=== PATIENT | female | born 1940 | race Caucasian/White ===

== ENCOUNTER 2019-07-06 09:20 | Outpatient (CLI) | payer MEDICARE, SELFPAY ==
[2019-07-06 09:33] LABS: Basophils Absolute Auto 0.1 K/mm3 (0.0-0.1); Basophils Percent Auto 1.8 % (0.2-1.2); Eosinophils Absolute Auto 0.1 K/mm3 (0-0.3); Eosinophils Percent Auto 1.8 % (0-4.4); Hematocrit 42.4 % (37.0-47.0); Hemoglobin 13.5 g/dL (12.0-15.0); Immature Granulocyte Absolute 0.01 K/mm3 (0.00-0.031); Immature Granulocyte Percent A 0.2 % (0-0.5); Lymphocytes Absolute Auto 0.88 K/mm3 (0.9-3.2); Lymphocytes Percent Auto 17.7 % (18.3-44.2); Mean Corpuscular HGB Conc 31.8 g/dl (32-36); Mean Corpuscular Hemoglobin 29.8 pg (26-34); Mean Corpuscular Volume 93.6 fl (80-100); Mean Platelet Volume 11.1 fl (7.4-10.4); Monocytes Absolute Auto 0.5 K/mm3 (0.1-0.6); Monocytes Percent Auto 10.5 % (2.6-8.5); Neutrophils Absolute Auto 3.4 K/mm3 (1.3-6.7); Platelet Count Result 248 k/mm3 (150-375); Red Blood Count 4.53 M/mm3 (4.2-5.4); Red Cell Distribution Width 12.8 % (11.5-14.5)
[2019-07-06 09:53] LABS: Alanine Aminotransferase 16 U/L (4-35); Albumin Level 4.6 g/dL (3.5-5.1); Alkaline Phosphatase 82 U/L (38-126); Aspartate Amino Transferase 21 U/L (14-36); Bilirubin,Total 0.8 mg/dL (0.2-1.3); Blood Urea Nitrogen 23 mg/dL (7-17); Calcium 9.9 mg/dL (8.4-10.2); Carbon Dioxide 30 mmol/L (22-30); Chloride 100 mmol/L (98-107); Cholesterol 180 mg/dL (0-200); Estimated Glomerular Filt Rate 60; Glucose 112 mg/dL (65-105); HDL Direct 89 mg/dL; Sodium 138 mmol/L (137-145); Triglycerides 89 mg/dL (<150)
[2019-07-06 10:04] LABS: LDL Cholesterol Direct 78 mg/dL
== END 2019-07-06 09:21 | disposition home or self-care (01) ==
PROVIDERS: PCP Family Medicine; Visit Provider Family Medicine
DX: E78.5 Hyperlipidemia, unspecified (principal); E55.9 Vitamin D deficiency, unspecified; R73.03 Prediabetes; E03.9 Hypothyroidism, unspecified
CPT/HCPCS: 36415; 80053; 80061; 82306; 83036; 84443; 85025

== ENCOUNTER 2019-07-10 13:06 | Outpatient (CLI) | payer MEDICARE, SELFPAY ==
--- NOTE | ~2019-07-10 | DEXA_ITS ---
Bone Density Report Name: Carmina Clemens Age: 78 Sex: Female Ethnicity: White Date of : 1940 Indication: postmenopausal; parental hip fracture; height loss; cancer; hysterectomy; Referring Provider: Leanna Baum Study: Bone densitometry was performed. Exam Date: July 10, 2019 Accession number: [id number] Bone Density: Region BMD T-score Z-score Classification AP Spine (L1-L4) 0.932 -1.0 1.6 Normal Femoral Neck (Left) 0.714 -1.2 1.1 Osteopenia Total Hip (Left) 0.863 -0.6 1.4 Normal Total Hip Bilateral Avg 0.821 -1.0 1.0 Osteopenia Femoral Neck (Right) 0.639 -1.9 0.4 Osteopenia Total Hip (Right) 0.778 -1.3 0.7 Osteopenia World Health Organization criteria for BMD impression classify patients as: Normal (T-score at or above -1.0), Osteopenia (T-score between -1.0 and -2.5), or Osteoporosis (T-score at or below -2.5). 10-year Fracture Risk(1): Major Osteoporotic Fracture 24% Hip Fracture 15% Reported Risk Factors: [place] (), Neck BMD=0.639, BMI=20.7, parental fracture (1) FRAX(R) Version 3.08. Fracture probability calculated for an untreated patient. Fracture probability may be lower if the patient has received treatment. Previous Exams: Region Exam Age BMD T-score BMD Change BMD Change Date g/cm2 vs Baseline vs Previous AP Spine(L1-L4) 07/10/2019 78 0.932 -1.0 -0.070(-7.0%)# -0.070(-7.0%)# 11/28/2001 61 1.002 -0.4 Total Hip(Left) 07/10/2019 78 0.863 -0.6 0.018(2.2%)# 0.018(2.2%)# 11/28/2001 61 0.845 -0.8 Total Hip(Right) 07/10/2019 78 0.778 -1.3 -0.058(-6.9%)# -0.058(-6.9%)# 11/28/2001 61 0.836 -0.9 *Denotes significance at 95% confidence level, LSC for AP Spine = 0.022 g/cm2, LSC for Total Hip = 0.027 g/cm2 Clinical Information Provided by Patient: Parent has had a hip fracture Has used the following medications: Vitamin D, Calcium Has the following medical conditions: Cancer, Hysterectomy Patient maximum height was 68 Menopause Age: 47 Onset of menses at age 12 Number of children 1 Impression: The patient has low bone mass, based on the Right Femoral Neck T-score. The patient has an estimated ten-year risk of hip fracture of 15% and an estimated ten-year risk of major fracture of 24%, based on the WHO FRAX algorithm. The patient has risk factors, including: parental hip fracture. No significant bone loss was observed. Discussion: BONE DENSITY IS LOW AT ONE OR MORE SKELETAL SITES
== END 2019-07-10 13:07 | disposition home or self-care (01) ==
PROVIDERS: PCP Family Medicine; Visit Provider Family Medicine
DX: Z78.0 Asymptomatic menopausal state (principal); M85.852 Other specified disorders of bone density and structure, left thigh; M85.851 Other specified disorders of bone density and structure, right thigh
CPT/HCPCS: 77080

== ENCOUNTER 2020-09-23 08:37 | Outpatient (CLI) | payer MEDICARE, SELFPAY ==
[2020-09-23 09:54] LABS: Erythrocyte Sedimentation Rate 27 mm/hr (0-20)
[2020-09-23 10:30] LABS: Free T4 Free Thyroxine 1.13 ng/mL (0.78-2.19)
[2020-09-23 10:48] LABS: Folic Acid 14.6 ng/mL (2.76->20)
[2020-10-02 11:55] LABS: Anti Nuclear Antibody Titer 1:40 (Negative)
== END 2020-09-23 08:38 | disposition home or self-care (01) ==
PROVIDERS: PCP Family Medicine
DX: R41.3 Other amnesia (principal)
CPT/HCPCS: 36415; 82607; 82746; 84439; 84443; 85652; 86038; 86039

== ENCOUNTER 2021-01-16 11:34 | Outpatient (CLI) | payer MEDICARE, SELFPAY ==
[2021-01-16 12:34] LABS: Hematocrit 41.8 % (37.0-47.0); Mean Corpuscular HGB Conc 31.1 g/dl (32-36); Mean Corpuscular Hemoglobin 29.3 pg (26-34); Mean Corpuscular Volume 94.4 fl (80-100); Mean Platelet Volume 10.9 fl (7.4-10.4); Platelet Count Result 182 k/mm3 (150-375); Red Blood Count 4.43 M/mm3 (4.2-5.4); Red Cell Distribution Width 12.9 % (11.5-14.5); White Blood Count 4.4 K/mm3 (4.5-10.0)
[2021-01-16 12:40] LABS: Add Urine Microscopic? NO; Appearance Urine Clear (Clear); Bilirubin Urine Negative (Negative); Blood Urine Negative (Negative); Color Urine Straw (Yellow); Glucose Urine UA Negative (Negative); Ketones Urine Negative (Negative); Leukocyte Esterase Ur Negative LEU/UL (Negative); Nitrate Urine Negative (Negative); Protein Urine Negative (Negative); Specific Grav Ur 1.011 (1.001-1.035); Urobilinogen Urine Negative mg/dL (<2.0)
[2021-01-16 12:57] LABS: Alanine Aminotransferase 26 U/L (4-35); Albumin Level 4.2 g/dL (3.5-5.1); Alkaline Phosphatase 86 U/L (38-126); Anion Gap 4 mmol/L (8-16); Aspartate Amino Transferase 27 U/L (14-36); Bilirubin,Total 0.6 mg/dL (0.2-1.3); Blood Urea Nitrogen 21 mg/dL (7-17); CRP < 0.5 mg/dL (<1.0); Calcium 9.5 mg/dL (8.4-10.2); Carbon Dioxide 31 mmol/L (22-30); Chloride 104 mmol/L (98-107); Estimated Glomerular Filt Rate 60; Glucose 98 mg/dL (65-110); Potassium 4.3 mmol/L (3.4-5.0); Sodium 139 mmol/L (137-145)
[2021-01-16 13:01] LABS: Complement C3 120 mg/dL (88-165)
[2021-01-16 13:23] LABS: Erythrocyte Sedimentation Rate 15 mm/hr (0-20)
[2021-01-19 11:24] LABS: SM Antibody <1.0; SM/RNP Antibody <1.0; SS-A <1.0; SS-B <1.0
[2021-01-21 04:57] LABS: Lupus dRVVT 1:1 Mix Interpreta Not Indicated; Lupus dRVVT Screen 35 sec (<=45); PTT-LA Screen 30 sec (<=40)
== END 2021-01-16 11:35 | disposition home or self-care (01) ==
LOC: ANHLAB 11:46
PROVIDERS: PCP Family Medicine; Visit Provider Internal Medicine
DX: R76.8 Other specified abnormal immunological findings in serum (principal); M19.90 Unspecified osteoarthritis, unspecified site; Z51.81 Encounter for therapeutic drug level monitoring; Z79.899 Other long term (current) drug therapy
CPT/HCPCS: 36415; 80053; 81003; 85027; 85613; 85652; 85730; 86140; 86160; 86225; 86235

== ENCOUNTER 2021-07-20 08:46 | Outpatient (CLI) | payer MEDICARE, SELFPAY ==
[2021-07-20 09:28] LABS: Basophils Absolute Auto 0.1 K/mm3 (0.0-0.1); Basophils Percent Auto 1.4 % (0.2-1.2); Eosinophils Absolute Auto 0.1 K/mm3 (0-0.3); Eosinophils Percent Auto 2.2 % (0-4.4); Hemoglobin 13.8 g/dL (12.0-15.0); Immature Granulocyte Absolute 0.01 K/mm3 (0.00-0.031); Immature Granulocyte Percent A 0.3 % (0-0.5); Lymphocytes Absolute Auto 0.81 K/mm3 (0.9-3.2); Lymphocytes Percent Auto 22.2 % (18.3-44.2); Mean Corpuscular HGB Conc 32.1 g/dl (32-36); Mean Corpuscular Hemoglobin 30.4 pg (26-34); Mean Corpuscular Volume 94.7 fl (80-100); Mean Platelet Volume 11.1 fl (7.4-10.4); Monocytes Absolute Auto 0.5 K/mm3 (0.1-0.6); Monocytes Percent Auto 13.7 % (2.6-8.5); Neutrophils Absolute Auto 2.2 K/mm3 (1.3-6.7); Neutrophils Percent Auto 60.2 % (45.5-73.1); Platelet Count Result 175 k/mm3 (150-375); Red Blood Count 4.54 M/mm3 (4.2-5.4); Red Cell Distribution Width 13.3 % (11.5-14.5); White Blood Count 3.7 K/mm3 (4.5-10.0)
[2021-07-20 09:42] LABS: Alanine Aminotransferase 24 U/L (4-35); Albumin Level 4.2 g/dL (3.5-5.1); Alkaline Phosphatase 78 U/L (38-126); Anion Gap 3 mmol/L (8-16); Aspartate Amino Transferase 24 U/L (14-36); Bilirubin,Total 0.6 mg/dL (0.2-1.3); Blood Urea Nitrogen 23 mg/dL (7-17); Calcium 8.8 mg/dL (8.4-10.2); Carbon Dioxide 31 mmol/L (22-30); Chloride 104 mmol/L (98-107); Cholesterol 168 mg/dL (0-200); Estimated Glomerular Filt Rate 60; Glucose 121 mg/dL (65-110); HDL Direct 94 mg/dL; Potassium 4.3 mmol/L (3.4-5.0); Sodium 138 mmol/L (137-145); Triglycerides 77 mg/dL (<150)
[2021-07-20 09:50] LABS: LDL Cholesterol Direct 50 mg/dL
[2021-07-20 10:24] LABS: Vitamin D 25 Hydroxy 39.6 ng/mL
== END 2021-07-20 08:47 | disposition home or self-care (01) ==
LOC: ANHLAB 08:48
PROVIDERS: PCP Family Medicine; Visit Provider Family Medicine
DX: E55.9 Vitamin D deficiency, unspecified (principal); E78.5 Hyperlipidemia, unspecified; E53.8 Deficiency of other specified B group vitamins; R73.03 Prediabetes; E03.9 Hypothyroidism, unspecified; F03.90 Unspecified dementia, unspecified severity, without behavioral disturbance, psychotic disturbance, mood disturbance, and anxiety
CPT/HCPCS: 36415; 80053; 80061; 82306; 82607; 83036; 84443; 85025

== ENCOUNTER 2021-09-11 14:32 | Emergency (ER) | payer MEDICARE, SELFPAY ==
--- NOTE | ~2021-09-11 | XR_ITS ---
XR chest 2V DATE: 09/11/2021 15:11 INDICATION: Cough, fever TECHNIQUE: PA and lateral views COMPARISON: None FINDINGS: Bilateral hyperinflation, suggesting obstructive airways disease. Borderline heart size. There is mild aortic arch calcification, mild aortic unfolding. No pulmonary infiltrate or consolidation, pleural effusion or pulmonary vascular congestion or pneumo thorax is detected. There is diffuse osteopenia. Surgical clips, right breast. IMPRESSION: Bilateral hyperinflation, suggesting COPD Borderline heart size Aortic atherosclerosis Reviewed, dictated and finalized at location A.
[2021-09-11 14:43] VITALS: BP 129/70; PULSE 95; RESP 18; TEMP 38.2; O2SAT 96
--- NOTE | 2021-09-11 14:49 | ED.URI ---
HPI - URI/Sore Throat General Chief Complaint: Fever Stated Complaint: fever Time Seen by Provider: 09/11/21 14:50 Source: patient, RN notes reviewed and old records reviewed Mode of arrival: ambulatory Limitations: no limitations History of Present Illness HPI Narrative: 81 year old female accompanied by spouse presents to express care with complaints of having sore throat, nasal congestion, with drainage,cough and raspy voice for the past 2 days. Patient has been running a fever and has had some chills, has not taken any OTC medication for fever. Spouse states that patient has been using Flonase nasal spray and cough drops. Spouse reports that patient had pneumonia a few years ago. Patient reports that she doesn't feel short of breath and denies any pain to her chest.Patient has been Covid vaccinated and has had flu shot this season. MD elicited complaint: fever, cough, sore throat, rhinorrhea and nasal congestion Pertinent past history: pneumonia Onset (ago): day(s) (2) Able to tolerate fluids by mouth: Yes Related Data Home Medications Medication Instructions Recorded Confirmed calcium carbonate 500 mg-vitamin 1 tablet PO DAILY 07/05/19 09/11/21 D3 5 mcg (200 unit) tablet cholecalciferol (vitamin D3) 50 50 mcg PO DAILY 07/05/19 09/11/21 mcg (2,000 unit) capsule latanoprost 0.005 % eye drops 1 drop EACH EYE DAILY 07/05/19 09/11/21 clobetasol 0.05 % scalp solution 1 applic TOPICAL BID 07/07/20 09/11/21 memantine 10 mg tablet 10 mg PO BID 01/16/21 09/11/21 donepezil 10 mg tablet 10 mg PO QHS 01/19/21 09/11/21 tretinoin 0.025 % topical cream 1 applic TOPICAL QHS 07/16/21 09/11/21 triamcinolone acetonide 0.05 % 1 applic TOPICAL DAILY 07/16/21 09/11/21 topical ointment Allergies Allergy/AdvReac Type Severity Reaction Status Date / Time Penicillins Allergy Mild HIVES Verified 07/16/21 09:13 Review of Systems Review of Systems: CONSTITUTIONAL: Positive for fever, chills, or sweats. EYES: Denies visual changes, redness, or discharge. ENT: Positive rhinorrhea, congestion, sore throat, no otalgia. CARDIOVASCULAR: Denies chest pain, palpitations, or edema. RESPIRATORY: Positive for cough denies any dyspnea. GASTROINTESTINAL: Denies abdominal pain, nausea, vomiting, or diarrhea. GENITOURINARY: Denies dysuria or hematuria. SKIN: Denies rash or itching. MUSCULOSKELETAL: Denies back pain, joint pain, or myalgia. NEUROLOGIC:Positive for frontal headache, no numbness, or weakness. 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 There is no relevant family history pertinent to the presenting complaint Exam Narrative: GENERAL: Well-appearing, fair-nourished, and in no acute distress. HEAD: Normocephalic, atraumatic. EYES: PERRLA and EOMI. ENT: Nares membranes red with clear rhinorrhea no epistaxis. Mucous membranes moist.Tm's normal with dull light reflex some old wax in ear canals noted, t
== END 2021-09-11 15:33 | disposition home or self-care (01) ==
PROVIDERS: Emergency Provider Registered Nurse; PCP Family Medicine
DX: J32.9 Chronic sinusitis, unspecified (principal); E78.5 Hyperlipidemia, unspecified; E03.9 Hypothyroidism, unspecified; M85.80 Other specified disorders of bone density and structure, unspecified site; R73.03 Prediabetes; E55.9 Vitamin D deficiency, unspecified; Z98.42 Cataract extraction status, left eye; Z98.41 Cataract extraction status, right eye; Z85.3 Personal history of malignant neoplasm of breast; F03.90 Unspecified dementia, unspecified severity, without behavioral disturbance, psychotic disturbance, mood disturbance, and anxiety
CPT/HCPCS: 71046; 87804; 99213; G0463

== ENCOUNTER 2021-10-30 14:58 | Emergency (ER) | payer MEDICARE, SELFPAY ==
--- NOTE | 2021-10-30 15:01 | ED.URI ---
HPI - URI/Sore Throat General Chief Complaint: Upper Respiratory Infection Stated Complaint: congestion/cough/tired Time Seen by Provider: 10/30/21 15:01 Mode of arrival: ambulatory History of Present Illness HPI Narrative: Patient is an 81-year-old female who presents the urgent care with her spouse with complaints of cough, fatigue and congestion. Patient states that started it started Tuesday and she has gotten worse since last night. Patient denies of any shortness of breath or chest pain. Patient states she is been taking allergy medication and using Flonase. Denies of any nausea or vomiting. Denies of any ill exposures. No other acute complaints. No acute distress noted. Patient aware of the plan of care. Some parts of this dictation were generated by voice recognition software and may contain typographical and/or grammatical inaccuracies. Related Data Home Medications Medication Instructions Recorded Confirmed calcium carbonate 500 mg-vitamin 1 tablet PO DAILY 07/05/19 09/24/21 D3 5 mcg (200 unit) tablet (Os-Amado 500 + D3) cholecalciferol (vitamin D3) 50 50 mcg PO DAILY 07/05/19 09/24/21 mcg (2,000 unit) capsule latanoprost 0.005 % eye drops 1 drop ophthalmic (eye) DAILY 07/05/19 09/24/21 memantine 10 mg tablet 10 mg PO BID 01/16/21 09/24/21 donepezil 10 mg tablet 10 mg PO QHS 01/19/21 09/24/21 tretinoin 0.025 % topical cream 1 applic topical QHS 07/16/21 09/24/21 Allergies Allergy/AdvReac Type Severity Reaction Status Date / Time Penicillins Allergy Mild HIVES Verified 09/24/21 15:37 Review of Systems Review of Systems: CONSTITUTIONAL: Denies fever, chills, or sweats. Reports of fatigue EYES: Denies visual changes, redness, or discharge. ENT: Reports of sinus congestion, rhinorrhea CARDIOVASCULAR: Denies chest pain, palpitations, or edema. RESPIRATORY: Reports of cough without dyspnea GASTROINTESTINAL: Denies abdominal pain, nausea, vomiting, or diarrhea. GENITOURINARY: Denies dysuria or hematuria. SKIN: Denies rash or itching. MUSCULOSKELETAL: Denies back pain, joint pain, or myalgia. NEUROLOGIC: Denies headache, numbness, or weakness. All other systems reviewed are negative, except as documented in HPI. [facility] Past Medical History Medical History Breast cancer Cataract 06/2017 Colon polyps Cystocele Dementia Dyslipidemia History of right breast cancer Hx of uterine prolapse Hypothyroidism (acquired) Impacted cerumen of both ears Osteopenia Osteopenia after menopause Prediabetes Vitamin D deficiency Surgical History Surgical History History of appendectomy 195 History of cataract surgery both eyes - 06/2017 History of lumpectomy of right breast 2003 History of sacrocolpopexy 2017 History of total hysterectomy 1997 Social History Social History Second hand tobacco smoke exposure: No Alcohol intake: never Substance use: never Substance use type: does not use Comments At the time of my signature, I reviewed and agree with the nursing past medical, surgical, social, and family history. There is no relevant family history pertinent to the patient complaint. Exam Narrative: GENERAL: This is a well-nourished, well-developed patient, in no apparent distress. HEAD: normocephalic, atraumatic. Frontal sinus tenderness EYES: PERRL. Sclera clear/white. Vision is grossly intact. EARS: External ears normal, auditory canals clear and without drainage, TMs normal without perforation. Hearing grossly intact. NOSE: External nose normal with no obvious nasal discharge, nares without redness, no rhinorrhea. THROAT: Mucous membranes moist, posterior pharynx clear. Moderate postnasal drainage NECK: Neck supple CARDIOVASCULAR: Regular rate and rhythm RESPIRATORY: Clear to auscultation. Breath sounds equal bilatera
[2021-10-30 15:11] VITALS: BP 142/71; PULSE 108; RESP 18; TEMP 38.7; O2SAT 98
== END 2021-10-30 15:45 | disposition home or self-care (01) ==
PROVIDERS: Emergency Provider Nurse Practitioner Family; PCP Family Medicine
DX: J10.1 Influenza due to other identified influenza virus with other respiratory manifestations (principal); Z20.822 Contact with and (suspected) exposure to COVID-19; F03.90 Unspecified dementia, unspecified severity, without behavioral disturbance, psychotic disturbance, mood disturbance, and anxiety; E78.5 Hyperlipidemia, unspecified; E03.9 Hypothyroidism, unspecified; M85.80 Other specified disorders of bone density and structure, unspecified site; R73.03 Prediabetes; E55.9 Vitamin D deficiency, unspecified; Z85.3 Personal history of malignant neoplasm of breast; Z98.42 Cataract extraction status, left eye; Z98.41 Cataract extraction status, right eye
CPT/HCPCS: 87426; 87804; 99213; C9803; G0463

== ENCOUNTER 2022-01-25 12:41 | Outpatient (CLI) | payer MEDICARE, SELFPAY ==
[2022-01-25 19:40] LABS: Basophils Absolute Auto 0.1 K/mm3 (0.0-0.1); Basophils Percent Auto 1.1 % (0.2-1.2); Eosinophils Percent Auto 0.3 % (0-4.4); Hematocrit 44.3 % (37.0-47.0); Hemoglobin 13.9 g/dL (12.0-15.0); Immature Granulocyte Absolute 0.03 K/mm3 (0.00-0.031); Immature Granulocyte Percent A 0.5 % (0-0.5); Lymphocytes Absolute Auto 0.69 K/mm3 (0.9-3.2); Lymphocytes Percent Auto 10.7 % (18.3-44.2); Mean Corpuscular HGB Conc 31.4 g/dl (32-36); Mean Corpuscular Hemoglobin 30.3 pg (26-34); Mean Corpuscular Volume 96.7 fl (80-100); Mean Platelet Volume 11.7 fl (7.4-10.4); Monocytes Absolute Auto 0.6 K/mm3 (0.1-0.6); Monocytes Percent Auto 9.1 % (2.6-8.5); Neutrophils Absolute Auto 5.1 K/mm3 (1.3-6.7); Neutrophils Percent Auto 78.3 % (45.5-73.1); Platelet Count Result 183 k/mm3 (150-375); Red Blood Count 4.58 M/mm3 (4.2-5.4); Red Cell Distribution Width 13.2 % (11.5-14.5); White Blood Count 6.5 K/mm3 (4.5-10.0)
[2022-01-25 20:17] LABS: Alanine Aminotransferase 20 U/L (6-35); Albumin Level 4.5 g/dL (3.5-5.1); Alkaline Phosphatase 87 U/L (38-126); Anion Gap 8 mmol/L (8-16); Aspartate Amino Transferase 24 U/L (14-36); Bilirubin,Total 0.5 mg/dL (0.2-1.3); Blood Urea Nitrogen 17 mg/dL (7-17); Calcium 9.7 mg/dL (8.4-10.2); Carbon Dioxide 31 mmol/L (22-30); Chloride 100 mmol/L (98-107); Estimated Glomerular Filt Rate 60; Glucose 91 mg/dL (65-110); Potassium 4.5 mmol/L (3.4-5.0); Sodium 139 mmol/L (137-145)
[2022-01-25 20:38] LABS: Hemoglobin A1C 5.8 % (<5.7)
== END 2022-01-25 12:42 | disposition home or self-care (01) ==
LOC: ANHGOSHLAB 12:45
PROVIDERS: PCP Family Medicine; Visit Provider Family Medicine
DX: R73.03 Prediabetes (principal); E03.9 Hypothyroidism, unspecified; I10 Essential (primary) hypertension; D72.819 Decreased white blood cell count, unspecified
CPT/HCPCS: 36415; 80053; 83036; 84443; 85025

== ENCOUNTER 2022-05-15 14:05 | Emergency (ER) | payer MEDICARE, SELFPAY ==
--- NOTE | ~2022-05-15 | XR_ITS ---
EXAMINATION: XR chest 2V Exam Date/Time: 05/15/2022 16:35 [employer] HISTORY: WHEEZING, COUGH Comparison: 09/11/2021. RESULT: Lines, tubes, and devices: Surgical clips over the right breast. Lungs and pleura: Subtle, subsegmental reticulonodular and groundglass opacities in the left mid and lower lung, with minimal left lateral costophrenic angle blunting. Senescent change. Stable right up per lobe granuloma. Cardiomediastinal silhouette: Stable. Other: No acute osseous or upper abdominal finding. IMPRESSION: Left mid and lower lobe/lingular pulmonary opacities may reflect bronchiolitis as can be seen with at ypical infection, asthma, aspiration, and small airways disease. Reviewed, dictated and finalized at location K. L SERVICE SUPERVISOR IMPRESSION: Left mid and lower lobe/lingular pulmonary opacities may reflect bronchiolitis as can be seen with atypical infection, asthma, aspiration, and small airways d isease.
[2022-05-15 15:29] VITALS: BP 158/62; PULSE 84; RESP 16; TEMP 37.4; O2SAT 100
--- NOTE | 2022-05-15 16:20 | ED.FEVER ---
HPI - Fever General Chief Complaint: Fever Stated Complaint: FEVER/CONGESTION Time Seen by Provider: 05/15/22 16:20 Source: patient and RN notes reviewed Mode of arrival: ambulatory Limitations: no limitations History of Present Illness HPI Narrative: 81-year-old female with history of dementia presented with for complaint of productive cough of yellow/green sputum for about 4 days. She also endorses sinus pressure and congestion, hoarse voice, and low fever up to 100 at home. She has a history of pneumonia. She denies wheezing, nausea, vomiting, diarrhea. She has not taken anything for her symptoms. He states they did an at-home COVID test that was negative. Related Data Home Medications Medication Instructions Recorded Confirmed calcium carbonate 500 mg-vitamin 1 tablet PO DAILY 07/05/19 05/15/22 D3 5 mcg (200 unit) tablet (Os-Amado 500 + D3) cholecalciferol (vitamin D3) 50 50 mcg PO DAILY 07/05/19 05/15/22 mcg (2,000 unit) capsule latanoprost 0.005 % eye drops 1 drop ophthalmic (eye) DAILY 07/05/19 05/15/22 memantine 10 mg tablet 10 mg PO BID 01/16/21 05/15/22 donepezil 10 mg tablet 10 mg PO QHS 01/19/21 05/15/22 clobetasol 0.05 % scalp solution 1 applic topical DAILY 01/25/22 05/15/22 estradiol 0.01% (0.1 mg/gram) 1 g vaginal 2XW 01/25/22 05/15/22 vaginal cream Allergies Allergy/AdvReac Type Severity Reaction Status Date / Time Penicillins Allergy Mild HIVES Verified 05/15/22 16:26 Review of Systems Review of Systems: CONSTITUTIONAL: Denies malaise, chills, sweats, fever EYES: Denies visual changes, redness, or discharge ENT: Reports rhinorrhea, congestion, sinus pain, denies otalgia, sore throat CARDIOVASCULAR: Denies chest pain, palpitations, edema RESPIRATORY: Reports cough, post nasal drainage. Denies dyspnea GASTROINTESTINAL: Denies abdominal pain, nausea, vomiting, diarrhea MUSCULOSKELETAL: Denies myalgia NEUROLOGIC: Denies headache PMFSH Past Medical History Medical History Breast cancer Cataract 06/2017 Colon polyps Cystocele Dementia Dyslipidemia History of right breast cancer Hx of uterine prolapse Hypothyroidism (acquired) Impacted cerumen of both ears Osteopenia Osteopenia after menopause Prediabetes Vitamin D deficiency Surgical History Surgical History History of appendectomy 195 History of cataract surgery both eyes - 06/2017 History of lumpectomy of right breast 2003 History of sacrocolpopexy 2017 History of total hysterectomy 1997 Social History Social History Smoking status: Never smoker Second hand tobacco smoke exposure: No Alcohol intake: never Substance use: never Substance use type: does not use Additional living arrangements comments: Gender identity (if verbalized by the patient): Female Sexual Orientation (if Verbalized by the Patient): Straight or Heterosexual Spiritual care concerns: No Exam Narrative: GENERAL: well-appearing, nontoxic no acute distress. HEAD: Normocephalic EYES: PERRLA, conjunctivae clear ENT: Mucous membranes moist. TMs pearly stewart with dull light reflex bilaterally; no tragal tenderness. Oropharynx without lesions or exudate NECK: Supple. No lymphadenopathy CHEST: Clear to auscultation, slightly diminished lower lobes; No wheezing, rhonchi, rales, or stridor. No respiratory distress, speaks in full sentences. HEART: Regular rate and rhythm. No murmur heard. SKIN: Warm, dry, no rash. NEURO: Alert and oriented x3. PSYCH: Normal mood and affect Course Course Emergency Course: Patient is aware of diagnosis, understands and agrees to treatment plan. Anticipatory guidance given. Patient agrees to follow-up as directed and is aware of reasons to seek care at the emergency department. Portions of this record may peace
== END 2022-05-15 18:08 | disposition home or self-care (01) ==
PROVIDERS: Emergency Provider Nurse Practitioner Family; PCP Family Medicine
DX: R05.9 Cough, unspecified (principal); E78.5 Hyperlipidemia, unspecified; E03.9 Hypothyroidism, unspecified; M85.80 Other specified disorders of bone density and structure, unspecified site; R73.03 Prediabetes; E55.9 Vitamin D deficiency, unspecified; Z85.3 Personal history of malignant neoplasm of breast; F03.90 Unspecified dementia, unspecified severity, without behavioral disturbance, psychotic disturbance, mood disturbance, and anxiety
CPT/HCPCS: 71046; 99213; G0463

== ENCOUNTER 2022-07-23 10:52 | Outpatient (CLI) | payer MEDICARE, SELFPAY ==
[2022-07-23 19:22] LABS: Basophils Absolute Auto 0.1 K/mm3 (0.0-0.1); Basophils Percent Auto 1.8 % (0.2-1.2); Eosinophils Percent Auto 0.8 % (0-4.4); Hematocrit 41.7 % (37.0-47.0); Hemoglobin 13.6 g/dL (12.0-15.0); Immature Granulocyte Absolute 0.01 K/mm3 (0.00-0.031); Immature Granulocyte Percent A 0.3 % (0-0.5); Mean Corpuscular HGB Conc 32.6 g/dl (32-36); Mean Corpuscular Hemoglobin 30.7 pg (26-34); Mean Corpuscular Volume 94.1 fl (80-100); Mean Platelet Volume 11.7 fl (7.4-10.4); Monocytes Absolute Auto 0.4 K/mm3 (0.1-0.6); Monocytes Percent Auto 10.2 % (2.6-8.5); Neutrophils Absolute Auto 2.5 K/mm3 (1.3-6.7); Neutrophils Percent Auto 63.9 % (45.5-73.1); Platelet Count Result 158 k/mm3 (150-375); Red Blood Count 4.43 M/mm3 (4.2-5.4); Red Cell Distribution Width 13.5 % (11.5-14.5); White Blood Count 3.9 K/mm3 (4.5-10.0)
[2022-07-23 19:44] LABS: Alanine Aminotransferase 27 U/L (6-35); Albumin Level 4.4 g/dL (3.5-5.1); Alkaline Phosphatase 84 U/L (38-126); Anion Gap 2 mmol/L (8-16); Aspartate Amino Transferase 27 U/L (14-36); Bilirubin,Total 0.7 mg/dL (0.2-1.3); Blood Urea Nitrogen 19 mg/dL (7-17); Calcium 9.1 mg/dL (8.4-10.2); Carbon Dioxide 32 mmol/L (22-30); Chloride 105 mmol/L (98-107); Cholesterol 170 mg/dL (0-200); Estimated Glomerular Filt Rate 60; Glucose 109 mg/dL (65-110); HDL Direct 90 mg/dL; Potassium 4.3 mmol/L (3.4-5.0); Sodium 139 mmol/L (137-145); Triglycerides 80 mg/dL (<150)
[2022-07-23 19:54] LABS: Vitamin D 25 Hydroxy 40.8 ng/mL
[2022-07-23 19:55] LABS: LDL Cholesterol Direct 52 mg/dL
== END 2022-07-23 10:53 | disposition home or self-care (01) ==
LOC: ANHGOSHLAB 10:54
PROVIDERS: PCP Family Medicine; Visit Provider Family Medicine
DX: R73.03 Prediabetes (principal); E78.5 Hyperlipidemia, unspecified; E03.9 Hypothyroidism, unspecified; E53.8 Deficiency of other specified B group vitamins; I10 Essential (primary) hypertension; J34.89 Other specified disorders of nose and nasal sinuses; E55.9 Vitamin D deficiency, unspecified
CPT/HCPCS: 36415; 80053; 80061; 82306; 82607; 83036; 84443; 85025

== ENCOUNTER 2023-01-19 10:45 | Outpatient (CLI) | payer MEDICARE, SELFPAY ==
[2023-01-19 19:28] LABS: Basophils Absolute Auto 0.1 K/mm3 (0.0-0.1); Basophils Percent Auto 1.3 % (0.2-1.2); Eosinophils Percent Auto 0.5 % (0-4.4); Hematocrit 41.7 % (37.0-47.0); Hemoglobin 13.3 g/dL (12.0-15.0); Lymphocytes Absolute Auto 0.62 K/mm3 (0.9-3.2); Lymphocytes Percent Auto 16.7 % (18.3-44.2); Mean Corpuscular HGB Conc 31.9 g/dl (32-36); Mean Corpuscular Volume 94.1 fl (80-100); Mean Platelet Volume 12.4 fl (7.4-10.4); Monocytes Absolute Auto 0.4 K/mm3 (0.1-0.6); Monocytes Percent Auto 10.8 % (2.6-8.5); Neutrophils Absolute Auto 2.6 K/mm3 (1.3-6.7); Neutrophils Percent Auto 70.7 % (45.5-73.1); Platelet Count Result 168 k/mm3 (150-375); Red Blood Count 4.43 M/mm3 (4.2-5.4); Red Cell Distribution Width 13.1 % (11.5-14.5); White Blood Count 3.7 K/mm3 (4.5-10.0)
[2023-01-19 20:57] LABS: Alanine Aminotransferase 22 U/L (6-35); Albumin Level 4.1 g/dL (3.5-5.1); Alkaline Phosphatase 87 U/L (38-126); Anion Gap 4 mmol/L (8-16); Aspartate Amino Transferase 25 U/L (14-36); Bilirubin,Total 0.6 mg/dL (0.2-1.3); Blood Urea Nitrogen 17 mg/dL (7-17); Calcium 9.2 mg/dL (8.4-10.2); Carbon Dioxide 32 mmol/L (22-30); Chloride 101 mmol/L (98-107); Cholesterol 161 mg/dL (0-200); Estimated Glomerular Filt Rate > 60; Glucose 127 mg/dL (65-110); HDL Direct 88 mg/dL; Potassium 3.7 mmol/L (3.4-5.0); Sodium 137 mmol/L (137-145); Triglycerides 57 mg/dL (<150)
[2023-01-19 21:09] LABS: LDL Cholesterol Direct 59 mg/dL
[2023-01-23 11:36] LABS: Vitamin D 1,25 (OH)2 Total 38 pg/mL (18-72); Vitamin D2 1,25 (OH)2 <8 pg/mL; Vitamin D3 1,25 (OH)2 38 pg/mL
== END 2023-01-19 10:46 | disposition home or self-care (01) ==
PROVIDERS: PCP Family Medicine; Visit Provider Nurse Practitioner Family
DX: I10 Essential (primary) hypertension (principal); E03.9 Hypothyroidism, unspecified; E55.9 Vitamin D deficiency, unspecified; Z78.0 Asymptomatic menopausal state; Z85.3 Personal history of malignant neoplasm of breast
CPT/HCPCS: 36415; 80053; 80061; 82652; 84443; 85025

== ENCOUNTER 2023-01-24 10:37 | Outpatient (CLI) | payer MEDICARE, SELFPAY ==
[2023-01-24 12:27] LABS: Hemoglobin A1C 6.5 % (<5.7)
== END 2023-01-24 10:38 | disposition home or self-care (01) ==
LOC: ANHGOSHLAB 10:39
PROVIDERS: PCP Family Medicine; Visit Provider Nurse Practitioner Family
DX: R73.9 Hyperglycemia, unspecified (principal)
CPT/HCPCS: 36415; 83036

== ENCOUNTER 2023-03-29 14:55 | Emergency (ER) | payer MEDICARE, SELFPAY ==
[2023-03-29 15:02] VITALS: BP 160/82; PULSE 81; RESP 16; TEMP 38; O2SAT 98
--- NOTE | 2023-03-29 15:38 | ED.URI ---
HPI - URI/Sore Throat General Chief Complaint: Upper Respiratory Infection Stated Complaint: Sore Throat;Cough Time Seen by Provider: 03/29/23 15:39 Source: patient, family, RN notes reviewed and old records reviewed Mode of arrival: ambulatory Limitations: no limitations History of Present Illness HPI Narrative: 82-year-old female accompanied by spouse with complaints of sore throat, fevers, cough,sinus congestion and drainage since attending football game Tuesday night. Patient has history of pneumonia in past, ear infections and early onset Alzheimer but is alert and oriented and is able to answer questions appropriately. Patient is febrile at present time has been taking some Tyylenol, using her nasal spray and also taking Claritin.Patient reports that she is hoarse and she has has some nasal drainage and cough which is dry, denies any shortness of breath or any body aches. MD elicited complaint: fever, cough, sore throat, rhinorrhea, nasal congestion and other (hoarseness) Pertinent past history: pneumonia and other (ear infections) Onset (ago): day(s) (4days) Pain scale (0-10): 5 Able to tolerate fluids by mouth: Yes Treatments prior to arrival: acetaminophen and other (nasal spray and Claritin) Related Data Home Medications Medication Instructions Recorded Confirmed cholecalciferol (vitamin D3) 50 50 mcg PO DAILY 07/05/19 03/29/23 mcg (2,000 unit) capsule latanoprost 0.005 % eye drops 1 drop ophthalmic (eye) DAILY 07/05/19 03/29/23 memantine 10 mg tablet 10 mg PO BID 01/16/21 03/29/23 donepezil 10 mg tablet 10 mg PO QHS 01/19/21 03/29/23 clobetasol 0.05 % scalp solution 1 applic topical DAILY 01/25/22 03/29/23 estradiol 0.01% (0.1 mg/gram) 1 g vaginal 2XW 01/25/22 03/29/23 vaginal cream Allergies Allergy/AdvReac Type Severity Reaction Status Date / Time Penicillins Allergy Mild HIVES Verified 03/29/23 15:21 Review of Systems Review of Systems: CONSTITUTIONAL: Reports malaise, chills, sweats, or fever. EYES: Denies visual changes, redness, or discharge. ENT: Reports rhinorrhea, congestion, sinus pain, no otalgia and sore throat.hoarseness CARDIOVASCULAR: Denies chest pain, palpitations, or edema. RESPIRATORY: Reports cough.? Denies acute dyspnea. GASTROINTESTINAL: Denies abdominal pain, nausea, vomiting, diarrhea SKIN: Denies rash or itching. MUSCULOSKELETAL: Denies myalgia. NEUROLOGIC: Denies headache. All systems reviewed & are unremarkable except as noted in HPI and below PMFSH Past Medical History Medical History Breast cancer Cataract 06/2017 Colon polyps Cystocele Dementia Dyslipidemia History of right breast cancer Hx of uterine prolapse Hypothyroidism (acquired) Impacted cerumen of both ears Osteopenia Osteopenia after menopause Perforation of right tympanic membrane Prediabetes Vesicular eczema of hands and feet Vitamin D deficiency Surgical History Surgical History History of appendectomy 1951 History of cataract surgery both eyes - 06/2017 History of lumpectomy of right breast 2002 History of sacrocolpopexy 2017 History of total hysterectomy 1997 Social History Social History Smoking status: Never smoker Second hand tobacco smoke exposure: No Alcohol intake: never Substance use: never Substance use type: does not use Lack of Transportation: No Lack of Food: Never True Current Housing: I Have Housing Concerned About Future Housing: No Difficulty Paying Gas/Electric Bills: No Difficulty Paying for Meds: No Currently Unemployed: No Education: Master's Degree or Higher Difficulty w/ Childcare or Family Care: No Living arrangements: with family Additional living arrangements comments: Occupation/Education: retired Gender identity (if verbalized by th
== END 2023-03-29 16:00 | disposition home or self-care (01) ==
PROVIDERS: Emergency Provider Registered Nurse; PCP Family Medicine
DX: J01.90 Acute sinusitis, unspecified (principal); R05.9 Cough, unspecified; F03.90 Unspecified dementia, unspecified severity, without behavioral disturbance, psychotic disturbance, mood disturbance, and anxiety; E78.5 Hyperlipidemia, unspecified; E03.9 Hypothyroidism, unspecified; M85.80 Other specified disorders of bone density and structure, unspecified site; R73.03 Prediabetes; E55.9 Vitamin D deficiency, unspecified; Z85.3 Personal history of malignant neoplasm of breast
CPT/HCPCS: 87081; 87880; 99213; G0463

== ENCOUNTER → 2023-04-27 12:55 | Outpatient (CLI) | payer MEDICARE, SELFPAY ==
--- NOTE | ~2023-04-27 | CT_ITS ---
EXAMINATION: CT chest abdomen pelvis w con DATE: 04/27/2023 13:29 INDICATION: Abnormal weight loss, history of breast cancer TECHNIQUE: Transaxial computed tomographic images of the chest, abdomen, and pelvis were obtained aft er the administration of 100 cc of Omnipaque 350 intravenous contrast. The dose-length product (DLP) was 346.58 mGy-cm. Automated exposure control and iterative reconstruction technique were employed. COMPARISON: None FINDINGS: CHEST CT: There are patchy airspace opacities of the lower lobes, right upper lobe, lingula, and right middle l obe. No pleural effusion or pneumothorax. There is right atrial enlargement of the heart. There are l umpectomy changes in the right breast. Skin thickening of the right breast likely reflects radiation change. There are no pathologically enlarged thoracic lymph nodes. There is mild thoracic spondylosis . ABDOMEN/PELVIS CT: The liver, spleen, gallbladder, and adrenal glands are normal. There is marked enlargement of the carson creatic duct with diffuse atrophy of the pancreas. There is a possible mass in the tail of the pancre as measuring up to 1.2 cm. There is wall thickening of the stomach near the gastroesophageal junction . The right kidney is unremarkable. Cysts of the left kidney measure up to 5 mm. There is calcified a therosclerosis of the aorta and many of the other arteries. No pathologically enlarged abdominal or p elvic lymph nodes are identified. No free intraperitoneal gas or evidence of bowel obstruction. A mod erate volume of colonic stool is present. There is mild lumbar spondylosis. IMPRESSION: 1. Patchy airspace opacities of the lungs, likely pneumonia. 2. Marked enlargement of the pancreatic duct, atrophy of the pancreas, and possible mass in the tail of the pancreas. Further evaluation by MRCP is recommended. 3. Wall thickening of the stomach near the gastroesophageal junction which could reflect gastritis or possibly malignancy. Consider endoscopy. Reviewed, dictated and finalized at location F. [employer] IMPRESSION: 1. Patchy airspace opacities of the lungs, likely pneumonia. 2. Marked enlargement of the pancreatic duct, atrophy of the pancreas, and poss ible mass in the tail of the pancreas. Further evaluation by MRCP is recommende d. 3. Wall thickening of the stomach near the gastroesophageal junction which coul d reflect gastritis or possibly malignancy. Consider endoscopy.
[2023-04-27 13:16] LABS: Estimated Glomerular Filt Rate 60
== END ==
PROVIDERS: PCP Family Medicine; Visit Provider Family Medicine
DX: R63.4 Abnormal weight loss (principal); R91.8 Other nonspecific abnormal finding of lung field
CPT/HCPCS: 71260; 74177; Q9967

== ENCOUNTER 2023-05-02 14:22 | Outpatient (CLI) | payer MEDICARE, SELFPAY ==
[2023-05-02 15:03] LABS: Hematocrit 45.4 % (37.0-47.0); Hemoglobin 13.8 g/dL (12.0-15.0); Mean Corpuscular HGB Conc 30.4 g/dl (32-36); Mean Corpuscular Hemoglobin 29.2 pg (26-34); Mean Platelet Volume 11.2 fl (7.4-10.4); Platelet Count Result 185 k/mm3 (150-375); Red Blood Count 4.73 M/mm3 (4.2-5.4); Red Cell Distribution Width 14.6 % (11.5-14.5); White Blood Count 4.6 K/mm3 (4.5-10.0)
[2023-05-02 15:13] LABS: Alanine Aminotransferase 22 U/L (6-35); Albumin Level 4.5 g/dL (3.5-5.1); Alkaline Phosphatase 75 U/L (38-126); Anion Gap 8 mmol/L (8-16); Aspartate Amino Transferase 27 U/L (14-36); Bilirubin,Total 0.8 mg/dL (0.2-1.3); Blood Urea Nitrogen 15 mg/dL (7-17); Calcium 9.5 mg/dL (8.4-10.2); Carbon Dioxide 28 mmol/L (22-30); Chloride 103 mmol/L (98-107); Estimated Glomerular Filt Rate > 60; Glucose 96 mg/dL (65-110); Potassium 4.4 mmol/L (3.4-5.0); Sodium 139 mmol/L (137-145)
== END 2023-05-02 14:23 | disposition home or self-care (01) ==
PROVIDERS: PCP Family Medicine; Visit Provider Nurse Practitioner
DX: R63.4 Abnormal weight loss (principal); K86.9 Disease of pancreas, unspecified; K86.89 Other specified diseases of pancreas; K52.9 Noninfective gastroenteritis and colitis, unspecified
CPT/HCPCS: 36415; 80053; 85027

== ENCOUNTER 2023-05-03 09:41 | Outpatient (NON) | payer MEDICARE, SELFPAY ==
[2023-05-10 20:11] LABS: Calprotectin, Stool 13 mcg/g; Pancreatic Elastase, Stool 389 mcg/g
== END 2023-05-03 09:42 | disposition home or self-care (01) ==
LOC: ANHLAB 09:42
PROVIDERS: PCP Family Medicine; Visit Provider Nurse Practitioner
DX: K52.9 Noninfective gastroenteritis and colitis, unspecified (principal); R63.4 Abnormal weight loss; K86.89 Other specified diseases of pancreas
CPT/HCPCS: 82653; 83993; 87045; 87177; 87209; 87269; 87427; 87449; 87493

== ENCOUNTER 2023-06-24 09:01 | Outpatient (CLI) | payer MEDICARE, SELFPAY ==
--- NOTE | ~2023-06-24 | DEXA_ITS ---
Bone Density Report Name: KERLINE OTERO Age: 82 Sex: Female Ethnicity: White Date of : 1940 Indication: postmenopausal; screening for osteoporosis; parental hip fracture; height loss; Referring Provider: DL JUNIOR Study: Bone densitometry was performed. Exam Date: June 24, 2023 Accession number: [id number] Bone Density: Region BMD T-score Z-score Classification AP Spine(L1-L4) 0.897 -1.4 1.5 Osteopenia Femoral Neck (Left) 0.646 -1.8 0.6 Osteopenia Total Hip (Left) 0.783 -1.3 1.0 Osteopenia Femoral Neck (Right) 0.587 -2.4 0.1 Osteopenia Total Hip (Right) 0.714 -1.9 0.4 Osteopenia Total Hip Mean 0.748 -1.6 0.7 Osteopenia World Health Organization criteria for BMD impression classify patients as: Normal (T-score at or above -1.0), Osteopenia (T-score between -1.0 and -2.5), or Osteoporosis (T-score at or below -2.5). 10-year Fracture Risk(1): Major Osteoporotic Fracture 27% Hip Fracture 20% Reported Risk Factors: [place] (), Neck BMD=0.587, BMI=17.6, parental fracture (1) FRAX(R) Version 3.08. Fracture probability calculated for an untreated patient. Fracture probability may be lower if the patient has received treatment. Clinical Information Provided by Patient: Parent has had a hip fracture Patient maximum height was 68.0 Menopause Age: 47 No regular weight bearing exercise Drinks caffeinated beverages Onset of menses at age 11 Number of children 1 Impression: The patient has low bone mass, based on the Right Femoral Neck T-score. The patient has an estimated ten-year risk of hip fracture of 20% and an estimated ten-year risk of major fracture of 27%, based on the WHO FRAX algorithm. The patient has risk factors, including: parental hip fracture. Discussion: BONE DENSITY IS LOW AT ONE OR MORE SKELETAL SITES. THE PATIENT'S BMD AND CLINICAL RISK FACTORS CONTRIBUTE TO THIS PATIENT'S HIGH RISK OF FRACTURE. This patient's lowest T-score is low at one or more skeletal sites. It meets the World Health Organization's (WHO) criteria for ?low bone mass? (T-score between -1.0 and -2.5). The patient's 10-year risk of hip fracture and 10 year risk of a major osteoporotic fracture as calculated by FRAX exceeds the threshold where pharmacological therapy is recommended by the National Osteoporosis Foundation (NOF). However, all treatment decisions require clinical judgment and consideration of individual patient factors, including patient preferences, comorbidities, previous drug use, risk factors not captured in the FRAX model (e.g., frailty, falls, vitamin D deficiency, increased bone turnover, interval significant decline in bone density) and possible under or overestimation of fracture risk by FRAX. The patient should follow a healthful lifestyle (good nutrit
== END 2023-06-24 09:02 | disposition home or self-care (01) ==
PROVIDERS: PCP Family Medicine; Visit Provider Nurse Practitioner Family
DX: M85.89 Other specified disorders of bone density and structure, multiple sites (principal); Z78.0 Asymptomatic menopausal state
CPT/HCPCS: 77080

== ENCOUNTER 2023-07-31 12:08 | Inpatient (IN) | payer MEDICARE, SELFPAY ==
--- NOTE | ~2023-07-31 | XR_ITS ---
XR hip RT 2V w AP pelvis 07/31/2023 13:46 Indication: Right hip pain Procedure: 3 views right hip Comparison: No prior studies for comparison. Findings: There is a nondisplaced right femoral subcapital fracture. Pelvic rings are intact. No soft tissue abnormality. No foreign bodies. Impression: 1: Nondisplaced subcapital fracture of the right femur. Reviewed, dictated and finalized at location A. GN INTERN Impression: 1: Nondisplaced subcapital fracture of the right femur.
--- NOTE | ~2023-07-31 | XR_ITS ---
XR elbow RT min 3V 07/31/2023 13:46 INDICATION: Right elbow pain after injury. PROCEDURE: 3 nonstandard views of the right elbow. No true lateral view performed. COMPARISON: No prior studies for comparison. FINDINGS: Fracture, dislocation or subluxation is not identified. The soft tissues appear within norm al limits. No foreign bodies are identified. IMPRESSION: 1: NO ACUTE BONE OR JOINT ABNORMALITY IDENTIFIED. Reviewed, dictated and finalized at location A. GER RISK
--- NOTE | ~2023-07-31 | XR_ITS ---
EXAMINATION: XR chest 1V portable Exam Date/Time: 07/31/2023 14:40 [employer] AND [employer]ICE [employer] WORKERS HISTORY: Fall/injury. Subcapital right femur fracture. History of breast cancer. Comparison: 05/15/2022; x-ray elbow and hip, same date; CT cap 04/27/2023. RESULT: Lines, tubes, and devices: Right breast surgical clips. Lungs and pleura: Senescent changes. Biapical pleural scarring. Granulomatous calcification. Cardiomediastinal silhouette: Stable. Other: No acute osseous or upper abdominal finding. IMPRESSION: No acute cardiopulmonary process. Reviewed, dictated and finalized at location K. ICAL AND OFFICE SUPPORT WORKERS
--- NOTE | ~2023-07-31 | XR_ITS ---
EXAMINATION: XR surgery orthopedic DATE: 08/02/2023 08:47 INDICATION: Subcapital fracture of proximal right femur. TECHNIQUE: 6 intraoperative fluoroscopic views of right hip were obtained. I was not present. Fluoros copy exposure time was 130 seconds. COMPARISON: Pelvis and right hip radiographs 07/31/2023 FINDINGS: There is a subcapital fracture of right femoral neck. The distal fracture fragment demonstr ates impaction and medial displacement. Internal fixation is seen with 3 lag screws. IMPRESSION: 1. Subcapital fracture of right femoral neck status post internal fixation. Reviewed, dictated and finalized at location A. EGEE OPERATOR
[2023-07-31 11:59] VITALS: BP 197/93; PULSE 73; RESP 16; TEMP 36.5; O2SAT 100
--- NOTE | 2023-07-31 13:02 | ED.FALL ---
HPI - Fall General Chief Complaint: Fall Stated Complaint: fall - hip pain History of Present Illness HPI Narrative: 82-year-old with history of dementia presenting to the emergency department for evaluation of right elbow injury and right hip injury after a ground level fall. Patient was leaning in the car when she got dizzy and after getting in the car she ultimately had a fall landing on her right elbow and right hip. Patient denies striking her head denies any loss consciousness. After the fall patient was unable to ambulate. Related Data Home Medications Medication Instructions Recorded Confirmed cholecalciferol (vitamin D3) 50 50 mcg PO DAILY 07/05/19 07/31/23 mcg (2,000 unit) capsule latanoprost 0.005 % eye drops 1 drop ophthalmic (eye) DAILY 07/05/19 07/31/23 memantine 10 mg tablet 10 mg PO BID 01/16/21 07/31/23 clobetasol 0.05 % scalp solution 1 applic topical DAILY 01/25/22 07/31/23 estradiol 0.01% (0.1 mg/gram) 1 g vaginal 2XW 01/25/22 07/31/23 vaginal cream donepezil 10 mg tablet 5 mg PO QHS 04/11/23 07/31/23 timolol 0.5 % eye drops 1 drp EACH EYE DAILY 06/14/23 07/31/23 Allergies Allergy/AdvReac Type Severity Reaction Status Date / Time Penicillins Allergy Mild HIVES Verified 06/16/23 13:55 Review of Systems Review of Systems: All systems reviewed & are unremarkable except as noted in HPI and below PMFSH Past Medical History Medical History (Updated 07/31/23 @ 19:12 by Nathan Garcia MD) Cancer of right breast (12/2002) Status post lumpectomy and radiation therapy. Chronic diarrhea Chronic venous insufficiency of lower extremity Colon polyps Dementia Dyslipidemia Glaucoma Hypothyroidism (acquired) Intraductal papillary mucinous neoplasm Irritable bowel syndrome Osteopenia after menopause Pancreatic atrophy Prediabetes Vesicular eczema of hands and feet Vitamin D deficiency Surgical History Surgical History (Updated 07/31/23 @ 16:52 by Renea Machado PA-C) History of appendectomy (1951) History of bilateral cataract extraction (06/2017) History of lumpectomy of right breast (2002) History of sacrocolpopexy (2016) History of total hysterectomy (1997) Family History Family History (Updated 07/31/23 @ 16:54 by Renea Machado PA-C) Other Hypertension Social History Social History (Updated 07/31/23 @ 16:55 by Renea Machado PA-C) Social History: Surrogate medical decision maker: Zack Clemens, son. Code status: Full code. Smoking status: Never smoker Second hand tobacco smoke exposure: No Alcohol intake: never Substance use: never Substance use type: does not use Do You Feel Safe in your Home?: Yes Lack of Transportation: No Lack of Food: Never True Current Housing: I Have Housing Concerned About Future Housing: No Difficulty Paying Gas/Electric Bills: No Difficulty Paying for Meds: No Currently Unemployed: No Education: Master's Degree or Higher Difficulty w/ Childcare or Family Care: No Living arrangements: with family Additional living arrangements comments: Lives with spouse in independent living at [facility]. Occupation/Education: retired Spiritual care concerns: No Exam Narrative: APPEARANCE: Well appearing, no pain, no distress, well-nourished. HEAD: normocephalic, atraumatic. EYES: PERRLA/EOMI, conjunctivae clear. NOSE: Normal no drainage EARS:TMS clear with good light reflex. THROAT: Pharynx clear, no exudate. NECK: Supple. No adenopathy, no masses. RESPIRATORY: Airway patent, respirations nonlabored. Clear to auscultation bilaterally, no rales, rhonchi, wheezing. CARDIOVASCULAR: Regular rate and rhythm without murmurs rubs or gallops. ABDOMINAL: Soft, nontender, nondistended, normal bowel sounds MUSCULOSKELETAL: Tenderness to right hip NEURO: Alert. Cranial nerves II through XII intact. Grossly intact SKIN: Abrasion to right elbow Course Course Emergency Course: Patient was admitted for
[2023-07-31] MEDS: fentaNYL CITRATE INJ (*CRX) 100 MCG/2 ML VIAL 50 MCG IV PUSH ×2 (13:20→17:32)
[2023-07-31 13:25] VITALS: BP 179/90; PULSE 70; RESP 18; O2SAT 95
[2023-07-31 13:39] LABS: Basophils Percent Auto 0.4 % (0.2-1.2); Eosinophils Percent Auto 0.4 % (0-4.4); Hematocrit 42.5 % (37.0-47.0); Hemoglobin 13.5 g/dL (12.0-15.0); Immature Granulocyte Absolute 0.03 K/mm3 (0.00-0.031); Immature Granulocyte Percent A 0.4 % (0-0.5); Lymphocytes Absolute Auto 0.59 K/mm3 (0.9-3.2); Mean Corpuscular HGB Conc 31.8 g/dl (32-36); Mean Corpuscular Volume 94.4 fl (80-100); Mean Platelet Volume 10.8 fl (7.4-10.4); Monocytes Absolute Auto 0.5 K/mm3 (0.1-0.6); Monocytes Percent Auto 6.6 % (2.6-8.5); Neutrophils Absolute Auto 6.2 K/mm3 (1.3-6.7); Neutrophils Percent Auto 84.2 % (45.5-73.1); Platelet Count Result 167 k/mm3 (150-375); Red Cell Distribution Width 13.2 % (11.5-14.5); White Blood Count 7.4 K/mm3 (4.5-10.0)
[2023-07-31 13:49] LABS: Prothrombin Time 13.4 Seconds (11.1-14.7)
[2023-07-31 13:50] LABS: Alanine Aminotransferase 25 U/L (6-35); Albumin Level 4.2 g/dL (3.5-5.1); Alkaline Phosphatase 91 U/L (38-126); Anion Gap 3 mmol/L (8-16); Aspartate Amino Transferase 27 U/L (14-36); Bilirubin,Total 0.7 mg/dL (0.2-1.3); Blood Urea Nitrogen 18 mg/dL (7-17); Calcium 9.3 mg/dL (8.4-10.2); Carbon Dioxide 32 mmol/L (22-30); Chloride 103 mmol/L (98-107); Estimated CRCL calculation 45 ml/min; Estimated Glomerular Filt Rate > 60; Glucose 105 mg/dL (65-110); Partial Thromboplastin Time 28.1 SECONDS (22.3-36.8); Potassium 3.5 mmol/L (3.4-5.0); Sodium 138 mmol/L (137-145)
[2023-07-31 14:43] VITALS: BP 179/78; PULSE 76; RESP 18; O2SAT 95
--- NOTE | 2023-07-31 15:13 | PC.NURSE ---
Report given to Petty BECKHAM, all questions answered
[2023-07-31 16:15] VITALS: BMI 18.8
--- NOTE | 2023-07-31 16:15 | ADMGEN ---
This patient, Carmina Clemens, was admitted to [facility] Surg Room 317-02 @ 1615. Patient/family oriented to hospital policies and general routines including ID bracelet, bed and alarms, visiting hours, pain management, procedures, bathroom and other care routines, personal items, smoking policy, room service/diet, and visiting hours. Information on how to activate the Rapid Response Team has been discussed. Patient/Family are encouraged to report perceived risks to care and to ask questions if they do not understand what they are told or what they should do.
[2023-07-31 16:44] VITALS: BP 192/89; PULSE 76; RESP 20; TEMP 36.9; O2SAT 95; BMI 18.8
--- NOTE | 2023-07-31 16:48 | PM.IMHP ---
H&P: HPI History of Present Illness Date/Time: 07/31/23 17:25 Chief Complaint: Right hip pain after fall. Narrative: This is a pleasant 82-year-old female with dementia, dyslipidemia, hypothyroidism, pancreatic insufficiency, irritable bowel syndrome with diarrhea, and history of breast cancer who presented to the emergency department via EMS for evaluation of right hip pain after fall. The patient provides the following history. She felt fine when she got up this morning and went to mormonism. When they returned home and she was attempting to get out of the car, she bent over to pick something up at which time she felt a little dizzy and this caused her to lose her balance and fall to the ground onto her right side. She had immediate pain in her right hip and was unable to get herself up. Imaging in the ED showed a nondisplaced subcapital fracture of the right femur and she is being admitted in this setting for pain control and orthopedic consultation. She denies head trauma and loss of consciousness in the fall and she denies other injuries although she did sustain a skin tear of the right elbow. No syncope or near syncope. She denies paresthesias, skin color, and temperature changes distal to the fracture site. Review of Systems Review of Systems: Twelve systems were reviewed. She has frequent loose stools which is unchanged. She denies exertional chest pain, pleuritic pain, palpitations, and shortness of breath. No nausea or vomiting. No dysuria. Except as documented, all other systems were reviewed and are negative. [facility] Past Medical History Medical History Cancer of right breast (12/2002) Status post lumpectomy and radiation therapy. Chronic diarrhea Chronic venous insufficiency of lower extremity Colon polyps Dementia Dyslipidemia Glaucoma Hypothyroidism (acquired) Intraductal papillary mucinous neoplasm Irritable bowel syndrome Osteopenia after menopause Pancreatic atrophy Prediabetes Vesicular eczema of hands and feet Vitamin D deficiency Surgical History Surgical History History of appendectomy (1951) History of bilateral cataract extraction (06/2017) History of lumpectomy of right breast (2002) History of sacrocolpopexy (2016) History of total hysterectomy (1997) Family History Family History Other Hypertension Social History Social History Social History: Surrogate medical decision maker: Zack Clemens, son. Code status: Full code. Smoking status: Never smoker Second hand tobacco smoke exposure: No Alcohol intake: never Substance use: never Substance use type: does not use Do You Feel Safe in your Home?: Yes Lack of Transportation: No Lack of Food: Never True Current Housing: I Have Housing Concerned About Future Housing: No Difficulty Paying Gas/Electric Bills: No Difficulty Paying for Meds: No Currently Unemployed: No Education: Master's Degree or Higher Difficulty w/ Childcare or Family Care: No Living arrangements: with family Additional living arrangements comments: Lives with spouse in independent living at [facility]. Occupation/Education: retired Spiritual care concerns: No Meds Home Medications and Allergies Home Medications Medication Instructions Recorded Confirmed Type cholecalciferol (vitamin D3) 50 50 mcg PO DAILY 07/05/19 07/31/23 History mcg (2,000 unit) capsule latanoprost 0.005 % eye drops 1 drop ophthalmic (eye) DAILY 07/05/19 07/31/23 History memantine 10 mg tablet 10 mg PO BID 01/16/21 07/31/23 History clobetasol 0.05 % scalp solution 1 applic topical DAILY 01/25/22 07/31/23 History estradiol 0.01% (0.1 mg/gram) 1 g vaginal 2XW 01/25/22 07/31/23 History vaginal cream loratadine 10 mg tablet (Clar
[2023-07-31] MEDS: traMADol HCL (*CRX) 25 MG TABLET PO (18:30)
[2023-07-31 20:00] VITALS: BP 158/73; PULSE 82; RESP 18; TEMP 37.1; O2SAT 93
[2023-07-31] MEDS: AZELASTINE HCL NASAL 0.1% 137 MCG/SPR 30 ML BTL 1 SPRAY NASAL (23:53)
[2023-07-31] MEDS: ATORVASTATIN 10 MG TABLET PO (23:54)
[2023-07-31] MEDS: DONEPEZIL HCL 5 MG TABLET PO (23:54)
[2023-08-01 05:58] VITALS: BP 171/77; PULSE 87; RESP 16; TEMP 36.8; O2SAT 94
[2023-08-01 06:46] LABS: Hematocrit 40.8 % (37.0-47.0); Hemoglobin 13.3 g/dL (12.0-15.0); Mean Corpuscular HGB Conc 32.6 g/dl (32-36); Mean Corpuscular Hemoglobin 30.2 pg (26-34); Mean Corpuscular Volume 92.7 fl (80-100); Mean Platelet Volume 11.5 fl (7.4-10.4); Platelet Count Result 161 k/mm3 (150-375); Red Cell Distribution Width 13.1 % (11.5-14.5); White Blood Count 8.3 K/mm3 (4.5-10.0)
[2023-08-01 07:00] LABS: Anion Gap 5 mmol/L (8-16); Blood Urea Nitrogen 16 mg/dL (7-17); Calcium 9.2 mg/dL (8.4-10.2); Carbon Dioxide 27 mmol/L (22-30); Chloride 101 mmol/L (98-107); Estimated CRCL calculation 45 ml/min; Estimated Glomerular Filt Rate > 60; Glucose 156 mg/dL (65-110); Potassium 3.5 mmol/L (3.4-5.0); Sodium 133 mmol/L (137-145)
[2023-08-01 08:00] VITALS: O2SAT 94
--- NOTE | 2023-08-01 08:11 | PM.CNOR ---
Assessment and Plan Assessment and plan (1) Subcapital fracture of right hip: Qualifiers: Encounter type: initial encounter Fracture type: closed Qualified Code(s): S72.011A - Unspecified intracapsular fracture of right femur, initial encounter for closed fracture Code(s): S72.011A - Unspecified intracapsular fracture of right femur, initial encounter for closed fracture Status: Acute Plan Nondisplaced valgus and slightly impacted fracture of the femoral neck. Will benefit from percutaneous pin fixation. Risks, benefits, and alternatives discussed. Plan for surgery tomorrow morning. Will be partial weight-bearing with a walker for 1 month. May need short-stay rehab. Proceed with percutaneous pinning right hip femoral neck fracture. We discussed the risks, benefits, and alternatives to surgery. History of Present Illness HPI Consult date: 08/01/23 Chief complaint: Right femur fracture Narrative: Patient complains of acute right hip pain. Fell from standing height. Admitted through the emergency room for definitive managemnet. No previous hip pain. Comfortable at rest. No numbness, tingling, or other associated symptoms. Lives in assisted living with her . Review of Systems Review of Systems: Denies loss of consciousness. All systems reviewed & are unremarkable except as noted in HPI and below PMFSH Past Medical History Medical History Cancer of right breast (12/2002) Status post lumpectomy and radiation therapy. Chronic diarrhea Chronic venous insufficiency of lower extremity Colon polyps Dementia Dyslipidemia Glaucoma Hypothyroidism (acquired) Intraductal papillary mucinous neoplasm Irritable bowel syndrome Osteopenia after menopause Pancreatic atrophy Prediabetes Vesicular eczema of hands and feet Vitamin D deficiency Surgical History Surgical History History of appendectomy (1951) History of bilateral cataract extraction (06/2017) History of lumpectomy of right breast (2002) History of sacrocolpopexy (2016) History of total hysterectomy (1997) Family History Family History Other Hypertension Social History Social History Social History: Surrogate medical decision maker: Zack Clemens, son. Code status: Full code. Smoking status: Never smoker Second hand tobacco smoke exposure: No Alcohol intake: never Substance use: never Substance use type: does not use Do You Feel Safe in your Home?: Yes Lack of Transportation: No Lack of Food: Never True Current Housing: I Have Housing Concerned About Future Housing: No Difficulty Paying Gas/Electric Bills: No Difficulty Paying for Meds: No Currently Unemployed: No Education: Master's Degree or Higher Difficulty w/ Childcare or Family Care: No Living arrangements: with family Additional living arrangements comments: Lives with spouse in independent living at [facility]. Occupation/Education: retired Spiritual care concerns: No Meds Home Medications and Allergies Home Medications Medication Instructions Recorded Confirmed Type cholecalciferol (vitamin D3) 50 50 mcg PO DAILY 07/05/19 07/31/23 History mcg (2,000 unit) capsule latanoprost 0.005 % eye drops 1 drop ophthalmic (eye) DAILY 07/05/19 07/31/23 History memantine 10 mg tablet 10 mg PO BID 01/16/21 07/31/23 History clobetasol 0.05 % scalp solution 1 applic topical DAILY 01/25/22 07/31/23 History estradiol 0.01% (0.1 mg/gram) 1 g vaginal 2XW 01/25/22 07/31/23 History vaginal cream loratadine 10 mg tablet (Claritin) 10 mg PO DAILY #90 tabs 07/12/22 07/31/23 Rx fluticasone propionate 50 2 spray intranasal DAILY #48 grams 07/21/22 07/31/23 Rx mcg/actuation nasal spray,suspension (A
[2023-08-01 08:58] VITALS: O2SAT 94
[2023-08-01] MEDS: ACETAMINOPHEN 325 MG TABLET 650 MG PO (10:11)
[2023-08-01] MEDS: AZELASTINE HCL NASAL 0.1% 137 MCG/SPR 30 ML BTL 1 SPRAY NASAL ×2 (10:15→20:49)
[2023-08-01] MEDS: FLUTICASONE PROPIONATE 0.05% NA SPR 16 GM BTL (*BKC) 2 SPRAY NASAL (10:16)
[2023-08-01] MEDS: CHOLECALCIFEROL 1,000 UNITS TABLET 2000 UNITS PO (10:18)
[2023-08-01] MEDS: LIPASE/AMYLASE/PROTEASE 12,000 UNITS CAP 2 CAP PO ×2 (10:18→17:01)
[2023-08-01] MEDS: MEMANTINE 10 MG TABLET PO ×2 (10:19→17:01)
[2023-08-01] MEDS: LORATADINE 10 MG TABLET PO (10:19)
[2023-08-01] MEDS: LATANOPROST 0.005% OP SOLN 2.5 ML BTL 1 DROP EACH EYE (10:26)
[2023-08-01] MEDS: TIMOLOL MALEATE 0.5% OP SOLN 5 ML BOTTLE 1 DROP EACH EYE (10:26)
[2023-08-01] MEDS: CLOBETASOL PROPIONATE 0.05% CREAM 15 GM 1 APPLIC TOPICAL (10:30)
[2023-08-01 14:00] VITALS: BP 150/77; PULSE 69; RESP 16; TEMP 37.3; O2SAT 96
--- NOTE | 2023-08-01 16:59 | ECG_ITS ---
Measurements Intervals [place] Rate: 75 P: 59 SC: 153 QRS: 19 QRSD: 88 T: 78 QT: 394 QTc: 441 Interpretive Statements SINUS RHYTHM POOR R-WAVE PROGRESSION LOW VOLTAGE IN THE LIMB LEADS BORDERLINE ECG NO PREVIOUS ECG AVAILABLE FOR COMPARISON Electronically Signed On 08-01-2023 18:22:23 ECONOMIC DEVELOPER by Neftali Cherry M.D.
--- NOTE | 2023-08-01 17:54 | PM.IMPN ---
Progress Note: A&P Assessment and Plan (1) Dyslipidemia: Code(s): E78.5 - Hyperlipidemia, unspecified Status: Acute (2) Hypothyroidism (acquired): Code(s): E03.9 - Hypothyroidism, unspecified Status: Acute (3) Subcapital fracture of right hip: Qualifiers: Encounter type: initial encounter Fracture type: closed Qualified Code(s): S72.011A - Unspecified intracapsular fracture of right femur, initial encounter for closed fracture Code(s): S72.011A - Unspecified intracapsular fracture of right femur, initial encounter for closed fracture Status: Acute (4) Elevated blood pressure reading: Code(s): R03.0 - Elevated blood-pressure reading, without diagnosis of hypertension Status: Acute Plan Blood pressures have come down a bit. Continue to monitor and give good pain control. NPO at midnight for pinning of right hip with Orthopedic surgery. EKG reviewed. SCDs. NPO overnight. Full code. Subjective Date/time seen: 08/01/23 17:54 Interval history: No acute overnight events. The patient has no pain while resting in bed. Denies any other complaints. Review of Systems Review of Systems: All systems reviewed & are unremarkable except as noted in HPI and below (Subjective) Exam Const: General: comfortable and no acute distress Eyes: Pupils: Equal, round and reactive pupils present Neck: Neck: supple Resp: Effort & Inspection: normal respiratory effort Auscultation: clear to auscultation bilaterally Cardio: Rate: regular rate Rhythm: regular rhythm GI: GI Palp: Yes Soft to palpation and No Tenderness to palpation present (GI) Neuro: Other: Good motor strength in all 4 extremities otherwise limited by pain on the right lower extremity. Neurovascularly intact. Extrem: General: no edema Objective Data Vital Signs Vital Signs: Vital Signs - 24 hr 07/31/23 20:00 08/01/23 05:58 08/01/23 08:58 Temperature 98.8 F 98.3 F Pulse Rate 82 87 Respiratory Rate 18 16 Blood Pressure 158/73 H 171/77 H Pulse Oximetry 93 94 94 Oxygen Delivery Room Air 08/01/23 08:00 08/01/23 14:00 Temperature 99.1 F Pulse Rate 69 Respiratory Rate 16 Blood Pressure 150/77 H Pulse Oximetry 94 96 Oxygen Delivery Room Air Intake/Output Intake/Output: Intake & Output 07/29/23 07/30/23 07/31/23 08/01/23 23:59 23:59 23:59 23:59 Intake Total 240 Output Total 500 Balance -260 Meds/Results Medications: Active Medications Generic Name Dose Route Start Last Admin Trade Name Freq PRN Reason Stop Dose Admin Acetaminophen 650 mg 07/31/23 16:59 08/01/23 10:11 Acetaminophen 325 Mg Tablet PO 650 mg Q6H PRN Administration Mild Pain (1-3) or Fever Lipase/Protease/Amylase 2 cap 08/01/23 08:00 08/01/23 17:01 Lipase/Amylase/Protease 12,000 Units Cap PO 2 cap TIDWM JUNITO Administration Atorvastatin Calcium 10 mg 07/31/23 22:50 07/31/23 23:54 Atorvastatin 10 Mg Tablet PO 10 mg QHS JUNITO Administration Azelastine HCl 1 spray 07/31/23 22:50 08/01/23 10:15 Azelastine Hcl Nasal 0.1% 137 Mcg/Spr 30 Ml Btl NASAL 1 spray Q12HR JUNITO Administration Clobetasol Propionate 1 applic 08/01/23 09:00 08/01/23 10:30 Clobetasol Propionate 0.05% Cream 15 Gm TOPICAL 1 applic DAILY JUNITO Administration Donepezil HCl 5 mg 07/31/23 22:55 07/31/23 23:54 Donepezil Hcl 5 Mg Tablet PO 5 mg QHS JUNITO Administration Fentanyl Citrate 50 mcg 07/31/23 14:38 07/31/23 17:32 Fentanyl Citrate Inj (*Crx) 100 Mcg/2 Ml Vial IV PUSH 50 mcg Q2H PRN Administration Pain Rated 7-10 Fluticasone Propionate 2 spray 08/01/23 09:00 08/01/23 10:16 Fluticasone Propionate 0.05% Na Spr 16 Gm Btl (*Bkc) NASAL 2 spray DAILY JUNITO Administration Latanoprost 1 drop 08/01/23 09:00 08/01/23 10:26 Latanoprost 0.005% Op Soln 2.5 Ml Btl EACH EYE 1 drop DAILY JUNITO Administration Levothyroxine
[2023-08-01 19:00] VITALS: BP 177/87; PULSE 87; RESP 16; TEMP 36.8; O2SAT 91
[2023-08-01] MEDS: traMADol HCL (*CRX) 25 MG TABLET PO (20:46)
[2023-08-01] MEDS: ATORVASTATIN 10 MG TABLET PO (20:47)
[2023-08-01] MEDS: DONEPEZIL HCL 5 MG TABLET PO (20:47)
[2023-08-02] VITALS (13 sets, daily range): BP systolic 124–166; BP diastolic 65–81; PULSE 60–88; RESP 14–18; TEMP 36.2–37.8; O2SAT 90–100
[2023-08-02] MEDS: LACTATED RINGERS 1,000 ML 30 ML IV CONT (06:19)
[2023-08-02 06:23] LABS: Hematocrit 44.7 % (37.0-47.0); Hemoglobin 14.4 g/dL (12.0-15.0); Mean Corpuscular HGB Conc 32.2 g/dl (32-36); Mean Corpuscular Hemoglobin 29.8 pg (26-34); Mean Corpuscular Volume 92.5 fl (80-100); Mean Platelet Volume 11.2 fl (7.4-10.4); Platelet Count Result 154 k/mm3 (150-375); Red Blood Count 4.83 M/mm3 (4.2-5.4); Red Cell Distribution Width 12.9 % (11.5-14.5); White Blood Count 8.2 K/mm3 (4.5-10.0)
[2023-08-02 06:33] LABS: Anion Gap 6 mmol/L (8-16); Blood Urea Nitrogen 16 mg/dL (7-17); Calcium 9.1 mg/dL (8.4-10.2); Carbon Dioxide 27 mmol/L (22-30); Chloride 101 mmol/L (98-107); Estimated CRCL calculation 52 ml/min; Estimated Glomerular Filt Rate > 60; Glucose 160 mg/dL (65-110); Magnesium 2.2 mg/dL (1.6-2.3); Potassium 3.5 mmol/L (3.4-5.0); Sodium 134 mmol/L (137-145)
[2023-08-02] MEDS: KETOROLAC 15 MG/ML VIAL (*BKC) IV PUSH (07:20)
--- NOTE | 2023-08-02 07:20 | WPDANESEPPF ---
Anes - Initial Pre Proc Eval Procedure: Operation Date: 08/02/23 07:30 Proposed Procedures p Right Hip Pinning - Calixto Saenz MD Date/Time: 08/02/23 07:20 Surgeon: Jake Jimenez MD Pre Op Diagnosis: Right femur fracture Patient Data Age: 82 Gender: F Height: 1.7 m Weight: 54.5 kg Last Vital Signs Temp 37.8 C H 08/02/23 06:19 Pulse 88 08/02/23 06:19 Resp 16 08/02/23 06:19 BP 166/81 H 08/02/23 06:19 Pulse Ox 90 08/02/23 06:19 O2 Del Method Room Air 08/02/23 06:19 Allergies Allergy/AdvReac Type Severity Reaction Status Date / Time Penicillins Allergy Mild HIVES Verified 08/02/23 06:39 Home Medications Medication Instructions Recorded Confirmed Type cholecalciferol (vitamin D3) 50 50 mcg PO DAILY 07/05/19 07/31/23 History mcg (2,000 unit) capsule latanoprost 0.005 % eye drops 1 drop ophthalmic (eye) DAILY 07/05/19 07/31/23 History memantine 10 mg tablet 10 mg PO BID 01/16/21 07/31/23 History clobetasol 0.05 % scalp solution 1 applic topical DAILY 01/25/22 07/31/23 History estradiol 0.01% (0.1 mg/gram) 1 g vaginal 2XW 01/25/22 07/31/23 History vaginal cream loratadine 10 mg tablet (Claritin) 10 mg PO DAILY #90 tabs 07/12/22 07/31/23 Rx fluticasone propionate 50 2 spray intranasal DAILY #48 grams 07/21/22 07/31/23 Rx mcg/actuation nasal spray,suspension (Allergy Relief (fluticasone)) azelastine 137 mcg (0.1 %) nasal 1 spray intranasal Q12H #30 mL 10/25/22 07/31/23 Rx spray aerosol atorvastatin 10 mg tablet 10 mg PO QHS #90 tabs 03/04/23 07/31/23 Rx levothyroxine 50 mcg tablet 50 mcg PO DAILY #90 tabs 03/10/23 07/31/23 Rx donepezil 10 mg tablet 5 mg PO QHS 04/11/23 07/31/23 History psyllium husk (with sugar) 3.4 1 tbsp PO DAILY #575 grams 04/11/23 07/31/23 Rx gram/12 gram oral powder (Metamucil (with sugar)) timolol 0.5 % eye drops 1 drp EACH EYE DAILY 06/14/23 07/31/23 History [id number] 1 cap PO TID 30 days #90 caps 06/16/23 07/31/23 Rx 24,000-76,000-120,000 unit capsule,delayed rel (Creon) Laboratory Tests 08/02/23 05:55 WBC 8.2 K/mm3 (4.5-10.0) RBC 4.83 M/mm3 (4.2-5.4) Hgb 14.4 g/dL (12.0-15.0) Hct 44.7 % (37.0-47.0) MCV 92.5 fl (80-100) MCH 29.8 pg (26-34) MCHC 32.2 g/dl (32-36) RDW 12.9 % (11.5-14.5) Plt Count 154 k/mm3 (150-375) MPV 11.2 H fl (7.4-10.4) Sodium 134 L mmol/L (137-145) Potassium 3.5 mmol/L (3.4-5.0) Chloride 101 mmol/L (98-107) Carbon Dioxide 27 mmol/L (22-30) Anion Gap 6 L mmol/L (8-16) BUN 16 mg/dL (7-17) Creatinine 0.60 L mg/dL (0.7-1.0) Estim Creat Clear Calc 52 ml/min Estimated GFR > 60 (59 - ) Glucose 160 H mg/dL (65-110) Calcium 9.1 mg/dL (8.4-10.2) Magnesium 2.2 mg/dL (1.6-2.3) Patient hx anesthesia problems: none Family hx anesthesia problems: none Results Review: All pre-operative results and documents have been reviewed as part of the pre-operative evaluation. [facility] Past Medical History Medical History Cancer of right breast (12/2002) Status post lumpectomy and radiation therapy. Chronic diarrhea Chronic venous insufficiency of lower extremity Colon polyps Dementia Dyslipidemia Glaucoma Hypothyroidism (acquired) Intraductal papillary mucinous neoplasm Irritable bowel syndrome Osteopenia after menopause Pancreatic atrophy Prediabetes Vesicular eczema of hands and feet Vitamin D deficiency Surgical History Surgical History History of appendectomy (1951) History of bilateral cataract extraction (06/2017) History of lumpectomy of right breast (2002) History of sacrocolpopexy (2016) History of total hysterectomy (1997) Family History Family History Other Hyperte
--- NOTE | 2023-08-02 07:22 | WPDHPUPDATE1 ---
History and Physical Update Update Date/Time: 08/02/23 07:22 History and Physical has been reviewed, including an updated exam of the patient. There are NO changes in the patient's condition. Risks, benefits, and alternatives have been discussed and questions answered. Patient agrees to proceed with procedure.
[2023-08-02] MEDS: ceFAZolin 2 GM/D5W 50 ML 2 GM/50 ML BAG IVPB ×3 (07:29→22:39)
--- NOTE | 2023-08-02 07:37 | W.PM.PROC2 ---
Procedure Note - Detailed Date of Procedure 08/02/23 Pre-op Diagnosis Right hip femoral neck fracture Post-op Diagnosis Same Procedure Performed Closed reduction percutaneous pinning right hip femoral neck fracture Surgeon Calixto Saenz MD Mechanical Shovel Operator Jana Templeton PA-C Anesthesia General Indications Valgus impacted subcapital femoral neck fracture Findings Mild displacement noted with fluoroscopy compared to initial films. Closed reduction performed with gentle manipulation. Description of Procedure Preoperative antibiotics were given. The patient was brought to the operating room. In general anesthetic was administered. The patient was carefully placed on the fracture table. By planar fluoroscopy was used to confirm maintenance of reduction and treatment of reduction as necessary. The hip was prepped and draped in usual sterile fashion with a sterile curtain. The fracture was observed to have mildly displaced. Adduction and internal rotation combined with mild traction and then release of the traction reduced the fracture nicely. A stab incision was created at the inferior trochanter. The guide pin was placed into the center of the femoral neck inferiorly. Two additional guide pins were placed superiorly were inverted triangle shape. Measurements were taken and the outer cortex was drilled. Three partially-threaded cannulated screws were placed. The crease incisions were closed with interrupted 4-0 Monocryl suture followed by Steri-Strips. The sterile dressing was applied. The patient was transferred to the recovery room in stable condition and extubated. There were no complications. Physician office support assistant, Jana Templeton PA-C, required for surgery; including patient positioning on the fracture table, draping, wound closure, and dressing placement. Implants 7.3 Synthes partially threaded 16 mm cannulated screws x 3. Estimated Blood Loss 10 Drains No Packing No Pathology None sent Complications No immediate complications Condition Stable Disposition PACU [facility] Billing Surgery - Charge Forward: Surgery Billing
[2023-08-02] MEDS: BUPIVACAINE/EPINEPHRINE 0.5% 30 ML VIAL INFILTRATE (08:23)
--- NOTE | 2023-08-02 10:14 | PC.NURSE ---
Returned from OR per [ ]. Report received from [Shanda].
[2023-08-02] MEDS: SODIUM CHLORIDE 0.9% IV 1,000 ML 125 ML IV CONT (10:44)
[2023-08-02] MEDS: CLOBETASOL PROPIONATE 0.05% CREAM 15 GM 1 APPLIC TOPICAL (10:48)
[2023-08-02] MEDS: FLUTICASONE PROPIONATE 0.05% NA SPR 16 GM BTL (*BKC) 2 SPRAY NASAL (10:49)
[2023-08-02] MEDS: TIMOLOL MALEATE 0.5% OP SOLN 5 ML BOTTLE 1 DROP EACH EYE (10:50)
[2023-08-02] MEDS: LATANOPROST 0.005% OP SOLN 2.5 ML BTL 1 DROP EACH EYE (10:50)
[2023-08-02] MEDS: polyethylene glycoL 3350 17 GM POWD.PACK PO (10:55)
[2023-08-02] MEDS: SENNA/DOCUSATE SODIUM TABLET 2 TAB PO ×2 (10:55→16:36)
[2023-08-02] MEDS: FAMOTIDINE 20 MG TABLET PO ×2 (10:55→22:40)
[2023-08-02] MEDS: ENOXAPARIN 40 MG/0.4 ML SYRINGE SUB-Q (10:57)
[2023-08-02] MEDS: ACETAMINOPHEN 500 MG TABLET 1000 MG PO ×2 (12:02→17:00)
[2023-08-02] MEDS: LIPASE/AMYLASE/PROTEASE 12,000 UNITS CAP 2 CAP PO ×2 (12:02→16:37)
--- NOTE | 2023-08-02 16:11 | PM.IMPN ---
Progress Note: A&P Assessment and Plan (1) Subcapital fracture of right hip: Qualifiers: Encounter type: initial encounter Fracture type: closed Qualified Code(s): S72.011A - Unspecified intracapsular fracture of right femur, initial encounter for closed fracture Code(s): S72.011A - Unspecified intracapsular fracture of right femur, initial encounter for closed fracture Status: Acute Assessment and Plan: -Status post close reduction percutaneous pinning right hip valgus impacted subcapital femoral fracture on 08/02/2023. -mobility, therapy, DVT prophylaxis per surgery team. -patient lives at [facility] [place] with her . Care coordination arranging Dispo for her to return there with therapy. -remove Barrios catheter on 08/03 (2) Dyslipidemia: Code(s): E78.5 - Hyperlipidemia, unspecified Status: Acute Assessment and Plan: Continue atorvastatin (3) Hypothyroidism (acquired): Code(s): E03.9 - Hypothyroidism, unspecified Status: Acute Assessment and Plan: Continue levothyroxine (4) Elevated blood pressure reading: Code(s): R03.0 - Elevated blood-pressure reading, without diagnosis of hypertension Status: Acute Assessment and Plan: Controlled. Plan This is a pleasant 82-year-old female with a history of dementia, dyslipidemia, hypothyroidism, pancreatic insufficiency, irritable bowel syndrome with diarrhea, history of breast cancer presenting to [place] ER after right hip pain from a fall. She was found to have a subcapital fracture of the right femur. She was hypertensive on admission on 07/31/2023. FEN: Resume diet. Saline lock IV. GI prophylaxis: Not indicated DVT prophylaxis: Lovenox 40 mg q.day Lines: Peripheral IV, Barrios catheter Code Status: Full code Dispo: Stable Subjective Date/time seen: 08/02/23 16:11 Interval history: No acute overnight events. and 2 sons present at bedside. All questions answered to the satisfaction. The patient believes she is stronger and her pain is improved. She has no other complaints elicited. Review of Systems Review of Systems: All systems reviewed & are unremarkable except as noted in HPI and below (Subjective) Exam Const: General: comfortable and no acute distress Other: A&O x3 although forgetful Eyes: Pupils: Equal, round and reactive pupils present Resp: Effort & Inspection: normal respiratory effort Cardio: Rate: regular rate Rhythm: regular rhythm GI: GI Palp: Yes Soft to palpation and No Tenderness to palpation present (GI) Neuro: Other: Right lower extremity flexion at the hip limited by pain. Neurovascularly intact Extrem: General: no edema Objective Data Vital Signs Vital Signs: Vital Signs - 24 hr 08/01/23 19:00 08/02/23 06:00 08/02/23 06:19 Temperature 98.3 F 98.9 F 100.1 F H Pulse Rate 87 75 88 Respiratory Rate 16 18 16 Blood Pressure 177/87 H 129/67 166/81 H Pulse Oximetry 91 91 90 Oxygen Delivery Room Air Oxygen Flow Rate 08/02/23 08:50 08/02/23 09:05 08/02/23 09:20 Temperature 97.8 F Pulse Rate 70 63 60 Respiratory Rate 16 14 14 Blood Pressure 154/75 H 139/74 146/71 H Pulse Oximetry 100 100 100 Oxygen Delivery Simple Face Mask Simple Face Mask Simple Face Mask Oxygen Flow Rate 8 8 8 08/02/23 09:35 08/02/23 09:50 08/02/23 10:12 Temperature Pulse Rate 74 72 76 Respiratory Rate 14 16 16 Blood Pressure 143/74 H 152/79 H 151/74 H Pulse Oximetry 91 90 93 Oxygen Delivery Room Air Room Air Room Air Oxygen Flow Rate 08/02/23 09:08 08/02/23 09:38 08/02/23 13:27 Temperature 97.5 F L 98.2 F Pulse Rate 76 74 Respiratory Rate 16 16 Blood Pressure 140/69 142/79 H Pulse Oximetry 92 97 Oxygen Delivery Room Air Oxygen Flow Rate 08/02/23 10:38 Temperature 97.9 F Pulse Rate 76 Respiratory Rate 16 Blood Pressure 136/65 Pulse Oximetry 95 Oxygen Delivery Oxygen Flow Rate
[2023-08-02] MEDS: MEMANTINE 10 MG TABLET PO (16:37)
[2023-08-02] MEDS: DONEPEZIL HCL 5 MG TABLET PO (22:40)
[2023-08-02] MEDS: ATORVASTATIN 10 MG TABLET PO (22:40)
[2023-08-02] MEDS: AZELASTINE HCL NASAL 0.1% 137 MCG/SPR 30 ML BTL 1 SPRAY NASAL (22:41)
[2023-08-03 00:07] VITALS: BP 128/74; PULSE 64; RESP 16; TEMP 37.2; O2SAT 94
[2023-08-03 04:40] VITALS: BP 156/71; PULSE 75; RESP 16; TEMP 36.5; O2SAT 93
[2023-08-03] MEDS: ACETAMINOPHEN 500 MG TABLET 1000 MG PO ×4 (06:26→23:59)
[2023-08-03] MEDS: LEVOTHYROXINE SODIUM 50 MCG TABLET PO (06:26)
[2023-08-03] MEDS: ceFAZolin 2 GM/D5W 50 ML 2 GM/50 ML BAG IVPB (06:26)
[2023-08-03 06:47] LABS: Basophils Percent Auto 0.4 % (0.2-1.2); Eosinophils Absolute Auto 0.2 K/mm3 (0-0.3); Eosinophils Percent Auto 2.1 % (0-4.4); Hematocrit 42.2 % (37.0-47.0); Hemoglobin 13.7 g/dL (12.0-15.0); Immature Granulocyte Absolute 0.03 K/mm3 (0.00-0.031); Immature Granulocyte Percent A 0.4 % (0-0.5); Lymphocytes Absolute Auto 0.59 K/mm3 (0.9-3.2); Lymphocytes Percent Auto 8.3 % (18.3-44.2); Mean Corpuscular HGB Conc 32.5 g/dl (32-36); Mean Corpuscular Hemoglobin 30.3 pg (26-34); Mean Corpuscular Volume 93.4 fl (80-100); Mean Platelet Volume 11.3 fl (7.4-10.4); Monocytes Absolute Auto 0.8 K/mm3 (0.1-0.6); Neutrophils Absolute Auto 5.5 K/mm3 (1.3-6.7); Neutrophils Percent Auto 77.8 % (45.5-73.1); Platelet Count Result 148 k/mm3 (150-375); Red Blood Count 4.52 M/mm3 (4.2-5.4); Red Cell Distribution Width 13.1 % (11.5-14.5); White Blood Count 7.1 K/mm3 (4.5-10.0)
[2023-08-03 06:53] LABS: Anion Gap 3 mmol/L (8-16); Blood Urea Nitrogen 22 mg/dL (7-17); Calcium 8.9 mg/dL (8.4-10.2); Carbon Dioxide 29 mmol/L (22-30); Chloride 105 mmol/L (98-107); Estimated CRCL calculation 45 ml/min; Estimated Glomerular Filt Rate > 60; Glucose 153 mg/dL (65-110); Potassium 3.6 mmol/L (3.4-5.0); Sodium 137 mmol/L (137-145)
--- NOTE | 2023-08-03 08:33 | PM.PNORT ---
Progress Note: A&P Assessment and Plan (1) Subcapital fracture of right hip: Qualifiers: Encounter type: initial encounter Fracture type: closed Qualified Code(s): S72.011A - Unspecified intracapsular fracture of right femur, initial encounter for closed fracture Code(s): S72.011A - Unspecified intracapsular fracture of right femur, initial encounter for closed fracture Status: Acute Assessment and Plan: Postop day 1: Right hip pinning. Patient tolerated procedure well. No complications. Pain manageable with pain medication. No numbness or tingling. We had a lengthy discussion regarding postoperative wound care, limitations, expectations, and exercises. Patient shows good understanding. She has had initial physical therapy and is tolerating it well. She will be discharging to [facility]. She typically live at [facility] assisted living with her . Ortho instructions: Right hip pinning 08/02/23. D/C to SNF/rehab Xray at the facility in 2 weeks. Please call office when xray is complete. Xray and follow up in office in 4 weeks. Please call [facility] for appointment. Wound Care: Remove Mepilex dressing at 7 days post op. Remove steristrips at 14 days post op. May shower. No soaking. Toe-touch weight bearing right leg with walker until next visit. DVT prophylaxis: continue Lovenox for 2 weeks followed by 81 mg Aspirin twice a day for another 2 weeks. Okay to switch to oral 81 mg aspirin at discharge from SNF if earlier than 2 weeks. Pain medication:Tylenol. Subjective Subjective Date/Time Seen: 08/03/23 08:33 Principal diagnosis: Right femur fracture Interval history: Resting comfortably in bed. Minimal pain. Doing well. Review of Systems Review of Systems: Pain right hip and leg with movement. Denied pain elsewhere. All systems reviewed & are unremarkable except as noted in HPI and below Exam Narrative: Normal weight 82 y/o Female. Resting comfortably in bed. Wearing compression socks bilaterally. Dressing dry and intact with no drainage. Moderate swelling. No Disal Edema. No ecchymosis. No erythema. No hematoma. Range of motion limited due to pain. Calf nontender. Thigh nontender. No varicosities. Distal pulses palpable. Objective Data Vital Signs Vital Signs: Vital Signs - 24 hr 08/02/23 08:50 08/02/23 09:05 08/02/23 09:20 Temperature 97.8 F Pulse Rate 70 63 60 Respiratory Rate 16 14 14 Blood Pressure 154/75 H 139/74 146/71 H Pulse Oximetry 100 100 100 Oxygen Delivery Simple Face Mask Simple Face Mask Simple Face Mask Oxygen Flow Rate 8 8 8 08/02/23 09:35 08/02/23 09:50 08/02/23 10:12 Temperature Pulse Rate 74 72 76 Respiratory Rate 14 16 16 Blood Pressure 143/74 H 152/79 H 151/74 H Pulse Oximetry 91 90 93 Oxygen Delivery Room Air Room Air Room Air Oxygen Flow Rate 08/02/23 09:08 08/02/23 09:38 08/02/23 13:27 Temperature 97.5 F L 98.2 F Pulse Rate 76 74 Respiratory Rate 16 16 Blood Pressure 140/69 142/79 H Pulse Oximetry 92 97 Oxygen Delivery Room Air Oxygen Flow Rate 08/02/23 10:38 08/02/23 14:38 08/02/23 20:53 Temperature 97.9 F 97.1 F L 98.4 F Pulse Rate 76 75 68 Respiratory Rate 16 16 16 Blood Pressure 136/65 147/76 H 124/70 Pulse Oximetry 95 95 94 Oxygen Delivery Oxygen Flow Rate 08/03/23 00:07 08/03/23 04:40 Temperature 98.9 F 97.7 F Pulse Rate 64 75 Respiratory Rate 16 16 Blood Pressure 128/74 156/71 H Pulse Oximetry 94 93 Oxygen Delivery Oxygen Flow Rate Intake/Output Intake/Output: Intake & Output 07/31/23 08/01/23 08/02/23 08/03/23 23:59 23:59 23:59 23:59 Intake Total 720 1230 720 Output Total 2600 440 750 Balance -1880 790 -30 Meds/Results Medications: Active Medications Generic Name Dose Route Start Last Admin Trade Name Freq PRN Reason Stop Dose Admin Acetaminophen 1,000 mg 08/02/23 12:00 08/03/23 06:26
[2023-08-03] MEDS: SENNA/DOCUSATE SODIUM TABLET 2 TAB PO (10:05)
[2023-08-03] MEDS: MEMANTINE 10 MG TABLET PO ×2 (10:05→17:21)
[2023-08-03] MEDS: FAMOTIDINE 20 MG TABLET PO ×2 (10:05→20:44)
[2023-08-03] MEDS: CHOLECALCIFEROL 1,000 UNITS TABLET 2000 UNITS PO (10:05)
[2023-08-03] MEDS: LORATADINE 10 MG TABLET PO (10:05)
[2023-08-03] MEDS: polyethylene glycoL 3350 17 GM POWD.PACK PO (10:05)
[2023-08-03] MEDS: ENOXAPARIN 40 MG/0.4 ML SYRINGE SUB-Q (10:06)
[2023-08-03] MEDS: AZELASTINE HCL NASAL 0.1% 137 MCG/SPR 30 ML BTL 1 SPRAY NASAL ×2 (10:06→20:45)
[2023-08-03] MEDS: CLOBETASOL PROPIONATE 0.05% CREAM 15 GM 1 APPLIC TOPICAL (10:06)
[2023-08-03] MEDS: TIMOLOL MALEATE 0.5% OP SOLN 5 ML BOTTLE 1 DROP EACH EYE (10:07)
[2023-08-03] MEDS: LATANOPROST 0.005% OP SOLN 2.5 ML BTL 1 DROP EACH EYE (10:07)
[2023-08-03] MEDS: PSYLLIUM POWDER PACKET 1 PACKET PO (10:07)
[2023-08-03] MEDS: FLUTICASONE PROPIONATE 0.05% NA SPR 16 GM BTL (*BKC) 2 SPRAY NASAL (10:07)
[2023-08-03 10:28] VITALS: BP 121/63; PULSE 80; RESP 18; TEMP 37.2; O2SAT 95
[2023-08-03] MEDS: LIPASE/AMYLASE/PROTEASE 12,000 UNITS CAP 2 CAP PO ×2 (10:37→17:21)
--- NOTE | 2023-08-03 12:03 | PM.IMPN ---
Progress Note: A&P Assessment and Plan (1) Subcapital fracture of right hip: Qualifiers: Encounter type: initial encounter Fracture type: closed Qualified Code(s): S72.011A - Unspecified intracapsular fracture of right femur, initial encounter for closed fracture Code(s): S72.011A - Unspecified intracapsular fracture of right femur, initial encounter for closed fracture Status: Acute Assessment and Plan: -Status post close reduction percutaneous pinning right hip valgus impacted subcapital femoral fracture on 08/02/2023. -mobility, therapy, DVT prophylaxis per surgery team. -patient lives at [facility] with her . Care coordination arranging Dispo for her to return there with therapy. -remove Barrios catheter on 08/03 (2) Dyslipidemia: Code(s): E78.5 - Hyperlipidemia, unspecified Status: Acute Assessment and Plan: Continue atorvastatin (3) Hypothyroidism (acquired): Code(s): E03.9 - Hypothyroidism, unspecified Status: Acute Assessment and Plan: Continue levothyroxine (4) Elevated blood pressure reading: Code(s): R03.0 - Elevated blood-pressure reading, without diagnosis of hypertension Status: Acute Assessment and Plan: Controlled. Plan This is a pleasant 82-year-old female with a history of dementia, dyslipidemia, hypothyroidism, pancreatic insufficiency, irritable bowel syndrome with diarrhea, history of breast cancer presenting to [place] ER after right hip pain from a fall. She was found to have a subcapital fracture of the right femur. She was hypertensive on admission on 07/31/2023. FEN: Resume diet. Saline lock IV. GI prophylaxis: Not indicated DVT prophylaxis: Lovenox 40 mg q.day Lines: Peripheral IV, Code Status: Full code Dispo: Stable Subjective Date/time seen: 08/03/23 12:03 Interval history: Date/Time: 07/31/23? 17:25 Chief Complaint: Right hip pain after fall. Narrative: This is a pleasant 82-year-old female with dementia, dyslipidemia, hypothyroidism, pancreatic insufficiency, irritable bowel syndrome with diarrhea, and history of breast cancer who presented to the emergency department via EMS for evaluation of right hip pain after fall. The patient provides the following history. She felt fine when she got up this morning and went to [employer]. When they returned home and she was attempting to get out of the car, she bent over to pick something up at which time she felt a little dizzy and this caused her to lose her balance and fall to the ground onto her right side. She had immediate pain in her right hip and was unable to get herself up. Imaging in the ED showed a nondisplaced subcapital fracture of the right femur and she is being admitted in this setting for pain control and orthopedic consultation. She denies head trauma and loss of consciousness in the fall and she denies other injuries although she did sustain a skin tear of the right elbow. No syncope or near syncope. She denies paresthesias, skin color, and temperature changes distal to the fracture site. Interval Hx: Date/time seen: 08/01/23? 17:54 No acute overnight events.? The patient has no pain while resting in bed.? Denies any other complaints. Orthopedic consult date: 08/01/23 Chief complaint: Right femur fracture Narrative: ? Patient complains of acute right hip pain.? Fell from standing height.? Admitted through the emergency room for definitive management.? No previous hip pain.? Comfortable at rest.? No numbness, tingling, or other associated symptoms. Lives in assisted living with her . 08/02/2023: This is a pleasant 82-year-old female with a history of dementia, dyslipidemia, hypothyroidism, pancreatic insufficiency, irritable bowel syndrome with diarrhea, history of breast cancer presenting to [place] ER after right hip pain from a fall.? She was found to have a subcapital fracture of the right femur.? She was hypertensive on
[2023-08-03 20:00] VITALS: PULSE 82; RESP 14; O2SAT 96
[2023-08-03] MEDS: ATORVASTATIN 10 MG TABLET PO (20:44)
[2023-08-03] MEDS: DONEPEZIL HCL 5 MG TABLET PO (20:45)
[2023-08-03 22:00] VITALS: BP 135/67; PULSE 82; RESP 14; TEMP 37.4; O2SAT 96
[2023-08-04] MEDS: ACETAMINOPHEN 500 MG TABLET 1000 MG PO ×2 (05:46→12:11)
[2023-08-04] MEDS: LEVOTHYROXINE SODIUM 50 MCG TABLET PO (05:46)
[2023-08-04] MEDS: FAMOTIDINE 20 MG TABLET PO (09:02)
[2023-08-04] MEDS: FLUTICASONE PROPIONATE 0.05% NA SPR 16 GM BTL (*BKC) 2 SPRAY NASAL (09:02)
[2023-08-04] MEDS: LORATADINE 10 MG TABLET PO (09:02)
[2023-08-04] MEDS: LIPASE/AMYLASE/PROTEASE 12,000 UNITS CAP 2 CAP PO ×2 (09:02→12:13)
[2023-08-04] MEDS: CHOLECALCIFEROL 1,000 UNITS TABLET 2000 UNITS PO (09:02)
[2023-08-04] MEDS: MEMANTINE 10 MG TABLET PO (09:02)
[2023-08-04] MEDS: ENOXAPARIN 40 MG/0.4 ML SYRINGE SUB-Q (09:03)
[2023-08-04] MEDS: CLOBETASOL PROPIONATE 0.05% CREAM 15 GM 1 APPLIC TOPICAL (09:03)
[2023-08-04] MEDS: LATANOPROST 0.005% OP SOLN 2.5 ML BTL 1 DROP EACH EYE (09:03)
[2023-08-04] MEDS: AZELASTINE HCL NASAL 0.1% 137 MCG/SPR 30 ML BTL 1 SPRAY NASAL (09:03)
[2023-08-04] MEDS: PSYLLIUM POWDER PACKET 1 PACKET PO (09:04)
[2023-08-04] MEDS: TIMOLOL MALEATE 0.5% OP SOLN 5 ML BOTTLE 1 DROP EACH EYE (09:04)
--- NOTE | 2023-08-04 14:00 | PM.DS ---
DS: Admitting Diagnosis Discharge Date 08/04/2023 Admitting Diagnosis Right hip pain DS: Discharge Diagnosis Discharge Diagnosis (1) Subcapital fracture of right hip: Qualifiers: Encounter type: initial encounter Fracture type: closed Qualified Code(s): S72.011A - Unspecified intracapsular fracture of right femur, initial encounter for closed fracture Code(s): S72.011A - Unspecified intracapsular fracture of right femur, initial encounter for closed fracture Status: Acute (2) Dyslipidemia: Code(s): E78.5 - Hyperlipidemia, unspecified Status: Acute (3) Hypothyroidism (acquired): Code(s): E03.9 - Hypothyroidism, unspecified Status: Acute (4) Dementia: Qualifiers: Dementia type: unspecified type Dementia behavioral disturbance: without behavioral disturbance Qualified Code(s): F03.90 - Unspecified dementia without behavioral disturbance Code(s): F03.90 - Unspecified dementia, unspecified severity, without behavioral disturbance, psychotic disturbance, mood disturbance, and anxiety Status: Acute (5) Glaucoma: Code(s): H40.9 - Unspecified glaucoma Status: Acute (6) Pancreatic atrophy: Code(s): K86.89 - Other specified diseases of pancreas Status: Acute (7) Elevated blood pressure reading: Code(s): R03.0 - Elevated blood-pressure reading, without diagnosis of hypertension Status: Acute Plan -patient is pod 1 s/p: Right hip pinning, tolerated procedure no complications -DC to [id number] in the orthopedic office in 4 weeks -wound care remove Mepilex dressing 7 days postop, removed Steri-Strips at 14 days postop, patient allowed to shower no soaking DVT prophylaxis: Continue Lovenox for 2 weeks followed by 81 mg aspirin twice a day for another 2 weeks -continue pain medication: Tylenol q.4 hour DS: Summary Hospital Course Reason for hospitalization: Pleasant 82-year-old female with dementia, dyslipidemia, hypothyroidism, pancreatic insufficiency, irritable bowel syndrome with diarrhea, and history of breast cancer who presented to the emergency department via EMS for evaluation of right hip pain after fall. Hospital Course: The patient provides the following history. She felt fine when she got up this morning and went to [employer]. When they returned home and she was attempting to get out of the car, she bent over to pick something up at which time she felt a little dizzy and this caused her to lose her balance and fall to the ground onto her right side. She had immediate pain in her right hip and was unable to get herself up. Imaging in the ED showed a nondisplaced subcapital fracture of the right femur and she is being admitted in this setting for pain control and orthopedic consultation. She denies head trauma and loss of consciousness in the fall and she denies other injuries although she did sustain a skin tear of the right elbow. No syncope or near syncope. She denies paresthesias, skin color, and temperature changes distal to the fracture site. Interval Hx: Patient was seen by Orthopedic please see consultation below: History of Present Illness HPI Consult date: 08/01/23 Chief complaint: Right femur fracture Narrative: ? Patient complains of acute right hip pain.? Fell from standing height.? Admitted through the emergency room for definitive management.? No previous hip pain.? Comfortable at rest.? No numbness, tingling, or other associated symptoms. Lives in assisted living with her . 08/01/23? 17:54 No acute overnight events.? The patient has no pain while resting in bed.? Denies any other complaints. Date/time seen: 08/02/23? 16:11 No acute overnight events.? and 2 sons present at bedside.? All questions answered to the satisfaction.? The patient believes she is stronger and her pain is improved.? She has no other complaints elicited. 08/03:? I assumed care for patient today, she is sitting chair s
[2023-08-04 14:43] LABS: SARS-CoV-2 RNA PCR Negative (Negative)
[2023-08-04 15:29] VITALS: BP 134/65; PULSE 88; RESP 20; TEMP 37.9; O2SAT 98
--- NOTE | 2023-08-04 15:46 | PM.PNORT ---
Progress Note: A&P Assessment and Plan (1) Subcapital fracture of right hip: Qualifiers: Encounter type: initial encounter Fracture type: closed Qualified Code(s): S72.011A - Unspecified intracapsular fracture of right femur, initial encounter for closed fracture Code(s): S72.011A - Unspecified intracapsular fracture of right femur, initial encounter for closed fracture Status: Acute Assessment and Plan: Postop day 2: Right hip pinning. Continue current treatment plan. No changes today. Patient will be discharged to [facility] today. Spoke with family and discussed care plan. Patient tolerated procedure well. No complications. Pain manageable with pain medication. No numbness or tingling. We had a lengthy discussion regarding postoperative wound care, limitations, expectations, and exercises. Patient shows good understanding. She has had initial physical therapy and is tolerating it well. She will be discharging to [facility]. She typically live at the [facility] assisted living with her . Ortho instructions: Right hip pinning 08/02/23. D/C to SNF/rehab Xray at the facility in 2 weeks. Please call office when xray is complete. Xray and follow up in office in 4 weeks. Please call [facility] for appointment. Wound Care: Remove Mepilex dressing at 7 days post op. Remove steristrips at 14 days post op. May shower. No soaking. Toe-touch weight bearing right leg with walker until next visit. DVT prophylaxis: continue Lovenox for 2 weeks followed by 81 mg Aspirin twice a day for another 2 weeks. Okay to switch to oral 81 mg aspirin at discharge from SNF if earlier than 2 weeks. Pain medication:Tylenol. Subjective Subjective Date/Time Seen: 08/04/23 15:46 Interval history: Patient resting comfortably in bed. Little pain. Family at bedside. Going to SNF today. No CP, SOB, Calf pain. Review of Systems Review of Systems: Pain right hip and leg with movement. Denied pain elsewhere. All systems reviewed & are unremarkable except as noted in HPI and below Exam Narrative: Normal weight 82 y/o Female. Resting comfortably in bed. Wearing compression socks bilaterally. Dressing dry and intact with no drainage. Moderate swelling. No Disal Edema. No ecchymosis. No erythema. No hematoma. Range of motion limited due to pain. Calf nontender. Thigh nontender. No varicosities. Distal pulses palpable. Objective Data Vital Signs Vital Signs: Vital Signs - 24 hr 08/03/23 22:00 08/03/23 20:00 08/04/23 08:00 Temperature 99.4 F Pulse Rate 82 82 Respiratory Rate 14 14 Blood Pressure 135/67 Pulse Oximetry 96 96 Oxygen Delivery Room Air Room Air 08/04/23 15:29 Temperature 100.2 F H Pulse Rate 88 Respiratory Rate 20 Blood Pressure 134/65 Pulse Oximetry 98 Oxygen Delivery Intake/Output Intake/Output: Intake & Output 08/01/23 08/02/23 08/03/23 08/04/23 23:59 23:59 23:59 23:59 Intake Total 720 1230 1680 740 Output Total 2600 440 750 Balance -1880 790 930 740 Meds/Results Medications: Active Medications Generic Name Dose Route Start Last Admin Trade Name Freq PRN Reason Stop Dose Admin Acetaminophen 1,000 mg 08/02/23 12:00 08/04/23 12:11 Acetaminophen 500 Mg Tablet PO 1,000 mg Q6HR JUNITO Administration Lipase/Protease/Amylase 2 cap 08/01/23 08:00 08/04/23 12:13 Lipase/Amylase/Protease 12,000 Units Cap PO 2 cap TIDWM JUNITO Administration Atorvastatin Calcium 10 mg 07/31/23 22:50 08/03/23 20:44 Atorvastatin 10 Mg Tablet PO 10 mg QHS JUNITO Administration Azelastine HCl 1 spray 07/31/23 22:50 08/04/23 09:03 Azelastine Hcl Nasal 0.1% 137 Mcg/Spr 30 Ml Btl NASAL 1 spray Q12HR JUNITO Administration Clobetasol Propionate 1 applic 08/01/23 09:00 08/04/23 09:03 Clobetasol Propionate 0.05% Cream 15 Gm TOPICAL 1 applic DAILY JUNITO Administration Donepezil HCl 5 mg 07/08
--- NOTE | 2023-08-04 17:40 | PC.NURSE ---
gel packs sent with family, dressing changed, extra sent to facility. vs stable, EMS here to p/u and transfer to [facility]. all belongings sent with family. IV out.
== END 2023-08-04 17:40 | DRG 482 ==
LOC: ANHED 12:28 → ANH3MEDSUR 15:23
PROVIDERS: General Practice; Orthopaedic Surgery; Physician Assistant; Physician Assistant Surgical; Admitting Provider Internal Medicine; Emergency Provider Emergency Medicine; PCP Family Medicine; Visit Provider Nurse Practitioner
PROC: 0QS634Z Reposition Right Upper Femur with Internal Fixation Device, Percutaneous Approach (ICD-10-PCS; principal; 2023-08-02 07:30)
DX: S72.011A Unspecified intracapsular fracture of right femur, initial encounter for closed fracture (principal); I87.2 Venous insufficiency (chronic) (peripheral); E03.9 Hypothyroidism, unspecified; E78.5 Hyperlipidemia, unspecified; E55.9 Vitamin D deficiency, unspecified; K58.0 Irritable bowel syndrome with diarrhea; K86.89 Other specified diseases of pancreas; M85.80 Other specified disorders of bone density and structure, unspecified site; R03.0 Elevated blood-pressure reading, without diagnosis of hypertension; R73.03 Prediabetes; H40.9 Unspecified glaucoma; F03.90 Unspecified dementia, unspecified severity, without behavioral disturbance, psychotic disturbance, mood disturbance, and anxiety; W19.XXXA Unspecified fall, initial encounter; Z20.822 Contact with and (suspected) exposure to COVID-19; Z86.010 Personal history of colon polyps; Z85.3 Personal history of malignant neoplasm of breast
CPT/HCPCS: 36415; 71045; 73080; 73502; 80048; 80053; 83735; 85025; 85027; 85610; 85730; 87635; 93005; 96374; 96376; 97110; 97166; 97530; 97535; 99199; 99285; A9270; C1713; C1769; G0378; J0690; J1650; J1885; J2371; J2704; J3010; J7030; J7120

== ENCOUNTER 2023-12-14 10:14 | Outpatient (CLI) | payer MEDICARE, SELFPAY ==
--- NOTE | ~2023-12-14 | XR_ITS ---
XR hip RT 2V w AP pelvis Ordering provider: Calixto Saenz MD History: . S72.011A - Unspecified intracapsular fracture of right fe... . Comparison: July 31, 2023 FINDINGS: BONES: No acute fracture or dislocation. Fixation of the right hip by 3 screws. HIP JOINT SPACES: Bilateral severe osteoarthritic changes. SACROILIAC JOINT SPACES/LUMBAR SPINE: The sacroiliac joint spaces shows bilateral sacroiliacs.. Mild degenerative changes of the visualized lower lumbar spine. PUBIC SYMPHYSIS: Normal. SOFT TISSUES: Normal. IMPRESSION: No acute osseous abnormality pelvis and right hip. Reviewed, dictated and finalized at location A.
== END 2023-12-14 10:15 | disposition home or self-care (01) ==
LOC: ANHIMG 10:16
PROVIDERS: Visit Provider Orthopaedic Surgery
DX: S72.011A Unspecified intracapsular fracture of right femur, initial encounter for closed fracture (principal); X58.XXXA Exposure to other specified factors, initial encounter
CPT/HCPCS: 73502

== ENCOUNTER 2024-02-29 09:30 | Outpatient (CLI) | payer MEDICARE, SELFPAY ==
--- NOTE | ~2024-02-29 | US_ITS ---
EXAMINATION: US_VDOPREFBI_US DATE: 02/29/2024 10:58 INDICATION: Lower limb swelling TECHNIQUE: Grayscale ultrasound images without and with compression and Doppler ultrasound images of the bilateral lower extremity veins were obtained. COMPARISON: None. FINDINGS: The visualized portions of right common femoral vein, profunda (deep) femoral vein, femoral vein, pop liteal vein, posterior tibial veins, peroneal veins, gastrocnemius vein and greater saphenous vein ar e patent. Right standing venous mapping: reflux seconds duration; vein size. Greater saphenous origin: 0 seconds; 3.4 mm. Greater saphenous mid thigh:------ <1 second seconds; 2.9 mm. Greater saphenous below knee:--- 4.5 seconds; 1.6 mm. Lesser saphenous proximally:------ 0 seconds; 1.4 mm. Lesser saphenous distally: 0 seconds; 1.6 mm. The visualized portions of left common femoral vein, profunda femoral vein, femoral vein, popliteal v ein, posterior tibial veins, peroneal veins, gastrocnemius vein and greater saphenous vein are patent . Left standing venous mapping: reflux seconds duration; vein size. Greater saphenous origin: 0 seconds; 4.6 mm. Greater saphenous mid thigh:------ 0 seconds; 3.9 mm. Greater saphenous below knee:--- 0 seconds; 1.4 mm. Lesser saphenous proximally:------ 0 seconds; 1.4 mm. Lesser saphenous distally: 0 seconds; 1.7 mm. IMPRESSION: 1. No deep venous thrombosis in either lower limb. 2. 4.5 cm reflux at the below the knee right greater saphenous vein. Reviewed, dictated and finalized at location A.
== END 2024-02-29 09:31 | disposition home or self-care (01) ==
PROVIDERS: PCP Family Medicine; Visit Provider Family Medicine
DX: I87.2 Venous insufficiency (chronic) (peripheral) (principal); R60.0 Localized edema
CPT/HCPCS: 93970

== ENCOUNTER 2024-03-08 09:47 | Emergency (ER) | payer MEDICARE, SELFPAY ==
--- NOTE | ~2024-03-08 | XR_ITS ---
EXAMINATION: XR hip LT 2V w AP pelvis DATE: 03/08/2024 10:47 INDICATION: Left hip pain post fall TECHNIQUE: Anteroposterior view of the pelvis and anteroposterior and frog-leg lateral views of the l eft hip were obtained. COMPARISON: None. FINDINGS: Again seen is an old subcapital fracture of the right femur which is fixed with 3 cannulated lock scr ews. Unchanged secondary subsidence along the fracture plane with backing out of the screws along the lateral margin of the intratrochanteric femur. No acute fracture. Mild bilateral hip osteoarthritis. Moderate bilateral sacroiliac osteoarthritis. IMPRESSION: 1. No acute osseous abnormality. 2. Chronic laxative fixation of a subcapital fracture the proximal right femur with unchanged seconda ry subsidence along the fracture plane with backing out of the fixation screws. Reviewed, dictated and finalized at location A. IMPRESSION: 1. No acute osseous abnormality. 2. Chronic laxative fixation of a subcapital fracture the proximal right femur with unchanged secondary subsidence along the fracture plane with backing out o f the fixation screws.
--- NOTE | 2024-03-08 10:07 | ED.LOWEXIN ---
HPI - Extremity Injury (Lower) General Chief Complaint: Extremity Injury, Lower Stated Complaint: fall, lt hip pain Time Seen by Provider: 03/08/24 10:12 Source: patient Mode of arrival: ambulatory Limitations: no limitations History of Present Illness HPI Narrative: 83 y/o female with hx dementia, presented for c/o left hip pain after she fell yesterday at 1030. Pt refused EMS to go to hospital after the injury. Has been able to walk using her walker, but reports pain to the hip. Took Tylenol yesterday. Rates pain 01/13. pt reports she did not use her walker when she got up yesterday, and subsequently fell onto the hard floor. Admits to striking the left samaritan on the ground, causing her glasses to break and cut the face. States the professor of business applied a makeshift butterfly to the left eye laceration using a bandaid. Denies headache, dizziness, n/v, neck pain, numbness, tingling or weakness to the extremities. Hx right hip FX 07/2023. Related Data Home Medications Medication Instructions Recorded Confirmed cholecalciferol (vitamin D3) 50 50 mcg PO DAILY 07/05/19 03/08/24 mcg (2,000 unit) capsule latanoprost 0.005 % eye drops 1 drop ophthalmic (eye) DAILY 07/05/19 03/08/24 memantine 10 mg tablet 10 mg PO BID 01/16/21 03/08/24 clobetasol 0.05 % scalp solution 1 applic topical DAILY 01/25/22 03/08/24 donepezil 10 mg tablet 5 mg PO QHS 04/11/23 03/08/24 timolol 0.5 % eye drops 1 drp EACH EYE DAILY 06/14/23 03/08/24 atorvastatin 10 mg tablet 10 mg PO QHS 01/30/24 03/08/24 Allergies Allergy/AdvReac Type Severity Reaction Status Date / Time Penicillins Allergy Mild HIVES Verified 03/08/24 10:05 Review of Systems Review of Systems: CONSTITUTIONAL: Denies body aches, fever, chills EYES: Reports left eye contusion Denies visual changes ENT: Denies rhinorrhea, epistaxis CARDIOVASCULAR: Denies chest pain, palpitations, or edema. RESPIRATORY: Denies cough or dyspnea. GASTROINTESTINAL: Denies abdominal pain, nausea, vomiting, or diarrhea. SKIN: Reports left hand bruising, left eye bruising with laceration MUSCULOSKELETAL: Reports left hip pain NEUROLOGIC: Denies headache, dizziness, numbness, tingling, or weakness. All systems reviewed & are unremarkable except as noted in HPI and below PMFSH Past Medical History Medical History Cancer of right breast (12/2002) Status post lumpectomy and radiation therapy. Chronic diarrhea Chronic venous insufficiency of lower extremity Colon polyps Dementia Dyslipidemia Fracture of hip Glaucoma Hypothyroidism (acquired) Intraductal papillary mucinous neoplasm Irritable bowel syndrome Osteopenia after menopause Pancreatic atrophy Prediabetes Vesicular eczema of hands and feet Vitamin D deficiency Surgical History Surgical History History of appendectomy (1951) History of bilateral cataract extraction (06/2017) History of lumpectomy of right breast (2002) History of sacrocolpopexy (2016) History of total hysterectomy (1997) Status post hip surgery (~07/13/23) Right hip pinning Family History Family History Other Hypertension Social History Social History Social History: Surrogate medical decision maker: Zack Clemens, son. Code status: Full code. Smoking status: Never smoker Second hand tobacco smoke exposure: No Alcohol intake: never Substance use: never Substance use type: does not use Do You Feel Safe in your Home?: Yes Lack of Transportation: No Lack of Food: Never True Current Housing: I Have Housing Concerned About Future Housing: No Difficulty Paying Gas/Electric Bills: No Difficulty Paying for Meds: No Currently Unemployed: No Education: Master's Degree or Higher Difficulty w/ Childcare or Family Care: No Living ar
[2024-03-08 10:11] VITALS: BP 148/73; PULSE 91; RESP 16; TEMP 36.6; O2SAT 96
== END 2024-03-08 11:40 | disposition home or self-care (01) ==
PROVIDERS: Emergency Provider Nurse Practitioner Family; PCP Family Medicine
DX: M25.552 Pain in left hip (principal); S05.12XA Contusion of eyeball and orbital tissues, left eye, initial encounter; W19.XXXA Unspecified fall, initial encounter; F03.90 Unspecified dementia, unspecified severity, without behavioral disturbance, psychotic disturbance, mood disturbance, and anxiety; H40.9 Unspecified glaucoma; E03.9 Hypothyroidism, unspecified; M85.80 Other specified disorders of bone density and structure, unspecified site; R73.03 Prediabetes; E55.9 Vitamin D deficiency, unspecified; I87.2 Venous insufficiency (chronic) (peripheral); Z85.3 Personal history of malignant neoplasm of breast; Z90.11 Acquired absence of right breast and nipple; Z98.42 Cataract extraction status, left eye; Z98.41 Cataract extraction status, right eye
CPT/HCPCS: 73502; 99213; G0463

== ENCOUNTER 2024-03-14 13:50 | Outpatient (CLI) | payer MEDICARE, SELFPAY ==
--- NOTE | ~2024-03-14 | XR_ITS ---
AP view of the pelvis and AP and lateral views of the right hip Clinical history: Postoperative COMPARISON: 03/08/2024 Findings: Stable orthopedic screws within the right femoral neck. Bilateral hip joint spaces are pres erved. Soft tissues are unremarkable. Impression: No acute abnormality. Stable right femoral neck orthopedic screws transfixing underlying subcapital fracture deformity. Reviewed, dictated and finalized at location . Impression: No acute abnormality. Stable right femoral neck orthopedic screws transfixing underlying subcapital f racture deformity.
== END 2024-03-14 13:51 | disposition home or self-care (01) ==
PROVIDERS: PCP Family Medicine; Visit Provider Orthopaedic Surgery
DX: Z98.890 Other specified postprocedural states (principal)
CPT/HCPCS: 73502

== ENCOUNTER 2024-03-15 14:33 | Emergency (ER) | payer MEDICARE, SELFPAY ==
[2024-03-15 14:40] VITALS: BP 174/74; PULSE 83; RESP 14; TEMP 36.7; O2SAT 95
--- NOTE | 2024-03-15 14:49 | ECG_ITS ---
Test Date: 2024-03-15 14:56:00 Measurements Intervals [place] Rate: 67 P: 61 NC: 144 QRS: 38 QRSD: 94 T: 84 QT: 396 QTc: 418 Interpretive Statements SINUS RHYTHM POSSIBLE LEFT ATRIAL ENLARGEMENT [-0.1mV P-WAVE IN V1/V2] MINIMAL ST DEPRESSION [0.025+ mV ST DEPRESSION] BORDERLINE ECG No previous ECG available for comparison Electronically Signed On 03-15-2024 16:14:45 CDT by Neftali Cherry M.D.
[2024-03-15 15:10] LABS: Basophils Absolute Auto 0.1 K/mm3 (0.0-0.1); Basophils Percent Auto 1.2 % (0.2-1.2); Eosinophils Absolute Auto 0.1 K/mm3 (0-0.3); Hematocrit 37.4 % (37.0-47.0); Hemoglobin 12.4 g/dL (12.0-15.0); Immature Granulocyte Absolute 0.03 K/mm3 (0.00-0.031); Immature Granulocyte Percent A 0.6 % (0-0.5); Lymphocytes Percent Auto 12.1 % (18.3-44.2); Mean Corpuscular HGB Conc 33.2 g/dl (32-36); Mean Corpuscular Hemoglobin 30.5 pg (26-34); Mean Corpuscular Volume 92.1 fl (80-100); Mean Platelet Volume 10.3 fl (7.4-10.4); Monocytes Absolute Auto 0.6 K/mm3 (0.1-0.6); Monocytes Percent Auto 11.7 % (2.6-8.5); Neutrophils Absolute Auto 3.6 K/mm3 (1.3-6.7); Neutrophils Percent Auto 72.4 % (45.5-73.1); Platelet Count Result 234 k/mm3 (150-375); Red Blood Count 4.06 M/mm3 (4.2-5.4); Red Cell Distribution Width 13.1 % (11.5-14.5)
--- NOTE | 2024-03-15 15:13 | ED.RECABL ---
HPI - Recheck/Abnormal Lab/Rx General Chief Complaint: Recheck/Abnormal Lab/Rx Stated Complaint: sent by PCP for elevated BP Time Seen by Provider: 03/15/24 14:46 History of Present Illness HPI narrative: Patient was found to have elevated blood pressure in office and was sent to the ER. She is denying any complaints, she has no chest pain, shortness of breath, has is very slight headache but this was from her fall week ago, denies any focal numbness or weakness. She is not currently taking any blood pressure medications. Related Data Home Medications Medication Instructions Recorded Confirmed cholecalciferol (vitamin D3) 50 50 mcg PO DAILY 07/05/19 03/14/24 mcg (2,000 unit) capsule latanoprost 0.005 % eye drops 1 drop ophthalmic (eye) DAILY 07/05/19 03/14/24 memantine 10 mg tablet 10 mg PO BID 01/16/21 03/14/24 clobetasol 0.05 % scalp solution 1 applic topical DAILY 01/25/22 03/14/24 donepezil 10 mg tablet 5 mg PO QHS 04/11/23 03/14/24 timolol 0.5 % eye drops 1 drp EACH EYE DAILY 06/14/23 03/14/24 atorvastatin 10 mg tablet 10 mg PO QHS 01/30/24 03/14/24 Allergies Allergy/AdvReac Type Severity Reaction Status Date / Time Penicillins Allergy Mild HIVES Verified 03/14/24 15:33 Review of Systems Review of Systems: All systems reviewed & are unremarkable except as noted in HPI and below PMFSH Past Medical History Medical History Cancer of right breast (12/2002) Status post lumpectomy and radiation therapy. Chronic diarrhea Chronic venous insufficiency of lower extremity Colon polyps Dementia Dyslipidemia Fracture of hip (~07/2023) Glaucoma Hypothyroidism (acquired) Intraductal papillary mucinous neoplasm Irritable bowel syndrome Osteopenia after menopause Pancreatic atrophy Prediabetes Vesicular eczema of hands and feet Vitamin D deficiency Surgical History Surgical History History of appendectomy (1951) History of bilateral cataract extraction (06/2017) History of lumpectomy of right breast (2002) History of sacrocolpopexy (2016) History of total hysterectomy (1997) Status post hip surgery (~07/13/23) Right hip pinning Family History Family History Other Hypertension Social History Social History Social History: Surrogate medical decision maker: Zack Clemens, son. Code status: Full code. Smoking status: Never smoker Second hand tobacco smoke exposure: No Alcohol intake: never Substance use: never Substance use type: does not use Do You Feel Safe in your Home?: Yes Lack of Transportation: No Lack of Food: Never True Current Housing: I Have Housing Concerned About Future Housing: No Difficulty Paying Gas/Electric Bills: No Difficulty Paying for Meds: No Currently Unemployed: No Education: Master's Degree or Higher Difficulty w/ Childcare or Family Care: No Living arrangements: with family Additional living arrangements comments: Lives with spouse in independent living at [facility]. Occupation/Education: retired Spiritual care concerns: No Exam Narrative: EXAMINATION OF ORGAN SYSTEMS/BODY AREAS: Constitutional: Vital signs per nursing GENERAL:[No acute distress, non-toxic appearing.] HEAD: Healing bruise left eye EYES: Left eye ecchymosis ENT: Hearing grossly intact LUNGS: Nonlabored breathing. HEART: [Regular rate and rhythm] ABD: [Soft], [nontender to palpation] EXT: Normal range of motion SKIN: Bruising around left eye, left hand NEURO: [Alert. No gross focal sensory or strength deficits. Moving all extremities normally, clear speech.] PSYCH: Normal affect Course Vital Signs Vital signs: Vital Signs Temperature 98.1 F 03/15/24 14:40 Pulse Rate 83 03/15/24 14:40 Respiratory Rate 14 03/15/24 14:40 Blood Pr
[2024-03-15 15:21] LABS: Alanine Aminotransferase 15 U/L (6-35); Albumin Level 4.1 g/dL (3.5-5.1); Alkaline Phosphatase 166 U/L (38-126); Anion Gap 8 mmol/L (4-12); Aspartate Amino Transferase 22 U/L (14-36); Bilirubin,Total 0.5 mg/dL (0.2-1.3); Blood Urea Nitrogen 24 mg/dL (7-17); Carbon Dioxide 27 mmol/L (22-30); Chloride 99 mmol/L (98-107); Estimated CRCL calculation 49 ml/min; Estimated Glomerular Filt Rate > 60; Glucose 305 mg/dL (65-110); Magnesium 1.9 mg/dL (1.6-2.3); Sodium 134 mmol/L (137-145)
[2024-03-15 15:33] LABS: Troponin I < 0.012 ng/mL (0.000-0.034)
[2024-03-15 15:39] VITALS: BP 173/83; PULSE 81; RESP 18; O2SAT 96
[2024-03-15] MEDS: amLODIPine BESYLATE 5 MG TABLET PO (15:46)
== END 2024-03-15 16:02 | disposition home or self-care (01) ==
PROVIDERS: Emergency Provider Emergency Medicine; PCP Family Medicine
DX: I10 Essential (primary) hypertension (principal); I87.2 Venous insufficiency (chronic) (peripheral); F03.90 Unspecified dementia, unspecified severity, without behavioral disturbance, psychotic disturbance, mood disturbance, and anxiety; E03.9 Hypothyroidism, unspecified; E78.5 Hyperlipidemia, unspecified; E55.9 Vitamin D deficiency, unspecified; H40.9 Unspecified glaucoma; R73.03 Prediabetes; K58.9 Irritable bowel syndrome, unspecified; M85.80 Other specified disorders of bone density and structure, unspecified site; Z86.0100 Personal history of colon polyps, unspecified; Z92.3 Personal history of irradiation; Z85.3 Personal history of malignant neoplasm of breast; Z98.42 Cataract extraction status, left eye; Z98.41 Cataract extraction status, right eye; Z90.710 Acquired absence of both cervix and uterus; Z79.899 Other long term (current) drug therapy; R94.31 Abnormal electrocardiogram [ECG] [EKG]
CPT/HCPCS: 36415; 80053; 83735; 84484; 85025; 93005; 99284; A9270

== ENCOUNTER 2024-04-04 12:51 | Outpatient (CLI) | payer MEDICARE, SELFPAY ==
--- NOTE | ~2024-04-04 | XR_ITS ---
XR hip LT 2V w AP pelvis Ordering provider: JOSIAS Landry History: . M16.12 - Unilateral primary osteoarthritis, left hip . Comparison: March 14, 2024 FINDINGS: BONES: No acute fracture or dislocation. Postoperative changes in the right femoral neck. HIP JOINT SPACES: Bilateral hip mild to moderate osteoarthritic changes SACROILIAC JOINT SPACES/LUMBAR SPINE: The sacroiliac joint spaces are normal. Mild degenerative mclean es of the visualized lower lumbar spine. PUBIC SYMPHYSIS: Sclerotic changes in the left pubic bone. SOFT TISSUES: Normal. IMPRESSION: No acute osseous abnormality pelvis and left hip. Reviewed, dictated and finalized at location A.
== END 2024-04-04 12:52 | disposition home or self-care (01) ==
PROVIDERS: PCP Family Medicine; Visit Provider Physician Assistant Surgical
DX: M16.12 Unilateral primary osteoarthritis, left hip (principal)
CPT/HCPCS: 73502

== ENCOUNTER 2024-06-01 16:05 | Emergency (ER) | payer MEDICARE, SELFPAY ==
[2024-06-01 17:16] VITALS: BP 185/86; PULSE 74; RESP 18; TEMP 37.6; O2SAT 96
--- NOTE | 2024-06-01 19:11 | ED_ITS ---
HPI - URI/Sore Throat General Chief Complaint: Upper Respiratory Infection Stated Complaint: Covid/Flu Test Time Seen by Provider: 06/01/24 19:10 Source: patient, RN notes reviewed and old records reviewed Mode of arrival: ambulatory Limitations: no limitations History of Present Illness HPI Narrative: 83 year old female accompanied by spouse with complaints of 2 week duration of cough with some nasal congestion and drainage with no known fevers,feels a little achy, states throat is a little sore but denies any increased pain with swallowing. Patient and spouse are residents of [facility], [place] and were told that they should come and have flu and COVID test since patient has had cough and illness is going around. Patient uses nasal spray daily and takes daily Claritin. MD elicited complaint: cough, sore throat, rhinorrhea and nasal congestion Onset (ago): week(s) (2) Consistency: constant Severity: mild Able to tolerate fluids by mouth: Yes Treatments prior to arrival: other (claritin and nasal spray) Related Data Home Medications ?Medication ?Instructions ?Recorded ?Confirmed ?Last Taken ?Type cholecalciferol (vitamin D3) 50 50 mcg PO DAILY 07/05/19 04/05/24 07/30/23 09:00 History mcg (2,000 unit) capsule latanoprost 0.005 % eye drops 1 drop ophthalmic (eye) DAILY 07/05/19 04/05/24 07/30/23 09:00 History memantine 10 mg tablet 10 mg PO BID 01/16/21 04/05/24 07/30/23 17:00 History clobetasol 0.05 % scalp solution 1 applic topical DAILY 01/25/22 04/05/24 Unknown History donepezil 10 mg tablet 5 mg PO QHS 04/11/23 04/05/24 07/30/23 20:00 History timolol 0.5 % eye drops 1 drp EACH EYE DAILY 06/14/23 04/05/24 07/30/23 09:00 History Allergies Allergy/AdvReac Type Severity Reaction Status Date / Time Penicillins Allergy Mild HIVES Verified 06/01/24 18:21 Review of Systems Review of Systems: CONSTITUTIONAL: Denies malaise, chills, sweats, or fever. EYES: Denies visual changes, redness, or discharge. ENT: Reports rhinorrhea, congestion, sinus pain, no otalgia and scratchy sore throat. CARDIOVASCULAR: Denies chest pain, palpitations, or edema. RESPIRATORY: Reports cough.? Denies dyspnea. GASTROINTESTINAL: Denies abdominal pain, nausea, vomiting, diarrhea SKIN: Denies rash or itching. MUSCULOSKELETAL: Reports mild myalgia. NEUROLOGIC: Denies headache. All systems reviewed & are unremarkable except as noted in HPI and below PMFSH Past Medical History Medical History Essential (primary) hypertension Fracture of hip (~07/2023) Glaucoma Intraductal papillary mucinous neoplasm Irritable bowel syndrome Cancer of right breast (12/2002) Status post lumpectomy and radiation therapy. Chronic venous insufficiency of lower extremity Pancreatic atrophy Chronic diarrhea Vesicular eczema of hands and feet Dementia Osteopenia after menopause Prediabetes Dyslipidemia Hypothyroidism (acquired) Colon polyps Vitamin D deficiency Surgical History Surgical History Status post hip surgery (~07/13/23) Right hip pinning History of bilateral cataract extraction (06/2017) History of lumpectomy of right breast (2002) History of sacrocolpopexy (2016) History of total hysterectomy (1997) History of appendectomy (1951) Family History Family History Other Hypertension Social History Social History Social History: Surrogate medical decision maker: Zack Clemens, son. Code status: Full code. Smoking status: Never smoker Second hand tobacco smoke exposure: No Alcohol intake: never Substance use: never Substance use type: does not use Do You Feel Safe in your Home?: Yes Lack of Transportation: No Lack of Food: Never True Current Housing: I Have Housing Concerned About Future Housing: No Difficulty Paying Gas/Electric Bills: No Difficulty Paying for Meds: No Currently Unemployed: No Education: Master's Degree or Higher Difficulty w/ Childcare or Family Care: No Living arrangements: with family Additional living arrangements comments: Lives with spouse in independent living at [facility] [place]. Occupation/Education: retired Spiritual care concerns: No Comments At time of signature, agree with nursing past medical, surgical, social and family history. There is no relevant family history pertinent to the presenting complaint Exam Narrative: GENERAL: chronic ill appearing,frail, fair-nourished, and in no acute distress. HEAD: Normocephalic EYES: PERRLA, conjunctivae clear ENT: Nares clear, turbinates edematous and erythematous, clear discharge. Mucous membranes moist. TM pearly stewart with dull light reflex bilaterally; no tragal tenderness. Oropharynx erythematous without lesions. Tonsils not present and throat without exudate, no drooling, no hoarseness, no trismus, uvula midline.post nasal drainage present NECK: Supple. No lymphadenopathy CHEST: Clear decreased breath sounds to auscultation, breath sounds equal. No wheezing, rhonchi, rales, or stridor. No respiratory distress, speaks in full sentences.dry cough, SAO2 96% on room air HEART: Regular rate and rhythm. No murmur heard. SKIN: Warm, dry, no rash. NEURO: Alert and oriented x3. PSYCH: Normal mood and affect has early onset dementia Course Course Emergency Course: Patient is aware of diagnosis, understands and agrees to treatment plan.? Anticipatory guidance given.? Patient agrees to follow-up as directed and is aware of reasons to seek care at the emergency department. Portions of this record may have been created with voice recognition software Level of Care: Express Care Visit Vital Signs Vital signs: Vital Signs Temperature 37.6 C H 06/01/24 17:16 Pulse Rate 74 06/01/24 17:16 Respiratory Rate 18 06/01/24 17:16 Blood Pressure 185/86 H 06/01/24 17:16 Pulse Oximetry 96 06/01/24 17:16 Temperature 37.6 C H 06/01/24 17:16 Pulse Rate 74 06/01/24 17:16 Respiratory Rate 18 06/01/24 17:16 Blood Pressure 185/86 H 06/01/24 17:16 Pulse Oximetry 96 06/01/24 17:16 Oxygen Delivery Room Air 06/01/24 17:30 Reviewed MDM - URI/Sore Throat MDM Narrative Medical decision making narrative: Differential diagnosis considered: [place] virus, strep pharyngitis, allergic rhinitis, upper respiratory tract infection, sinusitis, rhinosinusitis, naso pharyngitis. viral pharyngitis, otitis media, otitis externa, pneumonia, bronchitis, viral cough syndrome, viral syndrome, and influenza.? Exam findings show no acute concerns or changes; patient is non-toxic appearing and is in no distress.? Patient is appropriate for outpatient treatment and follow-up. Differential Diagnosis Differential diagnosis: Likely upper respiratory infection, otitis media, sinusitis, viral infection, influenza and other (COVID, ) Medical Records Attestation: I reviewed the patient's medical records. Lab Data Attestation: I reviewed the patient's lab results. Lab results narrative: Influenza A negative, Influenza B negative, COVID antigen positive Labs: Lab Results 06/01/24 Range/Units 17:15 POC Influenza A Ag Negative (Negative) POC Influenza B Ag Negative (Negative) POC SARS CoV-2 Ag Negative (Negative) reviewed Critical Care Time Critical Care Time Critical Care Time: No Discharge Plan Discharge Clinical Impression: URI, acute Patient Disposition: Home, Self-Care Condition: Stable Instructions: Antibiotic Form, Upper Respiratory Infection (ED) Additional Instructions: Increase fluids especially juices and water [id number] cough and cold medicine of your choice for your symptoms Zyrtec Claritin or [place] daily Tylenol or ibuprofen for any fever pain heat to the face 20-30 minutes 4-6 times a day for pain Salt water gargles, throat lozenges or throat sprays as desired Antibiotic as directed--finished the medication If your symptoms persist, change or worsen significantly before you can contact your personal physician then please, without delay, go to the emergency department for further evaluation. Follow-up with PCP in 7-10 days or sooner if needed Follow up with PCP soon in regards to your blood pressure which is elevated above threshold for referral. Blood pressure above 120/80 may indicate pre- hypertension. 185/86 Patient Language: Ecuadorean Prescriptions: New azithromycin 250 mg tablet See Rx Instructions .ROUTE .COMPLEX Qty: 6 0RF Rx Instructions: For 250 mg dose pack: take 500 mg today (day 1), then 250 mg for 4 days (days 2-5) No Action cholecalciferol (vitamin D3) 50 mcg (2,000 unit) capsule 50 mcg PO DAILY latanoprost 0.005 % drops 1 drop EACH EYE DAILY donepezil 10 mg tablet 5 mg PO QHS clobetasol 0.05 % solution 1 applic topical DAILY Metamucil (with sugar) 3.4 gram/12 gram powder 1 tbsp PO DAILY Qty: 575 0RF timolol 0.5 % drops 1 drp EACH EYE DAILY Creon 24,000-76,000 -120,000 unit capsule,delayed release(DR/EC) 1 cap PO TID 30 Days Qty: 90 11RF Rx Instructions: administer with meals memantine 10 mg tablet 10 mg PO BID levothyroxine 88 mcg tablet 88 mcg PO DAILY Qty: 90 1RF loratadine [Claritin] 10 mg tablet 10 mg PO DAILY Qty: 90 1RF fluticasone propionate [Allergy Relief (fluticasone)] 50 mcg/actuation spray,suspension 2 spray intranasal DAILY Qty: 48 1RF Rx Instructions: administer into each nostril estradiol 0.01 % (0.1 mg/gram) cream See Rx Instructions .ROUTE .COMPLEX Qty: 42.5 0RF Dose Instruction: INSERT 1 GRAM VAGINALLY TWICE A WEEK ON TUESDAY AND TUESDAY Rx Instructions: INSERT 1 GRAM VAGINALLY TWICE A WEEK ON TUESDAY AND TUESDAY atorvastatin 10 mg tablet 10 mg PO QHS Qty: 90 1RF amlodipine 5 mg tablet 5 mg PO DAILY Qty: 90 1RF Follow-up/Referrals: PHYSICIAN,UAT TESTER [Primary Care Provider] - Time of Disposition: 19:21 Quality [place] Coma Scale Eyes: Open Verbal: Oriented and Alert Motor: Follows Commands Farideh Coma Total Score: 15
[2024-06-01 19:30] LABS: EDCOVIDSCREEN Negative (Negative); EDINFLUASCREEN Negative (Negative); EDINFLUBSCREEN Negative (Negative)
== END 2024-06-01 19:27 | disposition home or self-care (01) ==
PROVIDERS: Emergency Provider Registered Nurse
DX: J06.9 Acute upper respiratory infection, unspecified (principal); F03.90 Unspecified dementia, unspecified severity, without behavioral disturbance, psychotic disturbance, mood disturbance, and anxiety; E03.9 Hypothyroidism, unspecified; Z85.3 Personal history of malignant neoplasm of breast; Z20.822 Contact with and (suspected) exposure to COVID-19
CPT/HCPCS: 87426; 87804; 99213; G0463

== ENCOUNTER 2024-06-14 10:59 | Outpatient (CLI) | payer MEDICARE, SELFPAY ==
[2024-06-14 20:30] LABS: Alanine Aminotransferase 16 U/L (6-35); Albumin Level 4.1 g/dL (3.5-5.1); Alkaline Phosphatase 115 U/L (38-126); Anion Gap 5 mmol/L (4-12); Aspartate Amino Transferase 25 U/L (14-36); Bilirubin,Total 0.6 mg/dL (0.2-1.3); Blood Urea Nitrogen 23 mg/dL (7-17); Calcium 9.9 mg/dL (8.4-10.2); Carbon Dioxide 33 mmol/L (22-30); Chloride 100 mmol/L (98-107); Cholesterol 208 mg/dL (0-200); Estimated Glomerular Filt Rate > 60; Glucose 96 mg/dL (65-110); HDL Direct 81 mg/dL; Potassium 4.7 mmol/L (3.4-5.0); Sodium 138 mmol/L (137-145); Triglycerides 222 mg/dL (<150)
[2024-06-14 20:41] LABS: LDL Cholesterol Direct 80 mg/dL
[2024-06-14 20:49] LABS: Basophils Absolute Auto 0.1 K/mm3 (0.0-0.1); Basophils Percent Auto 1.2 % (0.2-1.2); Eosinophils Absolute Auto 0.1 K/mm3 (0-0.3); Eosinophils Percent Auto 1.4 % (0-4.4); Hematocrit 41.2 % (37.0-47.0); Hemoglobin 13.3 g/dL (12.0-15.0); Immature Granulocyte Absolute 0.03 K/mm3 (0.00-0.031); Immature Granulocyte Percent A 0.4 % (0-0.5); Lymphocytes Absolute Auto 1.02 K/mm3 (0.9-3.2); Lymphocytes Percent Auto 12.7 % (18.3-44.2); Mean Corpuscular HGB Conc 32.3 g/dl (32-36); Mean Corpuscular Hemoglobin 30.2 pg (26-34); Mean Corpuscular Volume 93.4 fl (80-100); Monocytes Absolute Auto 0.7 K/mm3 (0.1-0.6); Monocytes Percent Auto 8.1 % (2.6-8.5); Neutrophils Absolute Auto 6.1 K/mm3 (1.3-6.7); Neutrophils Percent Auto 76.2 % (45.5-73.1); Platelet Count Result 264 k/mm3 (150-375); Red Blood Count 4.41 M/mm3 (4.2-5.4); Red Cell Distribution Width 12.9 % (11.5-14.5)
[2024-06-14 20:55] LABS: Vitamin D 25 Hydroxy 62.5 ng/mL
[2024-06-14 21:06] LABS: MALB Creatinine Ratio 8.4 mg/g (0-30); Microalbumin Urine Random 9.3 mg/L (0-16.7)
[2024-06-14 21:20] LABS: Hemoglobin A1C 7.4 % (<5.7)
== END 2024-06-14 11:00 | disposition home or self-care (01) ==
LOC: ANHGOSHLAB 10:59
PROVIDERS: PCP Family Medicine; Visit Provider Family Medicine
DX: E53.8 Deficiency of other specified B group vitamins (principal); E11.9 Type 2 diabetes mellitus without complications; F03.90 Unspecified dementia, unspecified severity, without behavioral disturbance, psychotic disturbance, mood disturbance, and anxiety; I10 Essential (primary) hypertension; E78.5 Hyperlipidemia, unspecified; E55.9 Vitamin D deficiency, unspecified
CPT/HCPCS: 36415; 80053; 80061; 82043; 82306; 82607; 83036; 84443; 85025

== ENCOUNTER 2024-06-14 11:14 | Outpatient (CLI) | payer MEDICARE, SELFPAY ==
--- NOTE | ~2024-06-14 | XR_ITS ---
XR chest 2V 06/14/2024 11:50 Indication: Cough Procedure: 2 view chest Comparison: Comparison to multiple prior studies sequentially, with oldest reviewed study dated 01/2022. Findings: Heart size normal. Mildly elevated left diaphragm unchanged. Heart size normal. There are s urgical clips overlying the right lower thorax. No focal air space disease, pulmonary edema, pleural effusion or suspected pneumothorax. Calcified granuloma right upper lobe. Impression: 1: No acute cardiopulmonary disease. Reviewed, dictated and finalized at location B. DONTIST Impression: 1: No acute cardiopulmonary disease.
== END 2024-06-14 11:15 | disposition home or self-care (01) ==
LOC: GOSHIMG 11:15
PROVIDERS: PCP Family Medicine; Visit Provider Family Medicine
DX: R05.9 Cough, unspecified (principal); J06.9 Acute upper respiratory infection, unspecified
CPT/HCPCS: 71046

== ENCOUNTER 2024-08-14 17:26 | Emergency (ER) | payer MEDICARE, SELFPAY ==
[2024-08-14] VITALS (7 sets, daily range): BP systolic 162–169; BP diastolic 81–95; PULSE 88–101; RESP 16–26; TEMP 36.6; O2SAT 93–98
--- NOTE | ~2024-08-14 | XR_ITS ---
EXAMINATION: XR chest 2V Exam Date/Time: 08/14/2024 18:39 CDT HISTORY: cough Comparison: 04/14/2025. RESULT: Lines, tubes, and devices: Surgical clips over the right breast. Lungs and pleura: Senescent change. Calcified right midlung granuloma. Peripheral right lung scar. O therwise clear. Cardiomediastinal silhouette: Stable. Mildly elevated left hemidiaphragm. Other: No acute osseous or upper abdominal finding. IMPRESSION: No acute cardiopulmonary process. Reviewed, dictated and finalized at location K.
--- NOTE | 2024-08-14 18:10 | ED_ITS ---
HPI - Weakness General Chief complaint: Weakness <Shahla Alcala PA-C - Last Filed: 08/17/24 17:08> Stated complaint: weakness <Shahla Alcala PA-C - Last Filed: 08/17/24 17:08> Time Seen by Provider: 08/14/24 18:10 <Shahla Alcala PA-C - Last Filed: 08/17/24 17:08> Focused HPI: This is a 83 year old female that presents to the ER for feeling generally unwell. Reports rhinorrhea, sore throat, subjective fevers, cough, congestion. Ongoing over the last couple of days. GENERAL: Elderly, well-nourished, and in no acute distress. HEAD: Normocephalic, atraumatic. CHEST: Clear to auscultation. ?No respiratory distress. HEART: Regular rate and rhythm.? NEURO: ?Alert and oriented x3. Patient screened in triage and initial orders placed.? ?Additional care and disposition to be based upon?diagnostic testing and treatment. <Shahla Alcala PA-C - Last Filed: 08/17/24 17:08> Focused HPI: This is a 83 year old female that presents to the ER for feeling generally unwell. Reports rhinorrhea, sore throat, subjective fevers, cough, congestion. Ongoing over the last couple of days. GENERAL: Elderly, well-nourished, and in no acute distress. HEAD: Normocephalic, atraumatic. CHEST: Clear to auscultation. ?No respiratory distress. HEART: Regular rate and rhythm.? NEURO: ?Alert and oriented x3. Patient screened in triage and initial orders placed.? ?Additional care and disposition to be based upon?diagnostic testing and treatment. Agree with triage assessment. Has been who is present with the patient at bedside resides with her at [facility] and states that she has been having this cough for a while and he is concerned of a pneumonia. He also states that patient tends to not drink a lot of water despite him telling her and was concerned that she is dehydrated. Patient denies a history of COPD/CHF. Currently denying any chest pain, abdominal pain, nausea vomiting or diarrhea. <Moreno Anderson MD - Last Filed: 08/14/24 21:02> Related Data Home medications: Home Medications ?Medication ?Instructions ?Recorded ?Confirmed ?Last Taken ?Type cholecalciferol (vitamin D3) 50 50 mcg PO DAILY 07/05/19 07/30/24 07/30/23 09:00 History mcg (2,000 unit) capsule latanoprost 0.005 % eye drops 1 drop ophthalmic (eye) DAILY 07/05/19 07/30/24 07/30/23 09:00 History memantine 10 mg tablet 10 mg PO BID 01/16/21 07/30/24 07/30/23 17:00 History clobetasol 0.05 % scalp solution 1 applic topical DAILY 01/25/22 07/30/24 Unknown History timolol 0.5 % eye drops 1 drp EACH EYE DAILY 06/14/23 07/30/24 07/30/23 09:00 History fluticasone propionate 50 2 spray intranasal DAILY PRN 06/14/24 07/30/24 Unknown History mcg/actuation nasal spray,suspension (Allergy Relief (fluticasone)) ketoconazole 2 % shampoo 1 applic topical 2XW 06/14/24 07/30/24 Unknown History donepezil 5 mg tablet 5 mg PO QHS 07/30/24 07/30/24 Unknown History <Shahla Alcala PA-C - Last Filed: 08/17/24 17:08> Allergies/Adverse reactions: Allergies Allergy/AdvReac Type Severity Reaction Status Date / Time Penicillins Allergy Mild HIVES Verified 07/30/24 14:36 <Shahla Alcala PA-C - Last Filed: 08/17/24 17:08> Review of Systems 2 Review of Systems: All systems are reviewed and are negative unless stated otherwise in the HPI. <Moreno Anderson MD - Last Filed: 08/14/24 21:02> [facility] Past Medical History Medical History: Medical History Type 2 diabetes mellitus without complications Essential (primary) hypertension Fracture of hip (~07/2023) Glaucoma Intraductal papillary mucinous neoplasm Irritable bowel syndrome Cancer of right breast (12/2002) Status post lumpectomy and radiation therapy. Chronic venous insufficiency of lower extremity Pancreatic atrophy Chronic diarrhea Vesicular eczema of hands and feet Dementia Osteopenia after menopause Prediabetes Dyslipidemia Hypothyroidism (acquired) Colon polyps Vitamin D deficiency <Shahla Alcala PA-C - Last Filed: 08/17/24 17:08> Surgical History Surgical History: Surgical History Status post hip surgery (~07/13/23) Right hip pinning History of bilateral cataract extraction (06/2017) History of lumpectomy of right breast (2002) History of sacrocolpopexy (2016) History of total hysterectomy (1997) History of appendectomy (1951) <Shahla Alcala PA-C - Last Filed: 08/17/24 17:08> Family History Family History: Family History Other Hypertension <Shahla Alcala PA-C - Last Filed: 08/17/24 17:08> Social History Social History: Social History Social History: Surrogate medical decision maker: Zack Clemens, son. Code status: Full code. Smoking status: Never smoker Second hand tobacco smoke exposure: No Alcohol intake: never Substance use: never Substance use type: does not use Do You Feel Safe in your Home?: Yes Lack of Transportation: No Lack of Food: Never True Current Housing: I Have Housing Concerned About Future Housing: No Difficulty Paying Gas/Electric Bills: No Difficulty Paying for Meds: No Currently Unemployed: No Education: Master's Degree or Higher Difficulty w/ Childcare or Family Care: No Living arrangements: with family Additional living arrangements comments: Lives with spouse in independent living at [facility]. Occupation/Education: retired Spiritual care concerns: No <Shahla Alcala PA-C - Last Filed: 08/17/24 17:08> Exam 2 Narrative: General: Alert, awake, afebrile, in no acute distress, dry cough. HEENT: PERRL, no rhinorrhea, no post nasal drip, oropharynx clear. Neck: Trachea midline, no JVD, no lymphadenopathy. Cardiovascular: Regular rate and rhythm, no murmurs, rubs or gallops, no peripheral edema. Respiratory: Clear to auscultation bilaterally, no tachypnea, no wheezing, no rhonchi, no rubs, no respiratory distress. Abdomen: Soft, nontender, nondistended, no rebound, no guarding, no peritoneal signs. Musculoskeletal: No joint swelling or deformity, normal muscle tone. Skin: No rashes or petechia, no signs of infection. Psychiatric: Alert and oriented, normal behavior and judgment for situation. Neurological: Alert and oriented to person, place, and time. Follows all commands. No focal deficits, speech is clear and fluent. <Moreno Anderson MD - Last Filed: 08/14/24 21:02> Course Vital Signs Vital signs: Vital Signs Temperature 97.8 F 08/14/24 17:30 Pulse Rate 101 H 08/14/24 17:30 Respiratory Rate 16 08/14/24 17:30 Blood Pressure 162/81 H 08/14/24 17:30 Pulse Oximetry 94 08/14/24 17:30 Temperature 97.8 F 08/14/24 17:30 Pulse Rate 92 08/14/24 21:31 Respiratory Rate 26 H 08/14/24 21:31 Blood Pressure 169/95 H 08/14/24 21:31 Pulse Oximetry 95 08/14/24 21:31 <Shahla Alcala PA-C - Last Filed: 08/17/24 17:08> Vital Signs Temperature 97.8 F 08/14/24 17:30 Pulse Rate 101 H 08/14/24 17:30 Respiratory Rate 16 08/14/24 17:30 Blood Pressure 162/81 H 08/14/24 17:30 Pulse Oximetry 94 08/14/24 17:30 Temperature 97.8 F 08/14/24 17:30 Pulse Rate 92 08/14/24 21:31 Respiratory Rate 26 H 08/14/24 21:31 Blood Pressure 169/95 H 08/14/24 21:31 Pulse Oximetry 95 08/14/24 21:31 <Moreno Anderson MD - Last Filed: 08/14/24 21:02> MDM - Weakness MDM Narrative Medical decision making narrative: The patient was evaluated by myself in the emergency department. History is obtained from patient who is an independent historian and physical exam was performed. External medical records were reviewed at this time. IV was established and pertinent tests were ordered. Laboratory results obtained revealing no acute process. Normal kidney function. Viral swabs negative for COVID/influenza/RSV. Imaging studies obtained included CXR which was independently interpreted by me revealing no acute cardiopulmonary process, which is pending final radiology interpretation. Differential diagnosis considerations include acute viral syndrome, infectious process such as pneumonia, dehydration, electrolyte derangements, BLAIRE. Comorbidities impacting this visit include none. I have evaluated and discussed social determinants of health with the patient that could potentially impact subsequent diagnosis and treatment plans. On repeat assessment of the patient, reevaluation revealed that the patient is doing well and is in no acute distress. Patient symptoms have improved since she arrived to our emergency department. Repeat vital signs were all reviewed and noted to be stable. Differential diagnosis and treatment plan were discussed with the patient at bedside. Patient agrees with discussion and after shared medical decision making agrees with discharge. All questions were answered to the patient's satisfaction. Patient will follow up with her PCP in 3-5 days. Patient was provided with strict return precautions and instructed to return to the emergency department if any new or worsening symptoms develop. The patient was discharged in stable condition. <Moreno Anderson MD - Last Filed: 08/14/24 21:02> Lab Data Result diagrams: 08/14/24 18:36 08/14/24 18:36 <Shahla Alcala PA-C - Last Filed: 08/17/24 17:08> Labs: Lab Results 08/14/24 Range/Units 18:36 WBC 5.9 (4.5-10.0) K/mm3 RBC 4.22 (4.2-5.4) M/mm3 Hgb 12.7 (12.0-15.0) g/dL Hct 37.8 (37.0-47.0) % MCV 89.6 (80-100) fl MCH 30.1 (26-34) pg MCHC 33.6 (32-36) g/dl RDW 13.1 (11.5-14.5) % Plt Count 176 (150-375) k/mm3 MPV 10.4 (7.4-10.4) fl Immature Gran % (Auto) 0.3 (0-0.5) % Neut % (Auto) 76.3 H (45.5-73.1) % Lymph % (Auto) 10.5 L (18.3-44.2) % [place] % (Auto) 11.7 H (2.6-8.5) % Eos % (Auto) 0.5 (0-4.4) % Baso % (Auto) 0.7 (0.2-1.2) % Lymph # (Auto) 0.62 L (0.9-3.2) K/mm3 [place] # (Auto) 0.7 H (0.1-0.6) K/mm3 Eos # (Auto) 0.0 (0-0.3) K/mm3 Baso # (Auto) 0.0 (0.0-0.1) K/mm3 Abs Immat Gran (auto) 0.02 (0.00-0.031) K/mm3 Absolute Neuts (auto) 4.5 (1.3-6.7) K/mm3 Absolute Nucleated RBC 0.000 (0.0-0.012) K/mm3 Nucleated RBC % 0.0 (0.0-0.2) % Sodium 136 L (137-145) mmol/L Potassium 3.7 (3.4-5.0) mmol/L Chloride 100 (98-107) mmol/L Carbon Dioxide 27 (22-30) mmol/L Anion Gap 9 (4-12) mmol/L BUN 12 D (7-17) mg/dL Creatinine 0.63 L (0.7-1.0) mg/dL Estim Creat Clear Calc Not Reportable Estimated GFR > 60 (59 - ) Glucose 153 H (65-110) mg/dL Calcium 9.4 (8.4-10.2) mg/dL Total Bilirubin 1.0 (0.2-1.3) mg/dL AST 19 (14-36) U/L ALT 18 (6-35) U/L Alkaline Phosphatase 117 (38-126) U/L Total Protein 7.0 (6.3-8.2) g/dL Albumin 4.3 (3.5-5.1) g/dL Influenza A (RT-PCR) Negative (Negative) Influenza B (RT-PCR) Negative (Negative) RSV (RT-PCR) Negative (Negative) SARS-CoV-2 RNA (RT-PCR) Negative (Negative) <Shahla Alcala PA-C - Last Filed: 08/17/24 17:08> Lab Results 08/14/24 Range/Units 18:36 WBC 5.9 (4.5-10.0) K/mm3 RBC 4.22 (4.2-5.4) M/mm3 Hgb 12.7 (12.0-15.0) g/dL Hct 37.8 (37.0-47.0) % MCV 89.6 (80-100) fl MCH 30.1 (26-34) pg MCHC 33.6 (32-36) g/dl RDW 13.1 (11.5-14.5) % Plt Count 176 (150-375) k/mm3 MPV 10.4 (7.4-10.4) fl Immature Gran % (Auto) 0.3 (0-0.5) % Neut % (Auto) 76.3 H (45.5-73.1) % Lymph % (Auto) 10.5 L (18.3-44.2) % [place] % (Auto) 11.7 H (2.6-8.5) % Eos % (Auto) 0.5 (0-4.4) % Baso % (Auto) 0.7 (0.2-1.2) % Lymph # (Auto) 0.62 L (0.9-3.2) K/mm3 [place] # (Auto) 0.7 H (0.1-0.6) K/mm3 Eos # (Auto) 0.0 (0-0.3) K/mm3 Baso # (Auto) 0.0 (0.0-0.1) K/mm3 Abs Immat Gran (auto) 0.02 (0.00-0.031) K/mm3 Absolute Neuts (auto) 4.5 (1.3-6.7) K/mm3 Absolute Nucleated RBC 0.000 (0.0-0.012) K/mm3 Nucleated RBC % 0.0 (0.0-0.2) % Sodium 136 L (137-145) mmol/L Potassium 3.7 (3.4-5.0) mmol/L Chloride 100 (98-107) mmol/L Carbon Dioxide 27 (22-30) mmol/L Anion Gap 9 (4-12) mmol/L BUN 12 D (7-17) mg/dL Creatinine 0.63 L (0.7-1.0) mg/dL Estim Creat Clear Calc Not Reportable Estimated GFR > 60 (59 - ) Glucose 153 H (65-110) mg/dL Calcium 9.4 (8.4-10.2) mg/dL Total Bilirubin 1.0 (0.2-1.3) mg/dL AST 19 (14-36) U/L ALT 18 (6-35) U/L Alkaline Phosphatase 117 (38-126) U/L Total Protein 7.0 (6.3-8.2) g/dL Albumin 4.3 (3.5-5.1) g/dL Influenza A (RT-PCR) Negative (Negative) Influenza B (RT-PCR) Negative (Negative) RSV (RT-PCR) Negative (Negative) SARS-CoV-2 RNA (RT-PCR) Negative (Negative) <Moreno Anderson MD - Last Filed: 08/14/24 21:02> Imaging Data Radiologist's impression: ITS Impressions Chest X-Ray 08/14/24 18:59 IMPRESSION: No acute cardiopulmonary process. <Shahla Alcala PA-C - Last Filed: 08/17/24 17:08> Critical Care Time Critical Care Time Critical Care Time: No <Shahla Alcala PA-C - Last Filed: 08/17/24 17:08> Discharge Plan Discharge Clinical Impression: URI (upper respiratory infection) Qualifiers: URI type: unspecified URI Qualified Code(s): J06.9 - Acute upper respiratory infection, unspecified <Shahla Alcala PA-C - Last Filed: 08/17/24 17:08> Patient Disposition: Home, Self-Care <Shahla Alcala PA-C - Last Filed: 08/17/24 17:08> Condition: Stable <Shahla Alcala PA-C - Last Filed: 08/17/24 17:08> Instructions: Antibiotic Form, Upper Respiratory Infection (DC) <Shahla Alcala PA-C - Last Filed: 08/17/24 17:08> Additional Instructions: Please follow-up with your family doctor within the next 3-5 days. Return to the emergency department if any new or worsening symptoms develop. <Shahla Alcala PA-C - Last Filed: 08/17/24 17:08> Patient Language: Austrian <Shahla Alcala PA-C - Last Filed: 08/17/24 17:08> Prescriptions: No Action cholecalciferol (vitamin D3) 50 mcg (2,000 unit) capsule 50 mcg PO DAILY latanoprost 0.005 % drops 1 drop EACH EYE DAILY clobetasol 0.05 % solution 1 applic topical DAILY Metamucil (with sugar) 3.4 gram/12 gram powder 1 tbsp PO DAILY Qty: 575 0RF timolol 0.5 % drops 1 drp EACH EYE DAILY Creon 24,000-76,000 -120,000 unit capsule,delayed release(DR/EC) 1 cap PO TID 30 Days Qty: 90 11RF Rx Instructions: administer with meals memantine 10 mg tablet 10 mg PO BID donepezil 5 mg tablet 5 mg PO QHS levothyroxine 88 mcg tablet 88 mcg PO DAILY Qty: 90 1RF fluticasone propionate [Allergy Relief (fluticasone)] 50 mcg/actuation spray,suspension 2 spray intranasal DAILY PRN Rx Instructions: administer into each nostril ketoconazole 2 % shampoo 1 applic topical 2XW atorvastatin 10 mg tablet 10 mg PO QHS Qty: 90 1RF estradiol 0.01 % (0.1 mg/gram) cream See Rx Instructions .ROUTE .COMPLEX Qty: 42.5 0RF Dose Instruction: INSERT 1 GRAM VAGINALLY TWICE A WEEK ON TUESDAY AND TUESDAY Rx Instructions: INSERT 1 GRAM VAGINALLY TWICE A WEEK ON TUESDAY AND TUESDAY metformin 500 mg tablet extended release 24 hr 500 mg PO QPM Qty: 100 1RF <Shahla Alcala PA-C - Last Filed: 08/17/24 17:08> Follow-up/Referrals: Leanna Baum MD [Primary Care Provider] - 3 Days <Shahla Alcala PA-C - Last Filed: 08/17/24 17:08> Time of Disposition: 20:57 <Shahla Alcala PA-C - Last Filed: 08/17/24 17:08> 20:57 <Moreno Anderson MD - Last Filed: 08/14/24 21:02>
--- OUTSIDE RECORDS SUMMARY | 2024-08-14 18:21 | XMS_ITS | Clinical Summary ---
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 42.5 g 3 05/03/20 22 Active azelastine (ASTELIN) 137 mcg (0.1 %) nasal spray 09/09/19 23 Active timolol (TIMOPTIC) 0.5 % ophthalmic solution Administer 1 drop into the left eye daily Left eye each morning 05/17/20 23 Active pancrelipase (Creon) 24,000 units of lipase capsuleIndicatio ns:exocrine pancreatic insufficiency Take 1 capsule by mouth 3 (three) times a day with meals 90 capsule 3 06/16/19 24 Active clobetasoL (TEMOVATE) 0.05 % external solution APPLY TWICE DAILY TO INFLAMED OR ITCHY AREAS IN THE SCALP WHEN NEEDED (AVOID FACE) 12/03/19 24 Active levothyroxine (SYNTHROID) 88 mcg tablet Take 1 tablet (88 mcg total) by mouth daily 11/21/19 24 Active atorvastatin (LIPITOR) 10 mg tablet Take 1 tablet (10 mg total) by mouth nightly at bedtime 01/07/20 24 Active ketoconazole (NIZORAL) 2 % shampoo SHAMPOO SCALP TWICE/WEEK.AL LOW LATHER TO SIT 3-4 MINS BEFORE RINSING.OK TO FOLLOW WITH CONDITIONER. 01/25/20 24 Active donepeziL (ARICEPT) 5 mg tabletIndication s:Dementia without behavioral disturbance (HCC) TAKE 1 TABLET BY MOUTH NIGHTLY 90 tablet 1 03/19/20 24 Active memantine (NAMENDA) 10 mg tabletIndication s:Dementia without behavioral disturbance (HCC) TAKE 1 TABLET BY MOUTH TWICE A DAY 180 tablet 07/30/19 25 Active memantine (NAMENDA) 10 mg tabletIndication s:Dementia without behavioral disturbance (HCC) TAKE 1 TABLET BY MOUTH TWICE A DAY 180 tablet 05/01/20 24 025 Discontinued Active Problems Problem Noted Date Diagnosed Date Abnormal weight loss 05/04/2023 Disease of pancreas 05/04/2023 Other diseases of stomach and duodenum Mixed conductive and sensori neural hearing loss of right ear 11/30/2021 Otalgia 11/30/2021 Diplopia 08/27/2021 Prolapse of anterior vaginal wall 02/26/2021 Assessment & Plan (05/03/2022 9:28 AM DIDACTIC PROGRAM IN DIETETICS DIRECTOR): - stable stage 2 anterior wall prolapse - she denies bothersome symptoms - she would like to continue with expectant management at this time and will notify the office if she develops any bothersome pain/pressure - follow up in one year Assessment & Plan (02/26/2021 12:11 PM CDT): - stage 2 anterior wall prolapse - she is overall not bothered by this - she is agreeable to expectant management at this time and will notify the office if she develops any bothersome pain/pressure - follow up in one year Dementia without behavioral disturbance 10/30/19 21 Memory disturbance 08/25/2020 Pelvic floor dysfunction in female 10/05/2018 Pelvic pressure in female 10/05/2018 Colon cancer screening 07/11/2018 Overview (07/11/2018): Added automatically from request for surgery [id number] History of malignant neoplasm of breast 07/25/19 18 Abnormal finding on mammography 07/22/2017 Chronic constipation 02/28/2017 Hematuria 10/13/2016 Vaginal atrophy 01/16/2016 Assessment & Plan (05/03/2022 9:29 AM DIDACTIC PROGRAM IN DIETETICS DIRECTOR): - continue twice weekly vaginal estrogen, Rx renewed Assessment & Plan (02/26/2021 12:12 PM CDT): - continue twice weekly vaginal estrogen, Rx renewed Osteoporosis 01/16/2016 Hypercholesterolemia 01/16/2016 Malignant neoplasm of breast 10/04/2012 Malignant neoplasm of upper-outer quadrant of fe male breast 04/14/2011 Osteopenia 04/14/2011 Chronic suppurative otitis media 03/03/2011 BPPV (benign paroxysmal posi tional vertigo), unspecified laterality 01/20/2011 HL (hearing loss) Immunizations Immunization Administration Dates Next Due Hep B Vaccine 09/14/1999,03/23/1999,02/16/1999 Influenza, Trivalent, High D ose, Split, Preservative Free, Intramuscular 03/30/2018 Pfizer SARS-CoV-2 Monovalent Vaccination (12+ Yrs) PURPLE 08/06/2020 Pneumococcal Conjugate PCV 13 07/21/2019 Tdap 02/04/2016 ZOSTER LIVE 06/06/2016 Surgical History Surgery Date Site/Laterality Comments WI TOTAL ABDOMINAL HYSTERECT W/WO RMVL TUBE OVARY Total Abdominal Hysterectomy - 1987 (Added by TW Conv) WI APPENDECTOMY Appendectomy - at 11 years of age (Added by TW Conv) WI UNLISTED PROCEDURE BREAST 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) VAGINAL SURGERY COLPOPEXY SACRAL Vaginal Surgery Colpopexy Sacral - (Added by TW Conv) WI BX BREAST NEEDLE CORE W/O IMAGING GUIDANCE SPX Biopsy Breast Percutaneous Needle Core - (Added by TW Conv) CATARACT EXTRACTION Medical History Medical History Date Comments Prolapse of vaginal vault af ter hysterectomy Vaginal vault prolapse after hysterectomy - (Added by TW Conv) Cystocele, midline Midline cysto britney - (Added by TW Conv) Personal history of malignan t neoplasm of breast History of malignant neoplas m of breast - History of Malignant Breast Neoplasm (Added by TW Conv) Chronic constipation Hypothyroidism Colon polyp Osteoporosis HL (hearing loss) Hyperlipidemia Glaucoma Alzheimer disease (HCC) Family History Medical History Relation Name Comments Cancer Father Reported A Hist ory Of Cancer - (Added by TW Conv) Cancer Mother Reported A Hist ory Of Cancer - (Added by TW Conv) Uterine cancer Mother Family histor y of malignant neoplasm of uterus - (Added by TW Conv) Cancer Other Reported A Hist ory Of Cancer - (Added by TW Conv) Relation Name Status Comments Father Mother Other Social History Tobacco Use Types Packs/Day Years Used Date Smoking Tobacco: Never Smokeless Tobacco: Never Alcohol Use Standard Drinks/Week Comments No 0 (1 standard drink = 0.6 oz pur e alcohol) AUDIT-C Answer Date Recorded Q1: How often do you have a drink containing alc ohol? Never 02/21/2024 Average Number of Drinks Not on file 024 Frequency of Binge Drinking Not on file 02/04 Exercise Vital Sign Answer Date Recorde d On average, how many days pe r week do you engage in moderate to strenuous exercise (like a brisk walk)? 0 days 01/14/2020 On average, how many minutes do you engage in exercise at this level? 0 min 01/14/2020 Personal Safety Answer Date Recorded Have you ever been in or are you currently in a harmful physical or emotional relationship or is someone making you feel afraid or unsafe? Denies 05/18/2023 Comments No Sex and Gender Information Value Date Recorded Sex Assigned at Not on file Legal Sex Female 12:20 PM DIDACTIC PROGRAM IN DIETETICS DIRECTOR Gender Identity Not on file Sexual Orientation Not on file Obstetrics History Last Filed Vital Signs Vital Sign Reading Time Taken Comments Blood Pressure 126/58 02/21/2024 2:21 PM CDT Pulse 71 02/21/2024 2:21 PM CDT Temperature 36.4 C (97.5 F) 09/12/2023 1:45 PM CDT Respiratory Rate 16 09/12/2023 1:45 PM CDT Oxygen Saturation 98% 09/12/2023 1:45 PM CDT Inhaled Oxygen Concentration - - Weight 55.3 kg (121 lb 14.6 oz) 04/09/2024 1:36 PM DIDACTIC PROGRAM IN DIETETICS DIRECTOR Height 167.5 cm (5' 5.95 ) 04/09/2024 1:36 PM CS T Body Mass Index 19.71 04/09/2024 1:36 PM DIDACTIC PROGRAM IN DIETETICS DIRECTOR Plan of Treatment Health Maintenance Due Date Last Done Comments Depression Screening 1940 Well Visit 65+ 08/21/2004 Zoster Vaccine (2 of 3) 08/01/2016 06/06/2016 Osteoporosis Screening-Bone Density Scan 05/12/2019 05/12/2017, 11/25/2015, 10/03/2012 Pneumococcal vaccine 65+ (2 of 2 - PPSV23) 07/21/2020 07/21/2019 Fall Risk Assessment 05/18/2024 05/18/2023 Covid-19 Vaccine (3 - season) 09/11/202401/2024, 08/06/2020 DTaP/Tdap/Td Vaccine (2 - Td or Tdap) 02/03/2026 Hepatitis B Screening Completed 09/14/1999 , 03/23/1999, 02/16/1999 Influenza Vaccine Completed 03/13/2024, 03/30/2018 Procedures Procedure Name Priority Date/Time Associated Diagnosis Comments DEXA AXIAL SKELETON BONE DENSITY 1 OR MORE SITES Routine 05/12/2017 5:03 PM DIDACTIC PROGRAM IN DIETETICS DIRECTOR from Last 3 Months or Most Recently Relevant to Health Maintenance Results * Dexa Axial Skeleton Bone Density 1 or 2 Site (05/12/2017 5:03 PM DIDACTIC PROGRAM IN DIETETICS DIRECTOR) Anatomical Region Laterality Modality N/A Nuclear Medicine 05/12/2017 5:03 PM DIDACTIC PROGRAM IN DIETETICS DIRECTOR Narrative 05/12/2017 6:28 PM DIDACTIC PROGRAM IN DIETETICS DIRECTOR NICHOLAS LOWERY M.D. SUNITA DARNELL M.D.PHD. FINAL REPORT The radiology attending physician has personally reviewed this study, and has reviewed and/or edited this written report and agrees with it. ACC# Date Time Exam [id number] May 12, 2017 11:03:00 [id number] DEXA Axial 1 or 2 sites EXAMINATION: BONE DENSITOMETRY OF THE SPINE AND HIP DATE OF STUDY: 05/12/2017 HISTORY: 76-year-old postmenopausal woman who had a total hysterectomy at the age of 47. She is also been treated for breast cancer. She is being treated with supplemental calcium and vitamin D. Evaluate bone mineral density. FINDINGS (SPINE): The bone mineral density of L1-L4 was assessed by dual-energy x-ray absorptiometry. The average bone mineral density within this region is 0.956 gm/sq-cm. This is 1.7 standard deviations above the mean of the average bone mineral density for age- and gender-matched subjects (the Z-score). It is 0.8 standard deviations below the mean peak bone mineral density in young adults (the T-score). FINDINGS (FEMORAL NECK): The bone mineral density of the left femoral neck was assessed by dual-energy x-ray absorptiometry. The average bone mineral density within the femoral neck region is 0.666 gm/sq-cm. This is 0.5 standard deviations above the mean of the average bone mineral density for age- and gender-matched subjects (the Z-score). It is 1.7 standard deviations below the mean peak bone mineral density in young adults (the T-score). FINDINGS (TOTAL HIP): The bone mineral density of the left hip was assessed by dual-energy x-ray absorptiometry. The average bone mineral density within the total hip region is 0.842 gm/sq-cm. This is 1.1 standard deviations above the mean of the average bone mineral density for age- and gender-matched subjects (the Z-score). It is 0.8 standard deviations below the mean peak bone mineral density in young adults (the T-score). SUMMARY OF CURRENT RESULTS: Region BMD T-score Z-score AP Spine (L1-L4) 0.956 -0.8 1.7 Femoral Neck (Left) 0.666 -1.7 0.5 Total Hip (Left) 0.842 -0.8 1.1 COMPARISON WITH PREVIOUS RESULTS Region Age BMD T-score BMD Change BMD Change Exam Date g/cm2 vs Baseline vs Previous AP Spine (L1-L4) 05/12/2017 76 0.956 -0.8 -2.7%# -2.7%12/31/1999 59 0.983 -0.6 Femoral Neck(Left) 05/12/2017 76 0.666 -1.7 0.2%# 0.2%# 12/31/1999 59 0.664 -1.7 Total Hip(Left) 05/12/2017 76 0.842 -0.8 -7.1%# -7.1%# 12/31/1999 59 0.907 -0.3 *Denotes significance at 95% confidence level, LSC for AP Spine # Denotes dissimilar scan types or analysis methods IMPRESSION: 1. The bone mineral density of the lumbar spine is normal. There has been a statistically significant decrease in bone mineral density since the baseline examination of 12/31/1999. 2. The bone mineral density of the left femoral neck is mildly decreased. There has been no significant change in bone mineral density since the baseline examination of 12/31/1999. 3. The bone mineral density of the left total hip is normal. There has been a statistically significant decrease in bone mineral density since the baseline examination of 12/31/1999. 4. Overall, the above findings are diagnostic of low bone mass (osteopenia) by WHO criteria. 5. Based on the FRAX fracture risk model, the 10-year probability for major osteoporotic fracture is 20% and that for hip fracture is 12%. This 10-year fracture risk estimate was calculated using the risk factors noted in the history above, along with the femoral neck bone density. FRAX is intended to help guide treatment decisions in men over age 50 and postmenopausal women with low bone mass (osteopenia). The National Osteoporosis Foundation (NOF) recommends that FDA-approved medical therapies be considered in postmenopausal women and men age 50 years and older with osteoporosis and those with low bone mass whose 10-year fracture probability by FRAX is >= 20% for major osteoporotic fracture or >= 3% for hip fracture. However, all treatment decisions require clinical judgment and consideration of individual patient factors, including patient preferences, comorbidities, previous drug use, risk factors not captured in the FRAX model (e.g., frailty, falls, vitamin D deficiency, increased bone turnover, interval significant decline in bone density) and possible under- or overestimation of fracture risk by FRAX. General comments regarding interpretation of bone density measurements: A) In children, premenopausal woman and males under age 50 not at increased risk for fractures only Z-scores, not T-scores are used to indicate risk. A Z-score above -2.0 is defined as within the expected range for age and Z-score at or less than -2.0 is below the expected range for age . A Z-score below the expected range for age in a patient with recent fractures and/or chronic corticosteroid treatment is consistent with a diagnosis of osteoporosis. B) In post menopausal women and males over 50, comparison of the measured bone mineral density with the average value in young normal subjects (the T-score ) has been found to be useful in assessing fracture risk. Fracture risk approximately doubles for each 1.0 standard deviation (SD) in individual's hip or spine bone mineral density is below the average value of young normal subjects. The World Health Organization (WHO) has defined T-scores of -1.0 to -2.5 as diagnostic of low bone mass (OSTEOPENIA), and T-scores of -2.5 or lower to be diagnostic of OSTEOPOROSIS, based on the site of lowest bone density. Note that there will be a change in reporting format and reference databases as patients move from the younger population (group A) to the older population (group B) The National Osteoporosis Foundation (www.nof.org) recommends adequate intake of calcium and vitamin D and regular weight-bearing exercise in all patients. They recommend pharmacologic treatment in postmenopausal women and men age 50 and older presenting with any of the followin) Osteoporosis, after appropriate evaluation to exclude secondary causes. 2) A hip or vertebral (clinical or radiographic) fracture, regardless of the bone density. 3) Low bone mass (Osteopenia) and one or more of: other prior fractures, secondary causes associated with high risk of fracture (such as glucocorticoid use or total immobilization), or computed high risk of fracture (10-yr probability of hip fracture >= 3% or a 10-yr probability of any major osteoporosis-related fracture >= 20% based on the [place].-adapted WHO algorithm), available at http://www.shef.ac.uk/FRAX). Electronically signed by: Nicholas Lowery M.D. Requested By: Miri Minaya M.D. Dictated By: SUNITA DARNELL M.D.PHD. on May 12 2017 11:25A This document has been electronically signed by: NICHOLAS LOWERY M.D. on May 12 2017 12:26P [id number] LOWERY M.D. SUNITA DARNELL M.D.PHD. FINAL REPORT The radiology attending physician has personally reviewed this study, and has reviewed and/or edited this written report and agrees with it. Attending: ZOYA LANDRY Requesting: Miri Minaya Requesting Fax: Attending Fax: Attending ID: [id number] Requesting ID: [id number] Report To 1 ID: [id number] Report To 1 Name: , Report To 1 FAX: NextGen Order #: Procedure Note Miscellaneous, Not In File - 05/12/2017 NICHOLAS LOWERY M.D. SUNITA DARNELL M.D.PHD. FINAL REPORT The radiology attending physician has personally reviewed this study, and has reviewed and/or edited this written report and agrees with it. ACC# Date Time Exam [id number] May 12, 2017 11:03:00 [id number] DEXA Axial 1 or 2 sites EXAMINATION: BONE DENSITOMETRY OF THE SPINE AND HIP DATE OF STUDY: 05/12/2017 HISTORY: 76-year-old postmenopausal woman who had a total hysterectomy at the age of 47. She is also been treated for breast cancer. She is being treated with supplemental calcium and vitamin D. Evaluate bone mineral density. FINDINGS (SPINE): The bone mineral density of L1-L4 was assessed by dual-energy x-ray absorptiometry. The average bone mineral density within this region is 0.956 gm/sq-cm. This is 1.7 standard deviations above the mean of the average bone mineral density for age- and gender-matched subjects (the Z-score). It is 0.8 standard deviations below the mean peak bone mineral density in young adults (the T-score). FINDINGS (FEMORAL NECK): The bone mineral density of the left femoral neck was assessed by dual-energy x-ray absorptiometry. The average bone mineral density within the femoral neck region is 0.666 gm/sq-cm. This is 0.5 standard deviations above the mean of the average bone mineral density for age- and gender-matched subjects (the Z-score). It is 1.7 standard deviations below the mean peak bone mineral density in young adults (the T-score). FINDINGS (TOTAL HIP): The bone mineral density of the left hip was assessed by dual-energy x-ray absorptiometry. The average bone mineral density within the total hip region is 0.842 gm/sq-cm. This is 1.1 standard deviations above the mean of the average bone mineral density for age- and gender-matched subjects (the Z-score). It is 0.8 standard deviations below the mean peak bone mineral density in young adults (the T-score). SUMMARY OF CURRENT RESULTS: Region BMD T-score Z-score AP Spine (L1-L4) 0.956 -0.8 1.7 Femoral Neck (Left) 0.666 -1.7 0.5 Total Hip (Left) 0.842 -0.8 1.1 COMPARISON WITH PREVIOUS RESULTS Region Age BMD T-score BMD Change BMD Change Exam Date g/cm2 vs Baseline vs Previous AP Spine (L1-L4) 05/12/2017 76 0.956 -0.8 -2.7%# -2.7%# 12/31/1999 59 0.983 -0.6 Femoral Neck(Left) 05/12/2017 76 0.666 -1.7 0.2%# 0.2%# 12/31/1999 59 0.664 -1.7 Total Hip(Left) 05/12/2017 76 0.842 -0.8 -7.1%# -7.1%# 12/31/1999 59 0.907 -0.3 *Denotes significance at 95% confidence level, LSC for AP Spine # Denotes dissimilar scan types or analysis methods IMPRESSION: 1. The bone mineral density of the lumbar spine is normal. There has been a statistically significant decrease in bone mineral density since the baseline examination of 12/31/1999. 2. The bone mineral density of the left femoral neck is mildly decreased. There has been no significant change in bone mineral density since the baseline examination of 12/31/1999. 3. The bone mineral density of the left total hip is normal. There has been a statistically significant decrease in bone mineral density since the baseline examination of 12/31/1999. 4. Overall, the above findings are diagnostic of low bone mass (osteopenia) by WHO criteria. 5. Based on the FRAX fracture risk model, the 10-year probability for major osteoporotic fracture is 20% and that for hip fracture is 12%. This 10-year fracture risk estimate was calculated using the risk factors noted in the history above, along with the femoral neck bone density. FRAX is intended to help guide treatment decisions in men over age 50 and postmenopausal women with low bone mass (osteopenia). The National Osteoporosis Foundation (NOF) recommends that FDA-approved medical therapies be considered in postmenopausal women and men age 50 years and older with osteoporosis and those with low bone mass whose 10-year fracture probability by FRAX is >= 20% for major osteoporotic fracture or >= 3% for hip fracture. However, all treatment decisions require clinical judgment and consideration of individual patient factors, including patient preferences, comorbidities, previous drug use, risk factors not captured in the FRAX model (e.g., frailty, falls, vitamin D deficiency, increased bone turnover, interval significant decline in bone density) and possible under- or overestimation of fracture risk by FRAX. General comments regarding interpretation of bone density measurements: A) In children, premenopausal woman and males under age 50 not at increased risk for fractures only Z-scores, not T-scores are used to indicate risk. A Z-score above -2.0 is defined as within the expected range for age and Z-score at or less than -2.0 is below the expected range for age . A Z-score below the expected range for age in a patient with recent fractures and/or chronic corticosteroid treatment is consistent with a diagnosis of osteoporosis. B) In post menopausal women and males over 50, comparison of the measured bone mineral density with the average value in young normal subjects (the T-score ) has been found to be useful in assessing fracture risk. Fracture risk approximately doubles for each 1.0 standard deviation (SD) in individual's hip or spine bone mineral density is below the average value of young normal subjects. The World Health Organization (WHO) has defined T-scores of -1.0 to -2.5 as diagnostic of low bone mass (OSTEOPENIA), and T-scores of -2.5 or lower to be diagnostic of OSTEOPOROSIS, based on the site of lowest bone density. Note that there will be a change in reporting format and reference databases as patients move from the younger population (group A) to the older population (group B) The National Osteoporosis Foundation (www.nof.org) recommends adequate intake of calcium and vitamin D and regular weight-bearing exercise in all patients. They recommend pharmacologic treatment in postmenopausal women and men age 50 and older presenting with any of the followin) Osteoporosis, after appropriate evaluation to exclude secondary causes. 2) A hip or vertebral (clinical or radiographic) fracture, regardless of the bone density. 3) Low bone mass (Osteopenia) and one or more of: other prior fractures, secondary causes associated with high risk of fracture (such as glucocorticoid use or total immobilization), or computed high risk of fracture (10-yr probability of hip fracture >= 3% or a 10-yr probability of any major osteoporosis-related fracture >= 20% based on the [place].-adapted WHO algorithm), available at http://www.shef.ac.uk/FRAX). Electronically signed by: Nicholas Lowery M.D. Requested By: Miri Minaya M.D. Dictated By: SUNITA DARNELL M.D.PHD. on May 12 2017 11:25A This document has been electronically signed by: NICHOLAS LOWERY M.D. on May 12 2017 12:26P [id number] LOWERY M.D. SUNITA DARNELL M.D.PHD. FINAL REPORT The radiology attending physician has personally reviewed this study, and has reviewed and/or edited this written report and agrees with it. Attending: ZOYA LANDRY Requesting: Miri Minaya Requesting Fax: Attending Fax: Attending ID: [id number] Requesting ID: [id number] Report To 1 ID: [id number] Report To 1 Name: , Report To 1 FAX: NextGen Order #: Miri Minaya MD IMG DXA PROCEDURES Final Res ult from Last 3 Months or Most Recently Relevant to Health Maintenance Insurance [facility] Address: [facility] [id number] [place] [id number] [facility] MEDICARE [employer] MEDICARE Advance Directives For more information, please contact: [phone] * Full Code (Latest Code Status on File) Date Activated Date Inactivated Comments 05/18/2023 9:12 AM 05/18/2023 3:25 PM * Full Code Date Activated Date Inactivated Comments 07/31/2018 10:10 AM 07/31/2018 4:02 PM Care Teams Tie Layer Relationship Specialty Start Date End Date Patrice Baum MD PCP - General Family Practice 07/11/18
--- OUTSIDE RECORDS SUMMARY | 2024-08-14 18:21 | XMS_ITS | Referral Summary ---
Author Organization [facility] al Address [address] [place] [address] Care Team Providers Care Fire Fighter [employer] Name Role Phone Patrice Baum MD Primary Care Provider Allergies Active Allergy Reactions Criticality Noted Date Comments Penicillin Hives Medium Reaction: HIVES, Medications latanoprost (XALATAN) 0.005 % ophthalmic solution Administer 1 drop into both eyes nightly 07/24/19 19 Active levothyroxine (SYNTHROID, LEVOTHROID) 50 mcg tablet Take 1 tablet (50 mcg total) by mouth flight director before breakfast 07/04/19 19 Active fluticasone propionate [...] 02/26/2021 Assessment & Plan (05/03/2022 9:28 AM HAT MAKER): - stable stage 2 anterior wall prolapse [...] (07/11/2018): Added automatically from request for surgery [id number] History of malignant neoplasm of breast 07/25/19 18 Abnormal finding on mammography 07/22/2017 Chronic constipation 02/28/2017 Hematuria 10/13/2016 Vaginal atrophy 01/16/2016 Assessment & Plan (05/03/2022 9:29 AM HAT MAKER): - continue twice weekly vaginal estrogen, Rx [...] 13 07/21/2019 Tdap 02/04/2016 ZOSTER LIVE 06/06/2016 Social History Tobacco Use Types Packs/Day Years [...] on file Legal Sex Female 12:20 PM HAT MAKER Gender Identity Not on file Sexual Orientation Not on file Last Filed Vital Signs Vital Sign Reading Time Taken Comments Blood Pressure 126/58 02/21/2024 2:21 PM CDT Pulse 71 02/21/2024 2:21 PM CDT Temperature 36.4 C (97.5 F) 09/12/2023 1:45 PM CDT Respiratory Rate 16 09/12/2023 1:45 PM CDT Oxygen Saturation 98% 09/12/2023 1:45 PM CDT Inhaled Oxygen Concentration - - Weight 55.3 kg (121 lb 14.6 oz) 04/09/2024 1:36 PM HAT MAKER Height 167.5 cm (5' 5.95 ) 04/09/2024 1:36 PM CS T Body Mass Index 19.71 04/09/2024 1:36 PM HAT MAKER Plan of Treatment Not on file Procedures Procedure Name Priority Date/Time Associated Diagnosis Comments DEXA AXIAL SKELETON BONE DENSITY 1 OR MORE SITES Routine 05/12/2017 5:03 PM HAT MAKER from Last 3 Months or Most Recently Relevant to Health Maintenance Results * Dexa Axial Skeleton Bone Density 1 or 2 Site (05/12/2017 5:03 PM HAT MAKER) Anatomical Region Laterality Modality N/A Nuclear Medicine 05/12/2017 5:03 PM HAT MAKER Narrative 05/12/2017 6:28 PM HAT MAKER NICHOLAS LOWERY M.D. SUNITA DARNELL M.D.PHD. FINAL REPORT The radiology attending physician has personally reviewed this study, and has reviewed and/or edited this written report and agrees with it. ACC# Date Time Exam [id number] May 12, 2017 11:03:00 [id number] DEXA Axial 1 or 2 sites EXAMINATION: [...] LOWERY M.D. on May 12 2017 12:26P [id number] MESSINA M.D.PHD. FINAL REPORT The radiology attending physician has personally reviewed this study, and has reviewed and/or edited this written report and agrees with it. Attending: ZOYA LANDRY Requesting: Miri Minaya Requesting Fax: Attending Fax: Attending ID: [id number] Requesting ID: [id number] Report To 1 ID: [id number] Report To 1 Name: , Report To 1 FAX: NextGen Order #: Procedure Note Miscellaneous, Not In File - 05/12/2017 NICHOLAS LOWERY M.D. SUNITA DARNELL M.D.PHD. FINAL REPORT The radiology attending physician has personally reviewed this study, and has reviewed and/or edited this written report and agrees with it. ACC# Date Time Exam [id number] May 12, 2017 11:03:00 [id number] DEXA Axial 1 or 2 sites EXAMINATION: [...] LOWERY M.D. on May 12 2017 12:26P [id number] LOWERY M.D. SUNITA DARNELL M.D.PHD. FINAL REPORT The radiology attending physician has personally reviewed this study, and has reviewed and/or edited this written report and agrees with it. Attending: ZOYA ALNDRY Requesting: Miri Minaya Requesting Fax: Attending Fax: Attending ID: [id number] Requesting ID: [id number] Report To 1 ID: [id number] Report To 1 Name: , Report To 1 FAX: NextGen Order #: Miri Minaya MD IMG DXA PROCEDURES Final Res ult from Last 3 Months or Most Recently Relevant to Health Maintenance Insurance [facility] Advance Directives For more information, please contact: [phone] * Full Code (Latest Code Status on File) Date Activated Date Inactivated Comments 05/18/2023 9:12 AM 05/18/2023 3:25 PM * Full Code Date Activated Date Inactivated Comments 07/31/2018 10:10 AM 07/31/2018 4:02 PM Care Teams Fire Fighter [employer] Relationship Specialty Start Date End Date Patrice Baum MD PCP - General Family Practice 07/11/18
--- OUTSIDE RECORDS SUMMARY | 2024-08-14 18:21 | XMS_ITS | Encounter Summary ---
Author Organization [facility] Address [address] [place] [address] Phone Care Team Providers Care Battery Filler Name Role Phone Patrice Baum MD Primary Care Provider Encounter Details Date Type Department Care Team (Latest Contact Info) Description 04/27/2023 Orders Only [facility] Scanning, Provider Social History Tobacco Use Types Packs/Day Years Used Date Smoking Tobacco: Never Smokeless Tobacco: Never Alcohol Use Standard Drinks/Week Comments No 0 (1 standard drink = 0.6 oz pur e alcohol) AUDIT-C Answer Date Recorded Q1: How often do you have a drink containing alc ohol? Never 08/25/2020 Average Number of Drinks Not on file 021 Q3: How often do you have si x or more drinks on one occasion? Never 08/25/2020 Exercise Vital Sign Answer Date Recorde d On average, how many days pe r week do you engage in moderate to strenuous exercise (like a brisk walk)? 0 days 01/14/2020 On average, how many minutes do you engage in exercise at this level? 0 min 01/14/2020 Comments No Sex and Gender Information Value Date Recorded Sex Assigned at Not on file Legal Sex Female 12:20 PM STATIONS SUPERINTENDENT Gender Identity Not on file Sexual Orientation Not on file documented as of this encounter Plan of Treatment Not on file documented as of this encounter Procedures Procedure Name Priority Date/Time Associated Diagnosis Comments SCAN - RADIOLOGY/IMAGING 04/27/2023 documented in this encounter Results * SCAN - RADIOLOGY/IMAGING (04/27/2023) Anatomical Region Laterality Modality Other us Provider Scanning Final Result documented in this encounter Visit Diagnoses Not on filedocumented in this encounter Care Teams Battery Filler Relationship Specialty Start Date End Date Patrice Baum MD PCP - General Family Practice 07/11/18 documented as of this encounter
[2024-08-14 18:42] LABS: Basophils Percent Auto 0.7 % (0.2-1.2); Eosinophils Percent Auto 0.5 % (0-4.4); Hematocrit 37.8 % (37.0-47.0); Hemoglobin 12.7 g/dL (12.0-15.0); Immature Granulocyte Absolute 0.02 K/mm3 (0.00-0.031); Immature Granulocyte Percent A 0.3 % (0-0.5); Lymphocytes Absolute Auto 0.62 K/mm3 (0.9-3.2); Lymphocytes Percent Auto 10.5 % (18.3-44.2); Mean Corpuscular HGB Conc 33.6 g/dl (32-36); Mean Corpuscular Hemoglobin 30.1 pg (26-34); Mean Corpuscular Volume 89.6 fl (80-100); Mean Platelet Volume 10.4 fl (7.4-10.4); Monocytes Absolute Auto 0.7 K/mm3 (0.1-0.6); Monocytes Percent Auto 11.7 % (2.6-8.5); Neutrophils Absolute Auto 4.5 K/mm3 (1.3-6.7); Neutrophils Percent Auto 76.3 % (45.5-73.1); Platelet Count Result 176 k/mm3 (150-375); Red Blood Count 4.22 M/mm3 (4.2-5.4); Red Cell Distribution Width 13.1 % (11.5-14.5); White Blood Count 5.9 K/mm3 (4.5-10.0)
[2024-08-14 18:52] LABS: Alanine Aminotransferase 18 U/L (6-35); Albumin Level 4.3 g/dL (3.5-5.1); Alkaline Phosphatase 117 U/L (38-126); Anion Gap 9 mmol/L (4-12); Aspartate Amino Transferase 19 U/L (14-36); Blood Urea Nitrogen 12 mg/dL (7-17); Calcium 9.4 mg/dL (8.4-10.2); Carbon Dioxide 27 mmol/L (22-30); Chloride 100 mmol/L (98-107); Estimated Glomerular Filt Rate > 60; Glucose 153 mg/dL (65-110); Potassium 3.7 mmol/L (3.4-5.0); Sodium 136 mmol/L (137-145)
[2024-08-14 19:18] LABS: Influenza A QL RT-PCR Negative (Negative); Influenza B QL RT-PCR Negative (Negative); RSV RNA, RT-PCR Negative (Negative); SARS-CoV-2 RNA PCR Negative (Negative)
--- OUTSIDE RECORDS SUMMARY | 2024-08-14 21:13 | XMS_ITS | Encounter Summary ---
Author Organization [facility] Address [address] [place] [address] Phone Care Team Providers Care Top Case Assembler Name Role Phone Patrice Baum MD Primary [...] on file Legal Sex Female 12:20 PM CONTINUOUS IMPROVEMENT FACILITATOR Gender Identity Not on file Sexual Orientation [...] on filedocumented in this encounter Care Teams Top Case Assembler Relationship Specialty Start Date End Date Patrice Baum MD PCP - General Family Practice 07/11/18 documented as of this encounter
--- OUTSIDE RECORDS SUMMARY | 2024-08-14 21:13 | XMS_ITS | Referral Summary ---
Author Organization [facility] al Address [address] [place] [address] Care Team Providers Care Family And Consumer Science Professor Name Role Phone Patrice Baum MD Primary Care Provider Allergies Active Allergy Reactions Criticality Noted Date Comments Penicillin Hives Medium Reaction: HIVES, Medications latanoprost (XALATAN) 0.005 % ophthalmic solution Administer 1 drop into both eyes nightly 07/24/19 19 Active levothyroxine (SYNTHROID, LEVOTHROID) 50 mcg tablet Take 1 tablet (50 mcg total) by mouth assembler arranger before breakfast 07/04/19 19 Active fluticasone propionate [...] 02/26/2021 Assessment & Plan (05/03/2022 9:28 AM CAFETERIA AIDE): - stable stage 2 anterior wall prolapse [...] (07/11/2018): Added automatically from request for surgery [id number] History of malignant neoplasm of breast 07/25/19 18 Abnormal finding on mammography 07/22/2017 Chronic constipation 02/28/2017 Hematuria 10/13/2016 Vaginal atrophy 01/16/2016 Assessment & Plan (05/03/2022 9:29 AM CAFETERIA AIDE): - continue twice weekly vaginal estrogen, Rx [...] on file Legal Sex Female 12:20 PM CAFETERIA AIDE Gender Identity Not on file Sexual Orientation [...] (121 lb 14.6 oz) 04/09/2024 1:36 PM CAFETERIA AIDE Height 167.5 cm (5' 5.95 ) 04/09/2024 1:36 PM CS T Body Mass Index 19.71 04/09/2024 1:36 PM CAFETERIA AIDE Plan of Treatment Not on file Procedures Procedure Name Priority Date/Time Associated Diagnosis Comments DEXA AXIAL SKELETON BONE DENSITY 1 OR MORE SITES Routine 05/12/2017 5:03 PM CAFETERIA AIDE from Last 3 Months or Most Recently Relevant to Health Maintenance Results * Dexa Axial Skeleton Bone Density 1 or 2 Site (05/12/2017 5:03 PM CAFETERIA AIDE) Anatomical Region Laterality Modality N/A Nuclear Medicine 05/12/2017 5:03 PM CAFETERIA AIDE Narrative 05/12/2017 6:28 PM CAFETERIA AIDE NICHOLAS LOWERY M.D. SUNITA DARNELL M.D.PHD. FINAL REPORT The radiology attending physician has personally reviewed this study, and has reviewed and/or edited this written report and agrees with it. ACC# Date Time Exam [id number] May 12, 2017 11:03:00 [id number] DEXA Axial 1 or 2 sites EXAMINATION: [...] LOWERY M.D. on May 12 2017 12:26P [id number] MESSINA M.D.PHD. FINAL REPORT The radiology attending physician has personally reviewed this study, and has reviewed and/or edited this written report and agrees with it. Attending: ZOYA LANDRY Requesting: Miri Minaya Requesting Fax: Attending Fax: Attending ID: [id number] Requesting ID: [id number] Report To 1 ID: [id number] Report To 1 Name: , Report To 1 FAX: NextGen Order #: Procedure Note Miscellaneous, Not In File - 05/12/2017 NICHOLAS LOWERY M.D. SUNITA DARNELL M.D.PHD. FINAL REPORT The radiology attending physician has personally reviewed this study, and has reviewed and/or edited this written report and agrees with it. ACC# Date Time Exam [id number] May 12, 2017 11:03:00 [id number] DEXA Axial 1 or 2 sites EXAMINATION: [...] LOWERY M.D. on May 12 2017 12:26P [id number] LOWERY M.D. SUNITA DARNELL M.D.PHD. FINAL REPORT The radiology attending physician has personally reviewed this study, and has reviewed and/or edited this written report and agrees with it. Attending: ZOYA LANDRY Requesting: Miri Minaya Requesting Fax: Attending Fax: Attending ID: [id number] Requesting ID: [id number] Report To 1 ID: [id number] Report To 1 Name: , Report To 1 FAX: NextGen Order #: Miri Minaya MD IMG DXA PROCEDURES Final Res ult from Last 3 Months or Most Recently Relevant to Health Maintenance Insurance [facility] MEDICARE [facility] MEDICARE [facility] MEDICARE Advance Directives For more information, please contact: [phone] * Full Code (Latest Code Status on File) Date Activated Date Inactivated Comments 05/18/2023 9:12 AM 05/18/2023 3:25 PM * Full Code Date Activated Date Inactivated Comments 07/31/2018 10:10 AM 07/31/2018 4:02 PM Care Teams Family And Consumer Science Professor Relationship Specialty Start Date End Date Patrice Baum MD PCP - General Family Practice 07/11/18
--- OUTSIDE RECORDS SUMMARY | 2024-08-14 21:13 | XMS_ITS | Clinical Summary ---
Author Organization [facility] al Address [address] [place] [address] Care Team Providers Care Data Warehouse Manager Name Role Phone Patrice Baum MD Primary Care Provider Allergies Active Allergy Reactions Criticality Noted Date Comments Penicillin Hives Medium Reaction: HIVES, Medications latanoprost (XALATAN) 0.005 % ophthalmic solution Administer 1 drop into both eyes nightly 07/24/19 19 Active levothyroxine (SYNTHROID, LEVOTHROID) 50 mcg tablet Take 1 tablet (50 mcg total) by mouth resizer operator before breakfast 07/04/19 19 Active fluticasone propionate [...] 02/26/2021 Assessment & Plan (05/03/2022 9:28 AM SPECIAL WEAPONS AND TACTICS OFFICER): - stable stage 2 anterior wall prolapse [...] (07/11/2018): Added automatically from request for surgery [id number] History of malignant neoplasm of breast 07/25/19 18 Abnormal finding on mammography 07/22/2017 Chronic constipation 02/28/2017 Hematuria 10/13/2016 Vaginal atrophy 01/16/2016 Assessment & Plan (05/03/2022 9:29 AM SPECIAL WEAPONS AND TACTICS OFFICER): - continue twice weekly vaginal estrogen, Rx [...] 06/06/2016 Surgical History Surgery Date Site/Laterality Comments CO TOTAL ABDOMINAL HYSTERECT W/WO RMVL TUBE OVARY Total Abdominal Hysterectomy - 1987 (Added by TW Conv) CO APPENDECTOMY Appendectomy - at 11 years of age (Added by TW Conv) CO UNLISTED PROCEDURE BREAST 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) VAGINAL SURGERY COLPOPEXY SACRAL Vaginal Surgery Colpopexy Sacral - (Added by TW Conv) CO BX BREAST NEEDLE CORE W/O IMAGING GUIDANCE [...] on file Legal Sex Female 12:20 PM SPECIAL WEAPONS AND TACTICS OFFICER Gender Identity Not on file Sexual Orientation [...] (121 lb 14.6 oz) 04/09/2024 1:36 PM SPECIAL WEAPONS AND TACTICS OFFICER Height 167.5 cm (5' 5.95 ) 04/09/2024 1:36 PM CS T Body Mass Index 19.71 04/09/2024 1:36 PM SPECIAL WEAPONS AND TACTICS OFFICER Plan of Treatment Health Maintenance Due Date [...] OR MORE SITES Routine 05/12/2017 5:03 PM SPECIAL WEAPONS AND TACTICS OFFICER from Last 3 Months or Most Recently Relevant to Health Maintenance Results * Dexa Axial Skeleton Bone Density 1 or 2 Site (05/12/2017 5:03 PM SPECIAL WEAPONS AND TACTICS OFFICER) Anatomical Region Laterality Modality N/A Nuclear Medicine 05/12/2017 5:03 PM SPECIAL WEAPONS AND TACTICS OFFICER Narrative 05/12/2017 6:28 PM SPECIAL WEAPONS AND TACTICS OFFICER NCIHOLAS LOWERY M.D. SUNITA DARNELL M.D.PHD. FINAL REPORT The radiology attending physician has personally reviewed this study, and has reviewed and/or edited this written report and agrees with it. ACC# Date Time Exam [id number] May 12, 2017 11:03:00 [id number] DEXA Axial 1 or 2 sites EXAMINATION: [...] by: Nicholas Lowery M.D. Requested By: Miri Minyaa M.D. Dictated By: SUNITA DARNELL M.D.PHD. on May 12 2017 11:25A This document has been electronically signed by: NICHOLAS LOWERY M.D. on May 12 2017 12:26P [id number] LOWERY M.D. SUNITA DARNELL M.D.PHD. FINAL REPORT The radiology attending physician has personally reviewed this study, and has reviewed and/or edited this written report and agrees with it. Attending: ZOYA LANDRY Requesting: Miri Minaya Requesting Fax: Attending Fax: Attending ID: [id number] Requesting ID: [id number] Report To 1 ID: [id number] Report To 1 Name: , Report To 1 FAX: NextGen Order #: Procedure Note Miscellaneous, Not In File - 05/12/2017 NICHOLAS LOWERY M.D. SUNITA DARNELL M.D.PHD. FINAL REPORT The radiology attending physician has personally reviewed this study, and has reviewed and/or edited this written report and agrees with it. ACC# Date Time Exam [id number] May 12, 2017 11:03:00 [id number] DEXA Axial 1 or 2 sites EXAMINATION: [...] LOWERY M.D. on May 12 2017 12:26P [id number] LOWERY M.D. SUNITA DARNELL M.D.PHD. FINAL REPORT The radiology attending physician has personally reviewed this study, and has reviewed and/or edited this written report and agrees with it. Attending: ZOYA LANDRY Requesting: Miri Minaya Requesting Fax: Attending Fax: Attending ID: [id number] Requesting ID: [id number] Report To 1 ID: [id number] Report To 1 Name: , Report To 1 FAX: NextGen Order #: Miri Minaya MD IMG DXA PROCEDURES Final Res ult from Last 3 Months or Most Recently Relevant to Health Maintenance Insurance [facility] MEDICARE [facility] MEDICARE [employer] MEDICARE Advance Directives For more information, please contact: [phone] * Full Code (Latest Code Status on File) Date Activated Date Inactivated Comments 05/18/2023 9:12 AM 05/18/2023 3:25 PM * Full Code Date Activated Date Inactivated Comments 07/31/2018 10:10 AM 07/31/2018 4:02 PM Care Teams Data Warehouse Manager Relationship Specialty Start Date End Date Patrice Baum MD PCP - General Family Practice 07/11/18
== END 2024-08-14 21:38 | disposition home or self-care (01) ==
LOC: ANHED 21:11
PROVIDERS: Physician Assistant; Emergency Provider Emergency Medicine; PCP Family Medicine
DX: J06.9 Acute upper respiratory infection, unspecified (principal); Z20.822 Contact with and (suspected) exposure to COVID-19; E11.9 Type 2 diabetes mellitus without complications; I10 Essential (primary) hypertension; F03.90 Unspecified dementia, unspecified severity, without behavioral disturbance, psychotic disturbance, mood disturbance, and anxiety; E03.9 Hypothyroidism, unspecified; E78.5 Hyperlipidemia, unspecified
CPT/HCPCS: 36415; 71046; 80053; 85025; 87637; 99283

== ENCOUNTER 2025-01-28 14:51 | Outpatient (CLI) | payer MEDICARE, SELFPAY ==
--- NOTE | ~2025-01-28 | XR_ITS ---
XR abdomen/kub 1V 01/28/2025 15:13 INDICATION: Constipation TECHNIQUE: KUB COMPARISON: None FINDINGS: Bowel gas pattern is normal. Moderate colonic fecal loading. There is no evidence of free air, mass, organomegaly, ascites or obstruction. No abnormal calculi are seen. The bones appear intact. There are 3 lag screws transfixing the right femoral neck. Mild lumbar spondylosis with levocurvature. IMPRESSION: 1: No acute abdominal abnormality identified. Reviewed, dictated and finalized at location O.
--- OUTSIDE RECORDS SUMMARY | 2025-01-28 15:08 | XMS_ITS | Clinical Summary ---
Author Organization [facility] Address [address] [place] [address] Care Team Providers Care [employer] Assistant Football Coach Name Role Phone Patrice Baum MD Primary Care Provider Allergies Active Allergy Reactions Criticality Noted Date Comments Penicillin Hives Medium Reaction: HIVES, Medications latanoprost (XALATAN) 0.005 % ophthalmic solution Administer 1 drop into both eyes nightly 9 Active levothyroxine (SYNTHROID, LEVOTHROID) 50 mcg tablet Take 1 tablet (50 mcg total) by mouth wildlife biologist before breakfast 9 Active fluticasone propionate (FLONASE) 50 mcg/actuation nasal spray 2 sprays daily 2 Active loratadine (CLARITIN) 10 mg tablet Take 1 tablet (10 mg total) by mouth as needed 2 Active tretinoin (RETIN-A) 0.025 % cream APPLY A PEA SIZE AMOUNT TO FACE NIGHTLY 60 MINUTES AFTER WASHING FACE 1 Active triamcinolone (KENALOG) 0.1 % ointment 2 Active estradioL (ESTRACE) 0.01 % (0.1 mg/gram) vaginal creamIndications: Atrophic Vaginitis associated with Menopause Insert one gram vaginally twice per week (such as Tuesday and ). 42.5 g 3 2 Active azelastine (ASTELIN) 137 mcg (0.1 %) nasal spray 3 Active timolol (TIMOPTIC) 0.5 % ophthalmic solution Administer 1 drop into the left eye daily Left eye each morning 3 Active pancrelipase (Creon) 24,000 units of lipase capsuleIndication s:exocrine pancreatic insufficiency Take 1 capsule by mouth 3 (three) times a day with meals 90 capsule 3 4 Active clobetasoL (TEMOVATE) 0.05 % external solution APPLY TWICE DAILY TO INFLAMED OR ITCHY AREAS IN THE SCALP WHEN NEEDED (AVOID FACE) 4 Active levothyroxine (SYNTHROID) 88 mcg tablet Take 1 tablet (88 mcg total) by mouth daily 4 Active atorvastatin (LIPITOR) 10 mg tablet Take 1 tablet (10 mg total) by mouth nightly at bedtime 4 Active ketoconazole (NIZORAL) 2 % shampoo 4 Active memantine (NAMENDA) 10 mg tabletIndications :Dementia without behavioral disturbance (HCC) Take 1 tablet (10 mg total) by mouth 2 (two) times a day 180 tablet 1 5 Active donepeziL (ARICEPT) 5 mg tabletIndications :Dementia without behavioral disturbance (HCC) Take 1 tablet (5 mg total) by mouth nightly 90 tablet 1 5 Active Active Problems Problem Noted Date Diagnosed Date Abnormal weight loss 05/04/2023 Disease of pancreas 05/04/2023 Other diseases of stomach and duodenum 3 Mixed conductive and sensori neural hearing loss of right ear 11/30/2021 Otalgia 11/30/2021 Diplopia 08/27/2021 Prolapse of anterior vaginal wall 02/26/2021 Assessment & Plan (05/03/2022 9:28 AM CARD PUNCHING MACHINE OPERATOR): - stable stage 2 anterior wall prolapse [...] (07/11/2018): Added automatically from request for surgery [id number] History of malignant neoplasm of breast 07/25/19 18 Abnormal finding on mammography 07/22/2017 Chronic constipation 02/28/2017 Hematuria 10/13/2016 Vaginal atrophy 01/16/2016 Assessment & Plan (05/03/2022 9:29 AM CARD PUNCHING MACHINE OPERATOR): - continue twice weekly vaginal estrogen, Rx [...] 06/06/2016 Surgical History Surgery Date Site/Laterality Comments [place] TOTAL ABDOMINAL HYSTERECT W/WO RMVL TUBE OVARY Total Abdominal Hysterectomy - 1987 (Added by TW Conv) [place] APPENDECTOMY Appendectomy - at 11 years of age (Added by TW Conv) [place] UNLISTED PROCEDURE BREAST 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) VAGINAL SURGERY COLPOPEXY SACRAL Vaginal Surgery Colpopexy Sacral - (Added by TW Conv) [place] BX BREAST NEEDLE CORE W/O IMAGING GUIDANCE [...] HL (hearing loss) Hyperlipidemia Glaucoma Alzheimer disease Family History Medical History Relation Name Comments [...] Date Smoking Tobacco: Never Smokeless Tobacco: Never Tobacco Cessation:Counseling Given: Not Answered Alcohol Use Standard Drinks/Week Comments No 0 [...] on file Legal Sex Female 12:20 PM CARD PUNCHING MACHINE OPERATOR Gender Identity Not on file Sexual Orientation Not on file Obstetrics History Last Filed Vital Signs Vital Sign Reading Time Taken Comments Blood Pressure 143/79 09/10/2024 1:55 PM CDT Pulse 70 09/10/2024 1:55 PM CDT Temperature 36.3 C (97.4 F) 09/10/2024 1:55 PM CDT Respiratory Rate 15 09/10/2024 1:55 PM CDT Oxygen Saturation 96% 09/10/2024 1:55 PM CDT Inhaled Oxygen Concentration - - Weight 61.6 kg (135 lb 12.8 oz) 09/10/2024 1:55 PM CDT Height 165.1 cm (5' 5) 2024 1:06 PM CDT Body Mass Index 22.6 2024 1:06 PM CDT Plan of Treatment Health Maintenance Due Date Last Done Comments Depression Screening 1940 Well Visit 65+ 08/21/2004 Zoster Vaccine (2 of 3) 08/01/2016 06/06/2016 Osteoporosis Screening-Bone Density Scan 05/12/2019 05/12/2017, 11/25/2015, 10/03/2012 Pneumococcal vaccine 65+ (2 of 2 - PCV20 or PCV21) 07/21/2020 07/21/2019 Fall Risk Assessment 05/18/2024 05/18/2023 Covid-19 Vaccine (3 - season) 09/11/202401/2024, 08/06/2020 Influenza Vaccine (#1) 2025 03/13/2024, 2017 DTaP/Tdap/Td Vaccine (2 - Td or Tdap) 02/03/2026 Hepatitis B Screening Completed 09/14/1999 , 03/23/1999, 02/16/1999 Procedures Procedure Name Priority Date/Time Associated Diagnosis Comments DEXA AXIAL SKELETON BONE DENSITY 1 OR MORE SITES Routine 05/12/2017 5:03 PM CARD PUNCHING MACHINE OPERATOR from Last 3 Months or Most Recently Relevant to Health Maintenance Results * Dexa Axial Skeleton Bone Density 1 or 2 Site (05/12/2017 5:03 PM CARD PUNCHING MACHINE OPERATOR) Anatomical Region Laterality Modality N/A Nuclear Medicine 05/12/2017 5:03 PM CARD PUNCHING MACHINE OPERATOR Narrative 05/12/2017 6:28 PM CARD PUNCHING MACHINE OPERATOR NICHOLAS LOWERY M.D. SUNITA DARNELL M.D.PHD. FINAL REPORT The radiology attending physician has personally reviewed this study, and has reviewed and/or edited this written report and agrees with it. ACC# Date Time Exam [id number] May 12, 2017 11:03:00 [id number] DEXA Axial 1 or 2 sites EXAMINATION: [...] -2.0 is below the expected range for age. A Z-score below the expected range for age in a patient with recent fractures and/or chronic corticosteroid treatment is consistent with a diagnosis of osteoporosis. B) In post menopausal women and males over 50, comparison of the measured bone mineral density with the average value in young normal subjects (the T-score) has been found to be useful in [...] LOWERY M.D. on May 12 2017 12:26P [id number] LOWERY M.D. SUNITA DARNELL M.D.PHD. FINAL REPORT The radiology attending physician has personally reviewed this study, and has reviewed and/or edited this written report and agrees with it. Attending: ZOYA LANDRY Requesting: Miri Minaya Requesting Fax: Attending Fax: Attending ID: [id number] Requesting ID: [id number] Report To 1 ID: [id number] Report To 1 Name: , Report To 1 FAX: NextGen Order #: Procedure Note Miscellaneous, Not In File - 05/12/2017 NICHOLAS LOWERY M.D. SUNITA DARNELL M.D.PHD. FINAL REPORT The radiology attending physician has personally reviewed this study, and has reviewed and/or edited this written report and agrees with it. ACC# Date Time Exam [id number] May 12, 2017 11:03:00 [id number] DEXA Axial 1 or 2 sites EXAMINATION: [...] -2.0 is below the expected range for age. A Z-score below the expected range for age in a patient with recent fractures and/or chronic corticosteroid treatment is consistent with a diagnosis of osteoporosis. B) In post menopausal women and males over 50, comparison of the measured bone mineral density with the average value in young normal subjects (the T-score) has been found to be useful in [...] LOWERY M.D. on May 12 2017 12:26P [id number] LOWERY M.D. SUNITA DARNELL M.D.PHD. FINAL REPORT The radiology attending physician has personally reviewed this study, and has reviewed and/or edited this written report and agrees with it. Attending: ZOYA LANDRY Requesting: Miri Minaya Requesting Fax: Attending Fax: Attending ID: [id number] Requesting ID: [id number] Report To 1 ID: [id number] Report To 1 Name: , Report To 1 FAX: NextGen Order #: Miri Minaya MD IMG DXA PROCEDURES Final Res ult from Last 3 Months or Most Recently Relevant to Health Maintenance Insurance [facility] MEDICARE [facility] MEDICARE [facility] MEDICARE [facility] Address: [facility] [address] [id number] Advance Directives For more information, please contact: [phone] * Full Code (Latest Code Status on File) Date Activated Date Inactivated Comments 05/18/2023 9:12 AM 05/18/2023 3:25 PM * Full Code Date Activated Date Inactivated Comments 07/31/2018 10:10 AM 07/31/2018 4:02 PM Care Teams [employer] School Assistant Football Coach Relationship Specialty Start Date End Date Patrice Baum MD PCP - General Family Practice 07/11/18
--- OUTSIDE RECORDS SUMMARY | 2025-01-28 15:08 | XMS_ITS | Encounter Summary ---
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
== END 2025-01-28 14:52 | disposition home or self-care (01) ==
PROVIDERS: PCP Family Medicine; Visit Provider Nurse Practitioner
DX: K59.00 Constipation, unspecified (principal)
CPT/HCPCS: 74018

== ENCOUNTER 2025-02-07 09:16 | Outpatient (CLI) | payer MEDICARE, SELFPAY ==
--- OUTSIDE RECORDS SUMMARY | 2025-02-07 09:35 | XMS_ITS | Encounter Summary ---
Author Organization [facility] Address [address] [place] [address] Phone Care Team Providers Care Staff Physician Name Role Phone Patrice Baum MD Primary [...] on file Legal Sex Female 12:20 PM COOK PICKLED MEAT Gender Identity Not on file Sexual Orientation [...] on filedocumented in this encounter Care Teams Staff Physician Relationship Specialty Start Date End Date Patrice Baum MD PCP - General Family Practice 07/11/18 documented as of this encounter
--- OUTSIDE RECORDS SUMMARY | 2025-02-07 09:35 | XMS_ITS | Clinical Summary ---
Author Organization [facility] Address [address] [place] [address] Care Team Providers Care Quality Control Manager Name Role Phone Patrice Baum MD Primary Care Provider Allergies Active Allergy Reactions Criticality Noted Date Comments Penicillin Hives Medium Reaction: HIVES, Medications latanoprost (XALATAN) 0.005 % ophthalmic solution Administer 1 drop into both eyes nightly 07/24/19 19 Active levothyroxine (SYNTHROID, LEVOTHROID) 50 mcg tablet Take 1 tablet (50 mcg total) by mouth sprigger before breakfast 07/04/19 19 Active fluticasone propionate [...] 24 Active ketoconazole (NIZORAL) 2 % shampoo 01/25/20 24 Active memantine (NAMENDA) 10 mg tabletIndication s:Dementia without behavioral disturbance (HCC) Take 1 tablet (10 mg total) by mouth 2 (two) times a day 180 tablet 1 08/23/19 25 Active donepeziL (ARICEPT) 5 mg tabletIndication s:Dementia without behavioral disturbance (HCC) TAKE 1 TABLET BY MOUTH EVERY DAY AT NIGHT 90 tablet 1 02/07/20 25 Active donepeziL (ARICEPT) 5 mg tabletIndication s:Dementia without behavioral disturbance (HCC) Take 1 tablet (5 mg total) by mouth nightly 90 tablet 1 08/23/19 25 025 Discontinued Active Problems Problem Noted Date Diagnosed Date Abnormal weight loss 05/04/2023 Disease of pancreas 05/04/2023 Other diseases of stomach and duodenum Mixed conductive and sensori neural hearing loss of right ear 11/30/2021 Otalgia 11/30/2021 Diplopia 08/27/2021 Prolapse of anterior vaginal wall 02/26/2021 Assessment & Plan (05/03/2022 9:28 AM FRONT OFFICE SECRETARY): - stable stage 2 anterior wall prolapse [...] (07/11/2018): Added automatically from request for surgery [id number] History of malignant neoplasm of breast 07/25/19 18 Abnormal finding on mammography 07/22/2017 Chronic constipation 02/28/2017 Hematuria 10/13/2016 Vaginal atrophy 01/16/2016 Assessment & Plan (05/03/2022 9:29 AM FRONT OFFICE SECRETARY): - continue twice weekly vaginal estrogen, Rx [...] D ose, Split, Preservative Free, Intramuscular 03/30/2018 Peatix SARS-CoV-2 Monovalent Vaccination (12+ Yrs) PURPLE 08/06/2020 Pneumococcal Conjugate PCV 13 07/21/2019 Tdap 02/04/2016 ZOSTER LIVE 06/06/2016 Surgical History Surgery Date Site/Laterality Comments [place] TOTAL ABDOMINAL HYSTERECT W/WO RMVL TUBE OVARY Total Abdominal Hysterectomy - 1987 (Added by TW Conv) [place] APPENDECTOMY Appendectomy - at 11 years of age (Added by TW Conv) [place] UNLISTED PROCEDURE BREAST 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) VAGINAL SURGERY COLPOPEXY SACRAL Vaginal Surgery Colpopexy Sacral - (Added by TW Conv) [place] BX BREAST NEEDLE CORE W/O IMAGING GUIDANCE [...] on file Legal Sex Female 12:20 PM FRONT OFFICE SECRETARY Gender Identity Not on file Sexual Orientation [...] 05/18/2024 05/18/2023 Covid-19 Vaccine (3 - season) 02/04/202501/2024, 08/06/2020 Influenza Vaccine (#1) 2025 03/13/2024, 2017 DTaP/Tdap/Td Vaccine (2 - Td or Tdap) 02/03/2026 Hepatitis B Screening Completed 09/14/1999 , 03/23/1999, 02/16/1999 Procedures Procedure Name Priority Date/Time Associated Diagnosis Comments DEXA AXIAL SKELETON BONE DENSITY 1 OR MORE SITES Routine 05/12/2017 5:03 PM FRONT OFFICE SECRETARY from Last 3 Months or Most Recently Relevant to Health Maintenance Results * Dexa Axial Skeleton Bone Density 1 or 2 Site (05/12/2017 5:03 PM FRONT OFFICE SECRETARY) Anatomical Region Laterality Modality N/A Nuclear Medicine 05/12/2017 5:03 PM FRONT OFFICE SECRETARY Narrative 05/12/2017 6:28 PM FRONT OFFICE SECRETARY NICHOLAS LOWERY M.D. SUNITA DARNELL M.D.PHD. FINAL REPORT The radiology attending physician has personally reviewed this study, and has reviewed and/or edited this written report and agrees with it. ACC# Date Time Exam [id number] May 12, 2017 11:03:00 [id number] DEXA Axial 1 or 2 sites EXAMINATION: [...] Femoral Neck(Left) 05/12/2017 76 0.666 -1.7 0.2%# 0.2%12/31/1999 59 0.664 -1.7 Total Hip(Left) 05/12/2017 76 [...] LOWERY M.D. on May 12 2017 12:26P [id number] LOWERY M.D. SUNITA DARNELL M.D.PHD. FINAL REPORT The radiology attending physician has personally reviewed this study, and has reviewed and/or edited this written report and agrees with it. Attending: ZOYA LANDRY Requesting: Miri Minaya Requesting Fax: Attending Fax: Attending ID: [id number] Requesting ID: [id number] Report To 1 ID: [id number] Report To 1 Name: , Report To 1 FAX: NextGen Order #: Procedure Note Miscellaneous, Not In File - 05/12/2017 NICHOLAS LOWERY M.D. SUNITA DARNELL M.D.PHD. FINAL REPORT The radiology attending physician has personally reviewed this study, and has reviewed and/or edited this written report and agrees with it. ACC# Date Time Exam [id number] May 12, 2017 11:03:00 [id number] DEXA Axial 1 or 2 sites EXAMINATION: [...] LOWERY M.D. on May 12 2017 12:26P [id number] LOWERY M.D. SUNITA DARNELL M.D.PHD. FINAL REPORT The radiology attending physician has personally reviewed this study, and has reviewed and/or edited this written report and agrees with it. Attending: ZOYA LANDRY Requesting: Miri Minaya Requesting Fax: Attending Fax: Attending ID: [id number] Requesting ID: [id number] Report To 1 ID: [id number] Report To 1 Name: , Report To 1 FAX: NextGen Order #: Miri Minaya MD IMG DXA PROCEDURES Final Res ult from Last 3 Months or Most Recently Relevant to Health Maintenance Insurance [facility] MEDICARE [facility] MEDICARE [facility] MEDICARE Advance Directives For more information, please contact: [phone] * Full Code (Latest Code Status on File) Date Activated Date Inactivated Comments 05/18/2023 9:12 AM 05/18/2023 3:25 PM * Full Code Date Activated Date Inactivated Comments 07/31/2018 10:10 AM 07/31/2018 4:02 PM Care Teams Quality Control Manager Relationship Specialty Start Date End Date Patrice Baum MD PCP - General Family Practice 07/11/18
[2025-02-07 13:12] LABS: Hematocrit 39.1 % (37.0-47.0); Hemoglobin 12.6 g/dL (12.0-15.0); Immature Granulocyte Percent A 0.2 % (0-0.5); Lymphocytes Absolute Auto 0.85 K/mm3 (0.9-3.2); Mean Corpuscular HGB Conc 32.2 g/dl (32-36); Mean Corpuscular Hemoglobin 29.6 pg (26-34); Mean Corpuscular Volume 92.0 fl (80-100); Nucleated Red Blood Cells Absolute Auto 0.000 K/mm3 (0.0-0.012); Nucleated Red Blood Cells Perc 0.0 % (0.0-0.2); Platelet Count Result 238 k/mm3 (150-375); Red Blood Count 4.25 M/mm3 (4.2-5.4); White Blood Count 4.1 K/mm3 (4.5-10.0)
[2025-02-07 13:35] LABS: Hemoglobin A1C 6.9 % (<5.7)
[2025-02-07 13:44] LABS: MALB Creatinine Ratio 11.5 mg/g (0-30)
[2025-02-07 13:52] LABS: Alanine Aminotransferase 15 U/L (6-35); Albumin Level 4.1 g/dL (3.5-5.1); Alkaline Phosphatase 91 U/L (38-126); Anion Gap 7 mmol/L (4-12); Aspartate Amino Transferase 27 U/L (14-36); Bilirubin,Total 0.6 mg/dL (0.2-1.3); Blood Urea Nitrogen 17 mg/dL (7-17); Calcium 9.5 mg/dL (8.4-10.2); Carbon Dioxide 30 mmol/L (22-30); Chloride 101 mmol/L (98-107); Cholesterol 196 mg/dL (0-200); Estimated Glomerular Filt Rate > 60; Glucose 139 mg/dL (65-110); HDL Direct 72 mg/dL; Potassium 4.1 mmol/L (3.4-5.0); Sodium 138 mmol/L (137-145); Total Protein 7.0 g/dL (6.3-8.2); Triglycerides 102 mg/dL (<150)
[2025-02-07 13:53] LABS: Thyroid Stimulating Hormone Reflex 1.230 uIU/mL (0.465-4.68)
[2025-02-07 14:52] LABS: Vitamin B12 401.0 pg/mL (239-931)
== END 2025-02-07 09:17 | disposition home or self-care (01) ==
LOC: ANHGOSHLAB 09:17
PROVIDERS: PCP Family Medicine; Visit Provider Family Medicine
DX: E78.5 Hyperlipidemia, unspecified (principal); I10 Essential (primary) hypertension; E11.9 Type 2 diabetes mellitus without complications; E55.9 Vitamin D deficiency, unspecified; E53.8 Deficiency of other specified B group vitamins
CPT/HCPCS: 36415; 80053; 80061; 82043; 82306; 82607; 83036; 84443; 85025